=== PATIENT | male | born 1960 | race African-American/Black ===

== ENCOUNTER 2017-03-30 04:54 | Inpatient (IN) ==
[2017-03-30 05:18] LABS: Basophils # 0.1 10*3/uL (0.0-0.2); Basophils % 0.9 % (0.0-0.8); Eosinophils # 0.1 10*3/uL (0.0-0.87); Eosinophils % 1.1 % (0.00-10.9); Hemoglobin 14.8 GM/DL (14.0-18.0); Immature Granulocytes % 0.5 %; Immature Granulocytes Absolute 0.06 #; Lymphocytes # 2.6 10*3/uL (1.4-4.0); Mean Corpuscular HGB Conc 35.2 GM/DL (32-36); Mean Corpuscular Hemoglobin 28 PG (27-34); Mean Corpuscular Volume 79.4 FL (87-102); Mean Platelet Volume 12.3 FL (9.6-12.0); Monocytes # 0.8 10*3/uL (0.11-0.8); Neutrophils # 7.3 10*3/uL (1.4-7.4); Neutrophils % 66.5 % (38.7-73.9); Platelet Count 153 T/CUMM (130-400); Red Blood Count 5.29 MC/CUMM (3.8-5.5); Red Cell Distribution Width 13.5 % (9.3-17.3); White Blood Count 10.9 T/CUMM (4-12)
--- NOTE | 2017-03-30 05:18 | Emergency Department Note ---
ISenait Emily, am scribing for, and in the presence of, Bertin Ohara MD 05: 15. Lev Angeles Robert M, MD, personally performed the services described in this documentation, ascribed by Guadalupe Sapp in my presence, and it is both accurate and complete 517 . Arrival - Arrival Mode of Arrival: Stretcher Limitations: No Limitations Source: Patient - History of Present Illness Onset (ago): hour(s) Consistency: constant Severity: mild, moderate Severity scale (1-10): 4 <Bertin Ohara - Last Filed: 03/30/17 05:48> <Tano Villegas - Last Filed: 03/30/17 06:51> - Arrival Stated Complaint: weakness - History of Present Illness HPI Narrative: Pt is a 56 y/o male who came to ED by EMS for further evaluation of fall at home that happened while going to the bathroom earlier this morning and could not get up. Pt denies any pains at this time. He reports having slurred speech for 3 weeks now and no new sxs currently. Pt states he is in the middle of looking for a PCP. PMHx of CHF, IDDM, NIDDM, HTN. (Guadalupe Sapp) Pt is a 56 y/o male who came to ED by EMS for further evaluation of fall at home that happened while going to the bathroom earlier this morning and could not get up. Pt denies any pains at this time. He reports having slurred speech for 3 weeks now and no new sxs currently. Pt states he is in the middle of looking for a PCP. PMHx of CHF, IDDM, NIDDM, HTN. (Bertin Ohara) Allergies/Adverse Reactions: Allergies Allergy/AdvReac Type Severity Reaction Status Date / Time No Known Allergies Allergy Verified 03/30/17 05:10 Home Medications: Home Medications Medication Instructions Recorded Confirmed Type Carvedilol [Coreg] 12.5 mg PO BID #60 tablet 10/26/15 12/01/16 Rx Furosemide Tab [Lasix Tab] 80 mg PO DAILY #30 tablet 10/26/15 12/01/16 Rx Glimepiride [Amaryl] 4 mg PO DAILY W/BREAKFAST #30 10/26/15 12/01/16 Rx tablet cloNIDine TAB [Catapres Tab] 0.1 mg PO BID #60 tablet 10/26/15 12/01/16 Rx Insulin NPH Human Isophane 30 units SUBCUT 1800 03/09/16 12/07/16 History [NovoLIN N] Insulin NPH Human Isophane 60 unit SUBCUT QAM 03/09/16 12/07/16 History [NovoLIN N] dilTIAZem HCl [Cartia XT] 180 mg PO DAILY 12/01/16 12/04/16 History Pantoprazole Tab [Protonix Tab] 40 mg PO BIDAC 12/04/16 12/07/16 History Potassium Chloride [Klor-Con M20] 20 meq PO DAILY 12/04/16 12/07/16 History Review of System - Review of System 12 point system: reviewed and no additional remarkable complaints except as stated - Review of System Constitutional: Present: weakness (fell going to bathroom). Absent: fever Respiratory: Absent: respiratory distress Cardiovascular: Absent: chest pain Gastrointestinal: Absent: abdominal pain, nausea, vomiting Musculoskeletal: Absent: arm pain, back pain Skin: Absent: rash Neurological: Absent: headache <Bertin Ohara - Last Filed: 03/30/17 05:48> Medical,Surgical,& Family Hx - Medical History Cardio: History of: CHF, Hypertension Psychological: History of: Depression, Previous Suicide Attempt (2005) Neurology: History of: Cerebrovascular Accident No history of: Seizures HEENT: History of: Eye Problem (LEFT cataract) Endocrine: History of: Diabetes Mellitus (IDDM), Diabetes Mellitus (NIDDM) Respiratory: History of: Asthma, Obstructive Sleep Apnea (sleeps with cpap) Renal: No history of: Renal Problems Genitourinary: No history of: Bladder Problem, Kidney Stones Gastrointestinal: History of: GERD Musculoskeletal: History of: Back/Neck Problems (back pain) Hematology: No history of: Blood Transfusion Reaction Reproductive: No histroy: Reproductive Cancer Other: No history of: Anesthesia Reactions, Cancer, Miscellaneous Medical Problems ( benign tumor removed from right leg in 1994) - Surgical History Cardiac Surgeries: Patient Denies: Cardiac Catheterization HEENT Surgeries: Patient denies: Eye Surgery, Tonsilectomy & Adenoidectomy Abdominal Surgeries: Surgical HX of: EGD Patient denies: Abdominal Surgery, Appendectomy, Cholecystectomy, Colonoscopy , Gastric Bypass Surgery, Hernia Repair Reproductive Surgeries: Patient denies;: Genitourinary Surgery, Vasectomy Orthopedic Surgeries: Surgical HX of;: Orthopedic Surgery (right leg) - Family History Family History: Reports;: Family Diabetes (Mother), Family Heart Disease (Mother , Father), Family Hypertension (Mother, Father) Denies;: Family Anesthesia Reaction, Family Cancer, Family Psychiatric Problems, Family Stroke - Social History Smoking Status: Never smoker <Bertin Ohara - Last Filed: 03/30/17 05:48> Exam - General General appearance: alert, in no apparent distress - Head Head exam: Present: atraumatic, normocephalic - Eye Eye exam: Present: PERRL, EOMI - ENT ENT exam: Present: mucous membranes moist. Absent: mucous membranes dry - Neck Neck exam: Present: full ROM. Absent: tenderness - Chest Chest inspection: Present: symmetric chest wall rise. Absent: tenderness - Respiratory Respiratory exam: Present: normal lung sounds bilaterally. Absent: respiratory distress - Cardiovascular Cardiovascular exam: Present: regular rate, normal rhythm, normal heart sounds - Extremities Exam Extremities exam: Present: full ROM, other (left thigh was palpated but no mass palpable). Absent: tenderness, pedal edema - Neurological Exam Neurological exam: Present: alert, oriented X3, CN II-XII intact, other ( garbled speech but intelligible; no aphasia; right sided weakness residual and left side stable). Absent: motor sensory deficit - Psychiatric Psychiatric exam: Present: normal affect, normal mood - Skin Skin exam: Present: warm, dry <Bertin Ohara - Last Filed: 03/30/17 05:48> Vital Signs: Vital Signs Temperature 98.6 F 03/30/17 04:54 Pulse Rate 81 03/30/17 04:54 Respiratory Rate 16 03/30/17 04:55 Blood Pressure 228/123 03/30/17 04:54 O2 Sat by Pulse Oximetry 100 03/30/17 04:54 Course - Consultations Time: 05:48 <Bertin Ohara - Last Filed: 03/30/17 05:48> <Tano Villegas - Last Filed: 03/30/17 06:51> Course Narrative: Patient's clinical presentation, laboratory and radiograph findings were discussed with James who is covering the hospitalist service. Patient be seen here in the emergency room and evaluated for admission. (Tano Villegas) - Consultations Consultation #1: The patient will be signed out to Dr. Tano Villegas who will finish disposition. Chemistry and urine is pending. (Bertin Ohara) Results - Labs CBC & BMP: 03/30/17 05:06 03/30/17 05:06 Lab Results: I have reviewed the patients labs - Diagnostic Findings Procedure: CT: image reviewed by me (Chronic microvascular ischemic changes. No definite acute infarct. No hemorrhage.) <Bertin Ohara - Last Filed: 03/30/17 05:48> - Labs CBC & BMP: 03/30/17 05:06 03/30/17 05:06 Lab Results: I have reviewed the patients labs - EKG EKG results: interpreted by ERMD, sinus rhythm (71 bpm) - Diagnostic Findings Procedure: Chest x-ray: report reviewed by me (Normal chest) <Tano Villegas - Last Filed: 03/30/17 06:51> - Impressions Inferior lateral T-wave inversion which is an old finding. (Tano Villegas) Disposition <Bertin Ohara - Last Filed: 03/30/17 05:48> Case discussed with: patient, patient's family Time of Disposition: 06:51 <Tano Villegas - Last Filed: 03/30/17 06:51> Clinical Impression: Recent cerebrovascular accident (CVA), Severe hypertension Disposition: Still a Patient Condition: Guarded
[2017-03-30 05:33] LABS: Eosinophils 1 % (0-10); Hypochromasia 1+; Lymphocytes 28 % (20-55); Microcytosis 1+; Ovalocytes Slight; Segmented Neutrophils 63 % (50-85); Total Cells Counted 100
[2017-03-30 05:34] LABS: Platelet Estimate Adequate
[2017-03-30 05:44] LABS: Calcium 9.6 MG/DL (8.5-10.1); Magnesium 2.2 MG/DL (1.8-2.4); Osmolality,Calculated 282.7 MOS/KG (273-304); Potassium 3.7 MMOL/L (3.5-5.1)
[2017-03-30 06:35] LABS: Apearance,Urine CLEAR (Clear); Bacteria,Urine Occasional /HPF (Few); Bilirubin,Urine Negative (Negative); Blood, Urine Negative (Negative); Glucose,Urine (UA) >=500 mg/dL (Negative); Hyaline Casts,Urine 1 /LPF (0-3); Ketones,Urine Negative (Negative); Mucus,Urine Occasional /LPF (Occasional); Nitrite,Urine Negative (Negative); Protein,Urine 100 MG/DL; RBC,Urine <1 /HPF (0-4); Urine Color Yellow (Yellow); Urine Specific Gravity 1.008 (1.001-1.035); Urine Urobilinogen < 2.0 EU/DL (0.2-1.0); WBC,Urine <1 /HPF (0-6)
[2017-03-30] MEDS ORDERED: hydrALAZINE 20 MG/1 ML VIAL IV STA ×2 (06:38→08:36)
[2017-03-30] MEDS ORDERED: hydrALAZINE 20 MG/1 ML VIAL ONE ×2 (06:45→08:24)
--- NOTE | 2017-03-30 06:55 | CT Report ---
CT head/brain wo con Indication: Fall after recent stroke, no new symptoms Comparison: None Technique: Multiple axial tomographic images of the brain were obtained without the use of intravenous contrast. Findings: Midline structures are nondisplaced. There is no convincing evidence of acute intracranial hemorrhage . Mild periventricular and subcortical hypoattenuation noted which is nonspecific but consistent with chronic microvascular ischemic change. Demyelinating process and vasculitis less likely considerations. Probable mucous retention cyst within the right maxillary sinus. IMPRESSION: No acute intracranial abnormality demonstrated. The CT exam was performed using one or more of the following dose reduction techniques: Automated exposure control, adjustment of the mA and/or kV according to patient size, or use of iterative reconstruction technique. PROCEDURE INTERPRETED AT [facility] DEPARTMENT OF RADIOLOGY Final Report Signed by: Dr Lawrence Morales
[2017-03-30] MEDS ORDERED: METOPROLOL TARTRATE 5 MG/5 ML VIAL IV STA (07:01)
[2017-03-30] MEDS ORDERED: METOPROLOL TARTRATE 5 MG/5 ML VIAL IV ONE (07:04)
[2017-03-30] MEDS ORDERED: NITROGLYCERIN SL 0.4 MG TABLET SL PRN (07:04)
[2017-03-30] MEDS ORDERED: ASPIRIN CHEW 81 MG TABLET PO STA (07:04)
[2017-03-30] MEDS ORDERED: NITROGLYCERIN 2% OINT 1 INCH/GM PACK TOP STA (07:04)
[2017-03-30] MEDS ORDERED: NITROGLYCERIN SL 0.4 MG TABLET SL ONE (07:09)
--- NOTE | 2017-03-30 07:12 | XRay Report ---
XR chest 1V portable Indication: Right-sided weakness Comparison: Chest x-ray dated March 16, 2016 Technique: Single frontal view of the chest. Findings: The cardiomediastinal silhouette is stable in configuration. No focal consolidation, pleural effusion, or pneumothorax. Mild elevation of left hemidiaphragm. Visualized osseous and surrounding soft tissue structures appear grossly unchanged. IMPRESSION: No acute cardiopulmonary process demonstrated. PROCEDURE INTERPRETED AT [facility] DEPARTMENT OF RADIOLOGY Final Report Signed by: Dr Lawrence Morales
--- NOTE | 2017-03-30 07:15 | EKG Report ---
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
--- NOTE | 2017-03-30 07:17 | EKG Report ---
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
[2017-03-30] MEDS ORDERED: ASPIRIN CHEW 81 MG TABLET PO ONE (07:51)
[2017-03-30] MEDS ORDERED: NITROGLYCERIN 2% OINT 1 INCH/GM PACK TOP ONE (07:51)
--- NOTE | 2017-03-30 09:10 | Hospitalist History & Physical ---
Assessment and Plan - Time spent with patient Time spent with patient: Greater than 30 minutes (1) Recent cerebrovascular accident (CVA) Status: Acute Assessment and plan: Patient notes a several week history of left-sided weakness that has progressed to his right side. He also notes approximately 3 weeks of slurred speech. He is never seen a neurologist and currently does not have a PCP. Head CT on admission today shows no acute intracranial abnormality. Will follow up with an MRI of the head/brain. Carotid Dopplers and echocardiogram. Patient has been severely hypertensive but responded appropriately to hydralazine and metoprolol IV. Most recent BP was 172/97. Patient will be admitted to telemetry for further evaluation and treatment with neurology consultation. Current Visit: Yes (2) Chest pain Status: Acute Assessment and plan: Patient complained of chest pain unrelieved by nitroglycerin. He describes his pain as "reflux like". We have a GI cocktail in the ED and the patient reports that the pain has resolved. Initial troponin is 0.031. Will obtain serial troponins. Will continue to monitor. Cardiology has been consulted. Current Visit: Yes (3) Severe hypertension Status: Acute Assessment and plan: Blood pressure responded appropriately to IV hydralazine and metoprolol in the ED. We will continue to give IV metoprolol 5 mg every 6 hours, maintaining a systolic BP between 160-170 initially. Cardiology has been consulted. Current Visit: Yes (4) Renal insufficiency Status: Acute Assessment and plan: Patient's creatinine today is 1.90. He is followed by Dr. Odell Carrero outpatient. We are holding fluids to take his hypertensive state. Current Visit: No (5) Diabetes mellitus Status: Acute Assessment and plan: Accu-Cheks ACHS. Sliding scale per protocol. Current Visit: Yes History of Present Illness Chief complaint: Chest pain, right-sided weakness History of present illness: Mr. Bridger Miller is a 56 year old -[place] male with a past medical history significant for hypertension, congestive heart failure and diabetes mellitus who presents to the ED today with complaints of chest pain and right-sided weakness with onset this morning. Patient reports a 3-4 month history of left- sided weakness and a 3 week history of slurred speech. He admits that he has been "stubborn" and reluctant to come to the hospital, however on Sunday he noticed that the weakness shifted from his left side to his right side and this morning he could not walk. He reports that he needed to use the restroom this morning and attempted to go to the bathroom. He tells me that when he attempted to walk, his right foot began to slide. He eased himself to the floor and called his parents for assistance. He also notes that he has had unrelenting substernal chest pain since this morning that is nonradiating and nonreproducible to palpation. On exam, he is noticeably anxious and having difficulty breathing. However he is satting 97-100% on 2 L per nasal cannula. He confirms unilateral weakness, with decreased strength in both upper and lower right extremities, substernal chest pain which he describes as "reflux- like pain", nausea without vomiting. He denies any other pain at this time. His CT on admission shows no acute intracranial abnormality. Chest x-ray shows no acute cardiopulmonary process. EKG sinus rhythm with possible left atrial enlargement with T-wave abnormalities. Lab work is remarkable for creatinine 1.90, glucose 253, troponin 0.031. Case has been discussed with Dr. Villegas, ER physician, and Dr. Campbell, admitting physician and the patient will be admitted to the hospital medicine service for further evaluation and treatment. He is a full code. Home medications have been reviewed and reconciled. Neurology and cardiology consultation are pending. Home Medications Medication Instructions Recorded Confirmed Type Glimepiride [Amaryl] 4 mg PO DAILY W/BREAKFAST #30 10/26/15 12/01/16 Rx tablet cloNIDine TAB [Catapres Tab] 0.1 mg PO BID #60 tablet 10/26/15 12/01/16 Rx Insulin NPH Human Isophane 30 units SUBCUT 1800 03/09/16 12/07/16 History [NovoLIN N] Insulin NPH Human Isophane 60 unit SUBCUT QAM 03/09/16 12/07/16 History [NovoLIN N] dilTIAZem HCl [Cartia XT] 180 mg PO DAILY 12/01/16 12/04/16 History Potassium Chloride [Klor-Con M20] 20 meq PO DAILY 12/04/16 12/07/16 History Carvedilol [Coreg] 12.5 mg PO BID 03/30/17 03/30/17 History Furosemide Tab [Lasix Tab] 160 mg PO QAM 03/30/17 03/30/17 History Allergies Allergy/AdvReac Type Severity Reaction Status Date / Time No Known Allergies Allergy Verified 03/30/17 05:10 Medical,Surgical,& Family Hx - Medical History Cardio: History of: CHF, Hypertension Psychological: History of: Depression, Previous Suicide Attempt (2005) Neurology: History of: Cerebrovascular Accident No history of: Seizures HEENT: History of: Eye Problem (LEFT cataract) Endocrine: History of: Diabetes Mellitus (IDDM), Diabetes Mellitus (NIDDM) Respiratory: History of: Asthma, Obstructive Sleep Apnea (sleeps with cpap) Renal: No history of: Renal Problems Genitourinary: No history of: Bladder Problem, Kidney Stones Gastrointestinal: History of: GERD Musculoskeletal: History of: Back/Neck Problems (back pain) Hematology: No history of: Blood Transfusion Reaction Reproductive: No histroy: Reproductive Cancer Other: No history of: Anesthesia Reactions, Cancer, Miscellaneous Medical Problems ( benign tumor removed from right leg in 1994) - Surgical History Cardiac Surgeries: Patient Denies: Cardiac Catheterization HEENT Surgeries: Patient denies: Eye Surgery, Tonsilectomy & Adenoidectomy Abdominal Surgeries: Surgical HX of: EGD Patient denies: Abdominal Surgery, Appendectomy, Cholecystectomy, Colonoscopy , Gastric Bypass Surgery, Hernia Repair Reproductive Surgeries: Patient denies;: Genitourinary Surgery, Vasectomy Orthopedic Surgeries: Surgical HX of;: Orthopedic Surgery (right leg) - Family History Family History: Reports;: Family Diabetes (Mother), Family Heart Disease (Mother , Father), Family Hypertension (Mother, Father) Denies;: Family Anesthesia Reaction, Family Cancer, Family Psychiatric Problems, Family Stroke - Social History Smoking Status: Former smoker (quit 5 years ago) Frequency of Alcohol Use: None Type of Drug Use: None Marital Status: Lives With:: Parent Functional capacity: independent ambulation 12 point system: reviewed and no additional remarkable complaints except as stated Exam - Constitutional Vitals: Period Temp Pulse Resp BP Sys/Mike Pulse Ox Last 24 Hr 98.6 F-98.6 F 81-81 16-16 228-228/123-123 100 General appearance: morbidly obese, disheveled - Head Head exam: Present: normal inspection, normocephalic, atraumatic. Absent: abrasion, laceration - Eye Eye exam: Present: EOMI Pupils: Present: RUTHIE - ENT ENT exam: Present: normal exam - Neck Neck exam: Present: normal inspection. Absent: lymphadenopathy, tenderness - Respiratory Respiratory exam: Present: decreased breath sounds, rhonchi. Absent: chest wall tenderness, wheezes - Cardiovascular Cardiovascular exam: Present: regular rate and rhythm. Absent: carotid bruit, gallop - GI/Abdominal GI/Abdominal exam: Present: soft. Absent: ascites, distended, firm, mass, tenderness - Neurological Exam Neurological exam: Present: alert, oriented X3 - Expanded Neurological Exam Cranial nerves: EOM's intact: Normal, facial palsy with forehead movement: Normal, facial palsy without forehead movement: Normal, facial sensation: Normal , nystagmus: Normal Cerebellar function: finger to nose: Abnormal Right, heel to mosher: Abnormal Right Sensory exam: LE 2 point discrimination: Abnormal Right, lower extremity light touch: Abnormal Right, lower extremity pin prick: Abnormal Right, lower extremity temperature: Abnormal Right, UE 2 point discrimination: Abnormal Right , upper extremity light touch: Abnormal Right, upper extremity pin prick: Abnormal Right, upper extremity temperature: Abnormal Right Neuro motor strength exam: LUE: 4, RUE: 1/2, LLE: 3, RLE: 0 Coma Scale Eye Opening: Spontaneous Coma Scale Motor Response: Obeys Commands Coma Scale Verbal Response: Oriented Coma Scale Total: 15 - Psychiatric Psychiatric exam: Present: anxious, depressed - Skin Skin exam: Present: normal color, warm, dry Results - Labs CBC & BMP: 03/30/17 05:06 03/30/17 05:06 Lab Results: I have reviewed the past 24 hour labs - EKG EKG results: interpreted by EDDIE, sinus rhythm - Diagnostic Findings Procedure: Chest x-ray: image reviewed by me, report reviewed by me ( Unremarkable), CT: image reviewed by me, report reviewed by me (Unremarkable) Quality Measures - Stroke Presenting Symptoms: Right hemiparesis Symptom Onset Unknown: Yes
[2017-03-30] MEDS ORDERED: ALUM/MAG/SIMETH/LIDO VISC 1:1 30 ML BOTTLE PO STA (09:15)
[2017-03-30 09:19] LABS: Troponin I Only 0.031 NG/ML (0.00-0.045)
[2017-03-30] MEDS ORDERED: ALUM/MAG/SIMETH/LIDO VISC 1:1 30 ML BOTTLE PO ONE (09:22)
[2017-03-30] MEDS ORDERED: GLUCAGON 1 MG VIAL IM PRN (10:13)
[2017-03-30] MEDS ORDERED: DEXTROSE 50% 25 GM/50 ML VIAL IV PRN (10:13)
[2017-03-30 11:22] LABS: Risk Ratio 3.82; Thyroid Stimulating Hormone 1.05 uIU/ml (0.358-3.74); VLDL CHOLESTEROL 33.2 MG/DL
--- NOTE | 2017-03-30 11:44 | Ultrasound Report ---
US carotid duplex BI Indication: Right-sided weakness, slurred speech. Comparison: None. Technique: Multiple longitudinal and transverse real-time sonographic images of the bilateral carotid arterial systems are obtained with grayscale, spectral, and color Doppler analysis. Findings: Peak systolic velocities within the right CCA, proximal ICA, and distal ICA are 53, 47, and 42 cm/s respectively. Peak systolic velocities within the left CCA, proximal ICA, and distal ICA are 87, 94, and 34 cm/s respectively. ICA/CCA ratios on the right and left are 0.9 and 1.1 respectively. Antegrade flow demonstrated within the bilateral vertebral arteries. Grayscale imaging demonstrates mild bilateral atherosclerotic plaque. IMPRESSION: No convincing sonographic evidence of significant (50% or greater) narrowing of either cervical internal carotid artery. Indirect NASCET criteria utilized. PROCEDURE INTERPRETED AT [facility] DEPARTMENT OF RADIOLOGY Final Report Signed by: Dr Lawrence Morales
[2017-03-30] MEDS: ENOXAPARIN 40 MG/0.4 ML SYRINGE SUBCUT SCH (11:50)
[2017-03-30] MEDS ORDERED: METOPROLOL TARTRATE 5 MG/5 ML VIAL IV SCH (12:00)
--- NOTE | 2017-03-30 12:04 | ECHO Report ---
Neel Sparks Exam Date: 03/30/2017 10:43 Referring Physician: Technologist: Florecita Wesley Age: 56 Ht (in): 69 Wt (lb): 276 Gender: M Exam Location: [facility] Echo Indications: Rt. sided weakness, DM, chest pain, Hx. CHF, FAM, hx. GERD, severe HTN, renal insuff. BP: 166 / 112 HR: 101 Rhythm: Sinus Technical Quality: IMPRESSIONS Normal chamber sizes 3+ concentric LVH Hyperdynamic LV systolic function with ejection fraction estimated greater than 70% without segmental wall motion normality No significant valvular abnormality Diastolic dysfunction MEASUREMENTS (Male / Female) Normal Values 2D ECHO LV Diastolic Diameter PLAX 3.9 cm 4.2 - 5.9 / 3.9 - 5.3 cm LV Systolic Diameter PLAX 2.2 cm LV Fractional Shortening PLAX 43.4 % IVS Diastolic Thickness 1.5 cm 0.6 - 1.0 / 0.6 - 0.9 cm LVPW Diastolic Thickness 1.2 cm 0.6 - 1.0 / 0.6 - 0.9 cm RV Internal Dim ED PLAX 2.2 cm Aortic Root Diameter 2.7 cm LA Systolic Diameter LX 3.4 cm 3.0 - 4.0 / 2.7 - 3.8 cm FINDINGS Left Ventricle Normal left ventricular cavity size. Mild - moderate concentric left ventricular hypertrophy with diastolic dysfunction. Left ventricular ejection fraction is estimated at 60- 65 %. Right Ventricle Normal right ventricular size. Right Atrium Normal right atrial size. Left Atrium Normal left atrial size. Mitral Valve Morphologically normal mitral valve. Trace mitral valve regurgitation. Aortic Valve The aortic valve is trileaflet, delicate and has normal motion. Tricuspid Valve Morphologically normal tricuspid valve. Pulmonic Valve Morphologically normal pulmonic valve. Pericardium No pericardial effusion. Aorta Normal size aortic root and proximal ascending aorta. Km Rosenbaum (Electronically Signed) Final Date: 30 March 2017 12:03
[2017-03-30] MEDS: INSULIN LISPRO 100 UNIT/ML SUBCUT SCH ×4 (12:43→21:49)
--- NOTE | 2017-03-30 14:36 | Neurology Consult Note ---
History of Present Illness History of present illness: Mr. Bridger Miller is a 56 year old right-handed -[place] gentleman with a past medical history significant for hypertension, congestive heart failure and diabetes mellitus history of a stroke with residual mild left-sided weakness who presents to the ED with complaints of chest pain and right-sided weakness with onset Sunday morning. It affected his speech as well. On Sunday he noticed that the weakness was primarily in the right side and yesterday he could not walk. He also notes that he has had substernal chest pain that is nonradiating and nonreproducible to palpation. His CT on admission shows no acute intracranial abnormality. Chest x-ray shows no acute cardiopulmonary process. EKG sinus rhythm with possible left atrial enlargement with T-wave abnormalities. His swallowing is okay however his speech is quite slurred. Hemoglobin A1c is 11.9. He lives at home with his parents. Echocardiogram reveals ejection fraction of 70%. Carotid ultrasound is unremarkable. Home Medications Medication Instructions Recorded Confirmed Type Glimepiride [Amaryl] 4 mg PO DAILY W/BREAKFAST #30 10/26/15 03/30/17 Rx tablet cloNIDine TAB [Catapres Tab] 0.1 mg PO BID #60 tablet 10/26/15 03/30/17 Rx Insulin NPH Human Isophane 30 units SUBCUT 1800 03/09/16 03/30/17 History [NovoLIN N] Insulin NPH Human Isophane 60 unit SUBCUT QAM 03/09/16 03/30/17 History [NovoLIN N] Potassium Chloride [Klor-Con M20] 20 meq PO DAILY 12/04/16 03/30/17 History Carvedilol [Coreg] 12.5 mg PO BID 03/30/17 03/30/17 History Furosemide Tab [Lasix Tab] 160 mg PO QAM 03/30/17 03/30/17 History dilTIAZem HCl [Taztia XT] 180 mg PO DAILY 03/30/17 03/30/17 History Allergies Allergy/AdvReac Type Severity Reaction Status Date / Time No Known Allergies Allergy Verified 03/30/17 05:10 12 point system: reviewed and no additional remarkable complaints except as stated Medical,Surgical,& Family Hx - Medical History Cardio: History of: CHF, Hypertension Psychological: History of: Depression, Previous Suicide Attempt (2005) Neurology: History of: Cerebrovascular Accident No history of: Seizures HEENT: History of: Eye Problem (LEFT cataract) Endocrine: History of: Diabetes Mellitus (IDDM), Diabetes Mellitus (NIDDM) Respiratory: History of: Asthma, Obstructive Sleep Apnea (sleeps with cpap) Renal: No history of: Renal Problems Genitourinary: No history of: Bladder Problem, Kidney Stones Gastrointestinal: History of: GERD Musculoskeletal: History of: Back/Neck Problems (back pain) Hematology: No history of: Blood Transfusion Reaction Reproductive: No histroy: Reproductive Cancer Other: No history of: Anesthesia Reactions, Cancer, Miscellaneous Medical Problems ( benign tumor removed from right leg in 1994) - Surgical History Cardiac Surgeries: Patient Denies: Cardiac Catheterization HEENT Surgeries: Patient denies: Eye Surgery, Tonsilectomy & Adenoidectomy Abdominal Surgeries: Surgical HX of: EGD Patient denies: Abdominal Surgery, Appendectomy, Cholecystectomy, Colonoscopy , Gastric Bypass Surgery, Hernia Repair Reproductive Surgeries: Patient denies;: Genitourinary Surgery, Vasectomy Orthopedic Surgeries: Surgical HX of;: Orthopedic Surgery (right leg) - Family History Family History: Reports;: Family Diabetes (Mother), Family Heart Disease (Mother , Father), Family Hypertension (Mother, Father) Denies;: Family Anesthesia Reaction, Family Cancer, Family Psychiatric Problems, Family Stroke - Social History Smoking Status: Former smoker Frequency of Alcohol Use: None Type of Drug Use: None Exam - Constitutional Vitals: Period Temp Pulse Resp BP Sys/Mike Pulse Ox Last 24 Hr 97.9 F-98.6 F 64-101 16-24 153-239/08-123 96-100 Exam: GENERAL: Patient is in no acute distress. NECK: Neck is supple. There is no JVD. No carotid bruits present. No thyroid masses. CVS: First and second heart sounds are normal. There is no S3 present. Regular rate and rhythm. RESPIRATORY: Lungs are clear to auscultation without any rales or rhonchi. ABDOMEN: Soft and non-tender. Bowel sounds are present. There is no hepatosplenomegaly. EXT: There is no palpable edema. Peripheral pulses are present. Skin: No rashes Central Nervous system: General: Alert, awake and Oriented x 3 Speech: Fluent but dysarthric Comprehension: Intact and normal Facial expressions: Normal Cranial Nerves: CN1/Olfactory: Normal CN II/ Optic: Normal, Visual Shin unreliable CN III, and : RUTHIE & EOMI CN V: Normal & intact CN VII: face is symmetric CNVIII: Normal CN XI/X/XI/XII: Intact and Normal Motor: Bulk and Tone is normal. Strength in the right 2/5 Strength in the left 4/5 Sensory: Decreased for all the modalities of PP, LT and temp sense in the stockings to Reflexes: 2-3+ and symmetrical Cerebellar function: Cannot be assessed Toes: Equivocal Gait: Not tested Results - Labs CBC & BMP: 03/30/17 05:06 03/30/17 05:06 Assessment and Plan (1) Right sided weakness Status: Acute Assessment and plan: This does sound like a acute stroke in the left subcortical region. Agree with MRI of the brain Add Lipitor 10 mg daily Consult PT OT and ST Consult TMR if insurance allows Thank you for the consultation Current Visit: Yes
--- NOTE | 2017-03-30 15:35 | Magnetic Resonance Report ---
MRI brain without contrast Indication: Right-sided weakness, slurred speech Comparison: None available Technique: Axial sagittal and coronal imaging of the brain is performed without contrast. T1, T2, FLAIR and diffusion weighted sequences are performed. Findings: Small focus of restricted diffusion is seen in the left basal ganglia. This area has all amount of corresponding T2 signal hyperintensity. No other evidence of restricted diffusion seen. No evidence of intracranial hemorrhage, mass, mass effect or midline shift is seen. There is moderate diffuse cerebral atrophy. There are areas of white matter T2 signal hyperintensity in both cerebral hemispheres, mostly periventricular in location. Remaining brain parenchyma has normal signal and differentiation. The ventricles and cisterns are appropriate in caliber. Posterior fossa, mid brain and pituitary gland appear within normal limits. Mucus retention cyst is present in the right maxillary sinus 2.0 cm in size. No other evidence of cranial or skull base abnormality seen. Impression: Small focus of restricted diffusion in the left basal ganglia, likely subacute infarct. PROCEDURE INTERPRETED AT [facility] DEPARTMENT OF RADIOLOGY Final Report Signed by: Dr. Mahendra Chavez
--- NOTE | 2017-03-30 15:50 | Cardiology Consult Note ---
<Kristie Deal E - Last Filed: 03/30/17 16:04> Assessment and Plan - Time spent with patient Time spent with patient: Greater than 30 minutes (due to assessment, plan, and documentation) (1) Chest pain Status: Acute Assessment and plan: See plan of care listed below. Current Visit: Yes (2) Right sided weakness Status: Acute Assessment and plan: See plan of care listed below. Current Visit: Yes (3) Severe hypertension Status: Chronic Assessment and plan: See plan of care listed below. Current Visit: Yes (4) Renal insufficiency Status: Chronic Assessment and plan: See plan of care listed below. Current Visit: Yes (5) Diabetes mellitus Status: Chronic Assessment and plan: See plan of care listed below. Current Visit: Yes (6) Non-compliance Status: Chronic Assessment and plan: See plan of care listed below. Current Visit: No (7) Obesity Status: Chronic Assessment and plan: See plan of care listed below. Current Visit: Yes (8) Obstructive sleep apnea Status: Chronic Assessment and plan: See plan of care listed below. Current Visit: Yes History of Present Illness - Data of Consult Patient: new to practice Consult date: 03/30/17 Requesting Physician: Lorne So - Consult Narrative Reason for consult: chest pain History of present illness: [employer]: none, new to cardiology Mr. Bridger Miller is a 56 year old male with a history of uncontrolled hypertension, uncontrolled diabetes mellitus, prior CVA, renal insufficiency, obstructive sleep apnea (reportedly compliant with CPAP), and non -compliance. Risk factors are significant for: hypertension, diabetes, obesity, sedentary lifestyle. He has a history of prior CVA in October 2015 and now lives with his parents. He requires the use of a walker or cane for ambulation. Mr. Sparks presented to the emergency room with complaints of chest pain and right -sided weakness. He reports he has been experiencing left sided weakness for the past 3-4 months and has recently begun experiencing slurred speech. He had been using a cane/walker for ambulation, but on Sunday, his weakness shifted from his left sided to his right side. This morning, he was having difficulty walking and also experienced substernal chest pain. He reports that he frequently experiences substernal chest pain that he describes as feeling like acid reflux. He reports this is worse when he is lying down and he frequently has to take TUMS and Zantac for relief. He also reports nausea without vomiting and occasional palpitations. He also tells me that he "gives out of breath" easily and has noticed this progressively worsening over the past 6 months. He tells me that it is worse when he is ambulatory and he has even noticed conversational dyspnea. Upon arrival, his CT head showed no acute intracranial abnormality. Carotid dopplers revealed no sign of narrowing (50% or greater) of either cervical internal carotid artery. Echocardiogram revealed 3+ LVH, EF >70% s wall motion abnormality, no valvular abnormalities, and diastolic dysfunction. D-Dimer was 0.6. MRI of the brain revealed small focus of restricted diffusion in the left basal ganglia likely representing subacute infarct. ASSESSMENT/PLAN: 1. CHEST PAIN - He has had 2 sets of negative cardiac biomarkers. EKG shows diffuse T-wave inversions in numerous leads, no acute changes from previous EKGs. The chest discomfort he describes is suspicious for GI etiology but his dyspnea sound suspicious for angina. Differential diagnoses could include: GERD , COPD, emphysema, obesity, CHF. We'll check a BNP. Echo showed EF>70% with diastolic dysfunction. Will further discuss with Dr. Rosenbaum and await additional recommendations. 2. RIGHT SIDED WEAKNESS - Neurology has been consulted. Patient underwent MRI of the brain this afternoon with revealed small focus of restricted diffusion in the left basal ganglia. His aspirin has been stopped and he has been started on Aggrenox. He has also been started on Lipitor 10 mg PO daily. PT, OT, and ST have been consulted. Case management has also been consulted for possible need for rehab. 3. UNCONTROLLED HYPERTENSION - BP 228/123 upon admission. 4. RENAL INSUFFICIENCY - Creatinine currently 1.9. Upon review of previous records, this seems to be right around his baseline. Will avoid nephrotoxic agents and monitor BMP. 5. UNCONTROLLED DIABETES MELLITUS - Hemoglobin A1C 11.9 on admission. He has been started on accuchecks with sliding scale insulin. 6. NON-COMPLIANCE - Patient has a long history of non-compliance dating back to early 2015 by his previous records. 7. OBESITY - Chronic. 8. OBSTRUCTIVE SLEEP APNEA - Continue CPAP nightly. CC: Alfonzo Campbell MD - Home Medications and Allergies Home Medications: Home Medications Medication Instructions Recorded Confirmed Type Glimepiride [Amaryl] 4 mg PO DAILY W/BREAKFAST #30 10/26/15 03/30/17 Rx tablet cloNIDine TAB [Catapres Tab] 0.1 mg PO BID #60 tablet 10/26/15 03/30/17 Rx Insulin NPH Human Isophane 30 units SUBCUT 1800 03/09/16 03/30/17 History [NovoLIN N] Insulin NPH Human Isophane 60 unit SUBCUT QAM 03/09/16 03/30/17 History [NovoLIN N] Potassium Chloride [Klor-Con M20] 20 meq PO DAILY 12/04/16 03/30/17 History Carvedilol [Coreg] 12.5 mg PO BID 03/30/17 03/30/17 History Furosemide Tab [Lasix Tab] 160 mg PO QAM 03/30/17 03/30/17 History dilTIAZem HCl [Taztia XT] 180 mg PO DAILY 03/30/17 03/30/17 History Allergies/Adverse Reactions: Allergies Allergy/AdvReac Type Severity Reaction Status Date / Time No Known Allergies Allergy Verified 03/30/17 05:10 Review of systems: - Constitutional: Present: weakness, As per HPI. Absent: anorexia, chills, daytime sleepiness, excessive sweating, fever(s), frequent falls, headache(s), increased appetite, lethargy, malaise, night sweats, stops breathing during sleep, weight gain, weight loss, fatigue. - EENT Eyes: Present: As per HPI. Absent: blurry vision, diplopia, loss of vision Ears: Present: As per HPI. Absent: decreased hearing, ear discharge, ear pain Nose, mouth and throat: Present: As per HPI. Absent: dysphagia, epistaxis, headache(s), hoarseness, lip swelling, nasal congestion, neck mass, neck pain, sinus pressure, sore throat, throat swelling, tongue swelling, vertigo - Cardiovascular: Present: chest pain at rest, dyspnea, dyspnea on exertion, as per HPI. Absent: chest pain with activity, edema, claudication, diaphoresis , radiating jaw, neck or arm pain, lightheadedness, orthopnea, palpitations, PND - Respiratory: Present: dyspnea, dyspnea on exertion, cough, as per HPI. Absent : hemoptysis, wheezing, snoring, pain on inspiration - Gastrointestinal: Present: nausea, heartburn, As per HPI. Absent: abdominal pain, bloating, change in bowel habits, constipation, diarrhea, hematemesis, hematochezia, loose stools, melena, vomiting - Genitourinary: Present: As per HPI. Absent: difficulty urinating, dysuria, flank pain, hematuria, nocturia, urinary frequency, urinary incontinence - Musculoskeletal: Present: right-sided weakness, As per HPI. Absent: arthralgias, back pain, joint swelling, limited range of motion, muscle cramps, myalgias - Neurological: Present: abnormal speech, As per HPI. Absent: abnormal gait, behavioral changes, confusion, convulsions, disequilibrium, dizziness, frequent falls, headache(s), memory loss, numbness, paresthesias, radicular pain, syncope , tremor(s) - Psychiatric: Present: As per HPI. Absent: anxiety, confusion, depression, panic attacks - Endocrine: Present: As per HPI. Absent: cold intolerance, fatigue, heat intolerance, polydipsia, polyphagia - Hematologic/Lymphatic: Present: As per HPI. Absent: easy bleeding, easy bruising, lymphadenopathy Medical,Surgical,& Family Hx - Medical History Cardio: History of: CHF, Hypertension Psychological: History of: Depression, Previous Suicide Attempt (2005) Neurology: History of: Cerebrovascular Accident No history of: Seizures HEENT: History of: Eye Problem (LEFT cataract) Endocrine: History of: Diabetes Mellitus (IDDM), Diabetes Mellitus (NIDDM) Respiratory: History of: Asthma, Obstructive Sleep Apnea (sleeps with cpap) Renal: No history of: Renal Problems Genitourinary: No history of: Bladder Problem, Kidney Stones Gastrointestinal: History of: GERD Musculoskeletal: History of: Back/Neck Problems (back pain) Hematology: No history of: Blood Transfusion Reaction Reproductive: No histroy: Reproductive Cancer Other: No history of: Anesthesia Reactions, Cancer, Miscellaneous Medical Problems ( benign tumor removed from right leg in 1994) - Surgical History Cardiac Surgeries: Patient Denies: Cardiac Catheterization HEENT Surgeries: Patient denies: Eye Surgery, Tonsilectomy & Adenoidectomy Abdominal Surgeries: Surgical HX of: EGD Patient denies: Abdominal Surgery, Appendectomy, Cholecystectomy, Colonoscopy , Gastric Bypass Surgery, Hernia Repair Reproductive Surgeries: Patient denies;: Genitourinary Surgery, Vasectomy Orthopedic Surgeries: Surgical HX of;: Orthopedic Surgery (right leg) - Family History Family History: Reports;: Family Diabetes (Mother), Family Heart Disease (Mother , Father), Family Hypertension (Mother, Father) Denies;: Family Anesthesia Reaction, Family Cancer, Family Psychiatric Problems, Family Stroke - Social History Smoking Status: Former smoker Frequency of Alcohol Use: None Type of Drug Use: None Marital Status: Legally Lives With:: Parent Functional capacity: uses cane/walker Physical Examination Vital Signs Temp Pulse Resp BP Pulse Ox 98.6 F 81 16 228/123 100 03/30/17 04:54 03/30/17 04:54 03/30/17 04:54 03/30/17 04:54 03/30/17 04:54 Exam: General appearance: Pleasant and cooperative. Overweight, no acute distress. Slurred speech. - Head Head exam: Present: normal inspection, normocephalic, atraumatic. Absent: hematoma, laceration - Eye Eye exam: Present: EOMI. Absent: conjunctival injection, nystagmus, periorbital swelling, scleral icterus, laceration to eyelids Pupils: Present: PERRL. Absent: constricted, dilated, fixed, irregular, unequal - ENT ENT exam: Present: normal exam, normal external ear exam - Neck Neck exam: Present: normal inspection. Absent: lymphadenopathy, meningismus, tenderness, thyromegaly, carotid bruit - Respiratory Respiratory exam: Present: Diminished breath sounds in posterior bases with scattered rhonchi. Absent: accessory muscle use, chest wall tenderness. - Cardiovascular Cardiovascular exam: Present: regular rate and rhythm. Absent: gallop, JVD, rubs, murmur - GI/Abdominal GI/Abdominal exam: Present: normal bowel sounds, soft. Absent: distended, firm , guarding, hernia, mass, tenderness, rebound. - Extremities Exam Extremities exam: Present: normal inspection, normal capillary refill. Upper extremity pulses 2+. Lower extremity pulses 2+. Absent: calf tenderness, edema -Musculoskeletal Exam Musculoskeletal: Present: No Fluid Collection, No Pain, right-sided weakness in RUE and RLE - Back Exam Back exam: Present: normal inspection. Absent: muscle spasm, vertebral tenderness - Neurological Exam Neurological exam: Present: alert, oriented X3, grossly intact without resting or essential tremor - Psychiatric Psychiatric exam: Present: normal affect, normal mood - Skin Skin exam: Present: normal color, warm, dry, intact. Absent: cyanosis, diaphoretic, rash, urticaria Result/EKG - Labs CBC & BMP: 03/30/17 05:06 03/30/17 05:06 Lab Results: I have reviewed the past 24 hour labs Labs: Laboratory Results - last 24 hr 03/30/17 03/30/17 03/30/17 05:06 05:06 05:06 WBC 10.9 RBC 5.29 Hgb 14.8 Hct 42.0 MCV 79.4 L MCH 28 MCHC 35.2 RDW 13.5 Plt Count 153 MPV 12.3 H Neut % (Auto) 66.5 Lymph % (Auto) 24.0 Barrow % (Auto) 7.0 Eos % (Auto) 1.1 Baso % (Auto) 0.9 H Neut # (Auto) 7.3 Lymph # (Auto) 2.6 B[place] # (Auto) 0.8 Eos # (Auto) 0.1 Baso # (Auto) 0.1 Total Counted 100 Immature Gran % 0.5 Nucleated RBC % 0.0 Immature Gran # 0.06 Segmented Neutrophils 63 Lymphocytes 28 Monocytes 8 Eosinophils 1 Nucleated RBCs # 0.00 Platelet Estimate Adequate Hypochromasia 1+ Microcytosis 1+ Ovalocytes Slight Morphology Comment D-Dimer, Quantitative Sodium 138 Potassium 3.7 Chloride 104 Carbon Dioxide 26 Anion Gap 11.7 BUN 9 Creatinine 1.90 H GFR Calculation 61 BUN/Creatinine Ratio 4.00 L Glucose 253 H POC Glucose Hemoglobin A1c Calculated Osmolality 282.7 Calcium 9.6 Magnesium 2.2 Total Creatine Kinase CK-MB (CK-2) Troponin I Triglycerides Cholesterol LDL Cholesterol VLDL Cholesterol HDL Cholesterol Heart Disease Risk Ratio Free T4 TSH 3rd Generation Urine Color Yellow Urine Appearance Clear Urine pH 6.0 Ur Specific Carver 1.008 Urine Protein 100 Urine Glucose (UA) >=500 Urine Ketones Negative Urine Blood Negative Urine Nitrate Negative Urine Bilirubin Negative Urine Urobilinogen < 2.0 H Urine Leukocytes Negative Urine RBC <1 Urine WBC <1 Urine Bacteria Occasional Hyaline Casts 1 Urine Mucus Occasional Ur Culture Indicated? Not indicated 03/30/17 03/30/17 03/30/17 08:32 08:32 10:36 WBC RBC Hgb Hct MCV MCH MCHC RDW Plt Count MPV Neut % (Auto) Lymph % (Auto) B[place] % (Auto) Eos % (Auto) Baso % (Auto) Neut # (Auto) Lymph # (Auto) [place] # (Auto) Eos # (Auto) Baso # (Auto) Total Counted Immature Gran % Nucleated RBC % Immature Gran # Segmented Neutrophils Lymphocytes Monocytes Eosinophils Nucleated RBCs # Platelet Estimate Hypochromasia Microcytosis Ovalocytes Morphology Comment D-Dimer, Quantitative 0.6 Sodium Potassium Chloride Carbon Dioxide Anion Gap BUN Creatinine GFR Calculation BUN/Creatinine Ratio Glucose POC Glucose Hemoglobin A1c 11.2 H Calculated Osmolality Calcium Magnesium Total Creatine Kinase 102 CK-MB (CK-2) 1.8 Troponin I 0.031 Triglycerides Cholesterol LDL Cholesterol VLDL Cholesterol HDL Cholesterol Heart Disease Risk Ratio Free T4 TSH 3rd Generation Urine Color Urine Appearance Urine pH Ur Specific Carver Urine Protein Urine Glucose (UA) Urine Ketones Urine Blood Urine Nitrate Urine Bilirubin Urine Urobilinogen Urine Leukocytes Urine RBC Urine WBC Urine Bacteria Hyaline Casts Urine Mucus Ur Culture Indicated? 03/30/17 03/30/17 03/30/17 10:37 10:37 10:37 WBC RBC Hgb Hct MCV MCH MCHC RDW Plt Count MPV Neut % (Auto) Lymph % (Auto) B[place] % (Auto) Eos % (Auto) Baso % (Auto) Neut # (Auto) Lymph # (Auto) [place] # (Auto) Eos # (Auto) Baso # (Auto) Total Counted Immature Gran % Nucleated RBC % Immature Gran # Segmented Neutrophils Lymphocytes Monocytes Eosinophils Nucleated RBCs # Platelet Estimate Hypochromasia Microcytosis Ovalocytes Morphology Comment D-Dimer, Quantitative Sodium Potassium Chloride Carbon Dioxide Anion Gap BUN Creatinine GFR Calculation BUN/Creatinine Ratio Glucose POC Glucose Hemoglobin A1c Calculated Osmolality Calcium Magnesium Total Creatine Kinase CK-MB (CK-2) Troponin I 0.037 Triglycerides 166 H Cholesterol 149 LDL Cholesterol 83.0 VLDL Cholesterol 33.2 HDL Cholesterol 39 L Heart Disease Risk Ratio 3.82 Free T4 1.29 TSH 3rd Generation 1.050 Urine Color Urine Appearance Urine pH Ur Specific Carver Urine Protein Urine Glucose (UA) Urine Ketones Urine Blood Urine Nitrate Urine Bilirubin Urine Urobilinogen Urine Leukocytes Urine RBC Urine WBC Urine Bacteria Hyaline Casts Urine Mucus Ur Culture Indicated? 03/30/17 03/30/17 12:07 13:19 WBC RBC Hgb Hct MCV MCH MCHC RDW Plt Count MPV Neut % (Auto) Lymph % (Auto) B[place] % (Auto) Eos % (Auto) Baso % (Auto) Neut # (Auto) Lymph # (Auto) [place] # (Auto) Eos # (Auto) Baso # (Auto) Total Counted Immature Gran % Nucleated RBC % Immature Gran # Segmented Neutrophils Lymphocytes Monocytes Eosinophils Nucleated RBCs # Platelet Estimate Hypochromasia Microcytosis Ovalocytes Morphology Comment D-Dimer, Quantitative Sodium Potassium Chloride Carbon Dioxide Anion Gap BUN Creatinine GFR Calculation BUN/Creatinine Ratio Glucose POC Glucose 259 H Hemoglobin A1c Calculated Osmolality Calcium Magnesium Total Creatine Kinase CK-MB (CK-2) Troponin I 0.043 Triglycerides Cholesterol LDL Cholesterol VLDL Cholesterol HDL Cholesterol Heart Disease Risk Ratio Free T4 TSH 3rd Generation Urine Color Urine Appearance Urine pH Ur Specific Carver Urine Protein Urine Glucose (UA) Urine Ketones Urine Blood Urine Nitrate Urine Bilirubin Urine Urobilinogen Urine Leukocytes Urine RBC Urine WBC Urine Bacteria Hyaline Casts Urine Mucus Ur Culture Indicated? - EKG EKG results: interpreted by me, sinus rhythm (with diffuse ST-T abnormalities) Quality Measures - Stroke Presenting Symptoms: Right hemiparesis Symptom Onset Unknown: Yes <Km Rosenbaum - Last Filed: 03/30/17 17:29> History of Present Illness - Consult Narrative History of present illness: Mr. Bridger Miller is a 56 year old male CC: Alfonzo Campbell MD Physical Examination Vital Signs Temp Pulse Resp BP Pulse Ox 98.6 F 81 16 228/123 100 03/30/17 04:54 03/30/17 04:54 03/30/17 04:54 03/30/17 04:54 03/30/17 04:54 Result/EKG - Labs CBC & BMP: 03/30/17 05:06 03/30/17 05:06 Labs: Laboratory Results - last 24 hr 03/30/17 03/30/17 03/30/17 05:06 05:06 05:06 WBC 10.9 RBC 5.29 Hgb 14.8 Hct 42.0 MCV 79.4 L MCH 28 MCHC 35.2 RDW 13.5 Plt Count 153 MPV 12.3 H Neut % (Auto) 66.5 Lymph % (Auto) 24.0 Barrow % (Auto) 7.0 Eos % (Auto) 1.1 Baso % (Auto) 0.9 H Neut # (Auto) 7.3 Lymph # (Auto) 2.6 [place] # (Auto) 0.8 Eos # (Auto) 0.1 Baso # (Auto) 0.1 Total Counted 100 Immature Gran % 0.5 Nucleated RBC % 0.0 Immature Gran # 0.06 Segmented Neutrophils 63 Lymphocytes 28 Monocytes 8 Eosinophils 1 Nucleated RBCs # 0.00 Platelet Estimate Adequate Hypochromasia 1+ Microcytosis 1+ Ovalocytes Slight Morphology Comment D-Dimer, Quantitative Sodium 138 Potassium 3.7 Chloride 104 Carbon Dioxide 26 Anion Gap 11.7 BUN 9 Creatinine 1.90 H GFR Calculation 61 BUN/Creatinine Ratio 4.00 L Glucose 253 H POC Glucose Hemoglobin A1c Calculated Osmolality 282.7 Calcium 9.6 Magnesium 2.2 Total Creatine Kinase CK-MB (CK-2) Troponin I Triglycerides Cholesterol LDL Cholesterol VLDL Cholesterol HDL Cholesterol Heart Disease Risk Ratio Free T4 TSH 3rd Generation Urine Color Yellow Urine Appearance Clear Urine pH 6.0 Ur Specific Carver 1.008 Urine Protein 100 Urine Glucose (UA) >=500 Urine Ketones Negative Urine Blood Negative Urine Nitrate Negative Urine Bilirubin Negative Urine Urobilinogen < 2.0 H Urine Leukocytes Negative Urine RBC <1 Urine WBC <1 Urine Bacteria Occasional Hyaline Casts 1 Urine Mucus Occasional Ur Culture Indicated? Not indicated 03/30/17 03/30/17 03/30/17 08:32 08:32 10:36 WBC RBC Hgb Hct MCV MCH MCHC RDW Plt Count MPV Neut % (Auto) Lymph % (Auto) [place] % (Auto) Eos % (Auto) Baso % (Auto) Neut # (Auto) Lymph # (Auto) [place] # (Auto) Eos # (Auto) Baso # (Auto) Total Counted Immature Gran % Nucleated RBC % Immature Gran # Segmented Neutrophils Lymphocytes Monocytes Eosinophils Nucleated RBCs # Platelet Estimate Hypochromasia Microcytosis Ovalocytes Morphology Comment D-Dimer, Quantitative 0.6 Sodium Potassium Chloride Carbon Dioxide Anion Gap BUN Creatinine GFR Calculation BUN/Creatinine Ratio Glucose POC Glucose Hemoglobin A1c 11.2 H Calculated Osmolality Calcium Magnesium Total Creatine Kinase 102 CK-MB (CK-2) 1.8 Troponin I 0.031 Triglycerides Cholesterol LDL Cholesterol VLDL Cholesterol HDL Cholesterol Heart Disease Risk Ratio Free T4 TSH 3rd Generation Urine Color Urine Appearance Urine pH Ur Specific Carver Urine Protein Urine Glucose (UA) Urine Ketones Urine Blood Urine Nitrate Urine Bilirubin Urine Urobilinogen Urine Leukocytes Urine RBC Urine WBC Urine Bacteria Hyaline Casts Urine Mucus Ur Culture Indicated? 03/30/17 03/30/17 03/30/17 10:37 10:37 10:37 WBC RBC Hgb Hct MCV MCH MCHC RDW Plt Count MPV Neut % (Auto) Lymph % (Auto) [place] % (Auto) Eos % (Auto) Baso % (Auto) Neut # (Auto) Lymph # (Auto) [place] # (Auto) Eos # (Auto) Baso # (Auto) Total Counted Immature Gran % Nucleated RBC % Immature Gran # Segmented Neutrophils Lymphocytes Monocytes Eosinophils Nucleated RBCs # Platelet Estimate Hypochromasia Microcytosis Ovalocytes Morphology Comment D-Dimer, Quantitative Sodium Potassium Chloride Carbon Dioxide Anion Gap BUN Creatinine GFR Calculation BUN/Creatinine Ratio Glucose POC Glucose Hemoglobin A1c Calculated Osmolality Calcium Magnesium Total Creatine Kinase CK-MB (CK-2) Troponin I 0.037 Triglycerides 166 H Cholesterol 149 LDL Cholesterol 83.0 VLDL Cholesterol 33.2 HDL Cholesterol 39 L Heart Disease Risk Ratio 3.82 Free T4 1.29 TSH 3rd Generation 1.050 Urine Color Urine Appearance Urine pH Ur Specific Carver Urine Protein Urine Glucose (UA) Urine Ketones Urine Blood Urine Nitrate Urine Bilirubin Urine Urobilinogen Urine Leukocytes Urine RBC Urine WBC Urine Bacteria Hyaline Casts Urine Mucus Ur Culture Indicated? 03/30/17 03/30/17 03/30/17 12:07 13:19 16:12 WBC RBC Hgb Hct MCV MCH MCHC RDW Plt Count MPV Neut % (Auto) Lymph % (Auto) [place] % (Auto) Eos % (Auto) Baso % (Auto) Neut # (Auto) Lymph # (Auto) [place] # (Auto) Eos # (Auto) Baso # (Auto) Total Counted Immature Gran % Nucleated RBC % Immature Gran # Segmented Neutrophils Lymphocytes Monocytes Eosinophils Nucleated RBCs # Platelet Estimate Hypochromasia Microcytosis Ovalocytes Morphology Comment D-Dimer, Quantitative Sodium Potassium Chloride Carbon Dioxide Anion Gap BUN Creatinine GFR Calculation BUN/Creatinine Ratio Glucose POC Glucose 259 H Hemoglobin A1c Calculated Osmolality Calcium Magnesium Total Creatine Kinase CK-MB (CK-2) Troponin I 0.043 0.046 H Triglycerides Cholesterol LDL Cholesterol VLDL Cholesterol HDL Cholesterol Heart Disease Risk Ratio Free T4 TSH 3rd Generation Urine Color Urine Appearance Urine pH Ur Specific Carver Urine Protein Urine Glucose (UA) Urine Ketones Urine Blood Urine Nitrate Urine Bilirubin Urine Urobilinogen Urine Leukocytes Urine RBC Urine WBC Urine Bacteria Hyaline Casts Urine Mucus Ur Culture Indicated? 03/30/17 16:12 WBC RBC Hgb Hct MCV MCH MCHC RDW Plt Count MPV Neut % (Auto) Lymph % (Auto) [place] % (Auto) Eos % (Auto) Baso % (Auto) Neut # (Auto) Lymph # (Auto) [place] # (Auto) Eos # (Auto) Baso # (Auto) Total Counted Immature Gran % Nucleated RBC % Immature Gran # Segmented Neutrophils Lymphocytes Monocytes Eosinophils Nucleated RBCs # Platelet Estimate Hypochromasia Microcytosis Ovalocytes Morphology Comment D-Dimer, Quantitative Sodium Potassium Chloride Carbon Dioxide Anion Gap BUN Creatinine GFR Calculation BUN/Creatinine Ratio Glucose POC Glucose 253 H Hemoglobin A1c Calculated Osmolality Calcium Magnesium Total Creatine Kinase CK-MB (CK-2) Troponin I Triglycerides Cholesterol LDL Cholesterol VLDL Cholesterol HDL Cholesterol Heart Disease Risk Ratio Free T4 TSH 3rd Generation Urine Color Urine Appearance Urine pH Ur Specific Carver Urine Protein Urine Glucose (UA) Urine Ketones Urine Blood Urine Nitrate Urine Bilirubin Urine Urobilinogen Urine Leukocytes Urine RBC Urine WBC Urine Bacteria Hyaline Casts Urine Mucus Ur Culture Indicated?
[2017-03-30] MEDS: CARVEDILOL 3.125 MG TABLET PO SCH ×2 (17:16→21:50)
[2017-03-30] MEDS: amLODIPine 5 MG TABLET PO SCH ×2 (17:16→21:51)
[2017-03-30 20:22] LABS: Barbiturates Screen,Urine Negative (Negative); Benzodiazepines Screen,Urine Negative (Negative); Cannabinoid Screen,Urine Negative (Negative); Opiate Screen,Urine Negative (Negative); Phencyclidine Screen,Urine Negative (Negative)
[2017-03-30] MEDS: DIPYRIDAMOLE/ASPIRIN 200-25 MG CAPSULE PO SCH (21:50)
[2017-03-30] MEDS ORDERED: ALUMINUM/MAGNES/SIMETH MAX STR 30 ML UDCUP PO PRN (22:03)
[2017-03-30] MEDS: FAMOTIDINE 20 MG TABLET PO SCH (22:40)
[2017-03-31 05:06] LABS: Basophils # 0.1 10*3/uL (0.0-0.2); Basophils % 0.5 % (0.0-0.8); Eosinophils # 0.1 10*3/uL (0.0-0.87); Eosinophils % 0.6 % (0.00-10.9); Hematocrit 42.2 VOL% (42.0-52.0); Hemoglobin 14.3 GM/DL (14.0-18.0); Immature Granulocytes % 0.3 %; Immature Granulocytes Absolute 0.04 #; Lymphocytes # 2.5 10*3/uL (1.4-4.0); Lymphocytes % 19.2 % (21.2-54.2); Mean Corpuscular HGB Conc 33.9 GM/DL (32-36); Mean Corpuscular Hemoglobin 27 PG (27-34); Mean Corpuscular Volume 80.4 FL (87-102); Mean Platelet Volume 12.4 FL (9.6-12.0); Monocytes # 0.9 10*3/uL (0.11-0.8); Neutrophils # 9.3 10*3/uL (1.4-7.4); Neutrophils % 72.4 % (38.7-73.9); Platelet Count 232 T/CUMM (130-400); Red Blood Count 5.25 MC/CUMM (3.8-5.5); Red Cell Distribution Width 13.7 % (9.3-17.3); White Blood Count 12.8 T/CUMM (4-12)
[2017-03-31 05:33] LABS: Calcium 8.8 MG/DL (8.5-10.1); Osmolality,Calculated 286.3 MOS/KG (273-304); Potassium 3.7 MMOL/L (3.5-5.1)
[2017-03-31] MEDS: amLODIPine 5 MG TABLET PO SCH (08:58)
[2017-03-31] MEDS: INSULIN LISPRO 100 UNIT/ML SUBCUT SCH ×4 (08:58→20:29)
[2017-03-31] MEDS: CARVEDILOL 3.125 MG TABLET PO SCH (08:58)
[2017-03-31] MEDS: DIPYRIDAMOLE/ASPIRIN 200-25 MG CAPSULE PO SCH ×2 (08:58→20:28)
[2017-03-31] MEDS ORDERED: ASPIRIN EC 81 MG TABLET PO SCH (09:00)
[2017-03-31] MEDS ORDERED: MAGNESIUM HYDROXIDE SUSP 30 ML UDCUP PO PRN ×2 (11:32→11:33)
[2017-03-31] MEDS ORDERED: DOCUSATE SODIUM 100 MG CAPSULE PO PRN (11:32)
[2017-03-31] MEDS: ACETAMINOPHEN 325 MG TABLET PO PRN (11:33)
[2017-03-31] MEDS: ENOXAPARIN 40 MG/0.4 ML SYRINGE SUBCUT SCH (11:33)
--- NOTE | 2017-03-31 11:37 | Cardiology Progress Note ---
Assessment and Plan (1) Sleep apnea Status: Acute Assessment and plan: 1. 56-year-old BMI 40 1 PM who presented with severe hypertension with BP systolic in the 220s and CVA with right-sided weakness with much improved blood pressure (upper 140s-180 systolic now), with resolved atypical chest pain and negative troponins. 2. Frontal headache this morning; will give Lorcet 1 and decrease Norvasc to 5 mg daily in the unlikely event that it is causing this. 3. Add low-dose lisinopril 5 mg twice daily for blood pressure control 4. Constipation reportedly has not had a BM in 4-5 days; increase Colace to twice daily and add milk of magnesia 5. neurology service has placed him on Aggrenox Current Visit: No (2) Recent cerebrovascular accident (CVA) Status: Acute Current Visit: Yes (3) Severe hypertension Status: Chronic Current Visit: Yes (4) Chest pain Status: Acute Current Visit: Yes (5) Obesity Status: Chronic Current Visit: Yes Cardiology - PN: Subj Interval history: Mr. Sparks is sleeping soundly when I came in but said he had a frontal headache this morning which was bothering him significantly. He has not had any chest pain shortness of breath or other complaints. He is concerned about his arm although he has had more strength in it that he did yesterday. He has not had a bowel movement since Sunday. Exam (Progress Note) - Constitutional Vitals: Period Temp Pulse Resp BP Sys/Mike Pulse Ox Last 24 Hr 96.6 F-98.3 F 75-96 16-20 144-217/78-109 97-100 General appearance: mild distress, over weight - Head Head exam: Present: normal inspection, normocephalic, atraumatic - ENT ENT exam: Present: normal exam - Respiratory Respiratory exam: Present: clear to auscultation bilaterally. Absent: rhonchi, stridor - Cardiovascular Cardiovascular exam: Present: regular rate and rhythm. Absent: diastolic murmur , rubs - GI/Abdominal GI/Abdominal exam: Present: soft. Absent: tenderness - Extremities Exam Extremities exam: Absent: edema - Neurological Exam Neurological exam: Present: alert, oriented X3 - Psychiatric Psychiatric exam: Present: anxious Result/EKG - Labs CBC & BMP: 03/31/17 04:24 03/31/17 04:24 Labs: Laboratory Results - last 24 hr 03/30/17 03/30/17 03/30/17 05:06 12:07 13:19 WBC RBC Hgb Hct MCV MCH MCHC RDW Plt Count MPV Neut % (Auto) Lymph % (Auto) [place] % (Auto) Eos % (Auto) Baso % (Auto) Neut # (Auto) Lymph # (Auto) [place] # (Auto) Eos # (Auto) Baso # (Auto) Immature Gran % Nucleated RBC % Immature Gran # Nucleated RBCs # Sodium Potassium Chloride Carbon Dioxide Anion Gap BUN Creatinine GFR Calculation BUN/Creatinine Ratio Glucose POC Glucose 259 H Calculated Osmolality Calcium Troponin I 0.043 B-Natriuretic Peptide Urine Opiates Screen Negative Ur Barbiturates Screen Negative Ur Phencyclidine Scrn Negative U Amphetamine/Methamph Negative U Benzodiazepines Scrn Negative U Cocaine Metab Screen Negative U Cannabinoids Screen Negative 03/30/17 03/30/17 03/30/17 16:10 16:12 16:12 WBC RBC Hgb Hct MCV MCH MCHC RDW Plt Count MPV Neut % (Auto) Lymph % (Auto) [place] % (Auto) Eos % (Auto) Baso % (Auto) Neut # (Auto) Lymph # (Auto) [place] # (Auto) Eos # (Auto) Baso # (Auto) Immature Gran % Nucleated RBC % Immature Gran # Nucleated RBCs # Sodium Potassium Chloride Carbon Dioxide Anion Gap BUN Creatinine GFR Calculation BUN/Creatinine Ratio Glucose POC Glucose 253 H Calculated Osmolality Calcium Troponin I 0.046 H B-Natriuretic Peptide 166 H Urine Opiates Screen Ur Barbiturates Screen Ur Phencyclidine Scrn U Amphetamine/Methamph U Benzodiazepines Scrn U Cocaine Metab Screen U Cannabinoids Screen 03/30/17 03/31/17 03/31/17 20:21 04:24 04:24 WBC 12.8 H RBC 5.25 Hgb 14.3 Hct 42.2 MCV 80.4 L MCH 27 MCHC 33.9 RDW 13.7 Plt Count 232 D MPV 12.4 H Neut % (Auto) 72.4 Lymph % (Auto) 19.2 L [place] % (Auto) 7.0 Eos % (Auto) 0.6 Baso % (Auto) 0.5 Neut # (Auto) 9.3 H Lymph # (Auto) 2.5 [place] # (Auto) 0.9 H Eos # (Auto) 0.1 Baso # (Auto) 0.1 Immature Gran % 0.3 Nucleated RBC % 0.0 Immature Gran # 0.04 Nucleated RBCs # 0.00 Sodium 141 Potassium 3.7 Chloride 105 Carbon Dioxide 25 Anion Gap 14.7 BUN 9 Creatinine 1.50 H GFR Calculation 81 BUN/Creatinine Ratio 6.00 Glucose 225 H POC Glucose 194 H Calculated Osmolality 286.3 Calcium 8.8 Troponin I B-Natriuretic Peptide Urine Opiates Screen Ur Barbiturates Screen Ur Phencyclidine Scrn U Amphetamine/Methamph U Benzodiazepines Scrn U Cocaine Metab Screen U Cannabinoids Screen 03/31/17 03/31/17 07:18 11:04 WBC RBC Hgb Hct MCV MCH MCHC RDW Plt Count MPV Neut % (Auto) Lymph % (Auto) [place] % (Auto) Eos % (Auto) Baso % (Auto) Neut # (Auto) Lymph # (Auto) [place] # (Auto) Eos # (Auto) Baso # (Auto) Immature Gran % Nucleated RBC % Immature Gran # Nucleated RBCs # Sodium Potassium Chloride Carbon Dioxide Anion Gap BUN Creatinine GFR Calculation BUN/Creatinine Ratio Glucose POC Glucose 217 H 244 H Calculated Osmolality Calcium Troponin I B-Natriuretic Peptide Urine Opiates Screen Ur Barbiturates Screen Ur Phencyclidine Scrn U Amphetamine/Methamph U Benzodiazepines Scrn U Cocaine Metab Screen U Cannabinoids Screen Quality Measures - Stroke Presenting Symptoms: Right hemiparesis Symptom Onset Unknown: Yes
--- NOTE | 2017-03-31 14:31 | Hospitalist Progress Note ---
Assessment and Plan (1) Right sided weakness Status: Acute Assessment and plan: due to Acute left subcortical basal ganglia infarct. MRI brain showed a small focus of restricted diffusion in the left basal ganglia , likely subacute infarct. Carotid doppler showed No convincing sonographic evidence of significant (50% or greater) narrowing of either cervical internal carotid artery. Indirect NASCET criteria utilized. Echo showed a normal left ventricular cavity size. Mild - moderate concentric left ventricular hypertrophy with diastolic dysfunction. Left ventricular ejection fraction is estimated at 60- 65 %. Plan Continue Aggrenox,statins neuro's recommendations Continue PT/OT/ST For rehab disposition Current Visit: Yes (2) Type 1 diabetes mellitus Status: Acute Assessment and plan: A1c- 11.2 Plan continue accuchecks start lantus 10units qhs, follow response. Current Visit: No (3) Severe hypertension Status: Chronic Assessment and plan: increase Coreg to 6.25mg bid, follow response Current Visit: Yes (4) Dyslipidemia Status: Acute Assessment and plan: continue with statins Current Visit: Yes (5) Obstructive sleep apnea Status: Chronic Assessment and plan: will need outpt follow up Current Visit: Yes (6) Obesity Status: Chronic Assessment and plan: Dietitian consult Current Visit: Yes (7) Renal insufficiency Status: Chronic Assessment and plan: improving, bmp in am. Current Visit: Yes Hospitalist: Subjective Interval history: Patient seen.MRI showed a small focus of restricted diffusion in the left basal ganglia, likely subacute infarct.His is slowly moving his right upper extremity and his speech is still abnormal. Speech has recommended pureed diet.Neurology is following. Exam - Constitutional Vitals: Period Temp Pulse Resp BP Sys/Mike Pulse Ox Last 24 Hr 96.6 F-98.3 F 75-96 16-20 144-217/78-109 97-100 General appearance: no acute distress - Head Head exam: Present: normal inspection - Neck Neck exam: Present: normal inspection - Respiratory Respiratory exam: Present: clear to auscultation bilaterally - Cardiovascular Cardiovascular exam: Present: regular rate and rhythm - GI/Abdominal GI/Abdominal exam: Present: normal bowel sounds - Extremities Exam Extremities exam: Present: normal inspection - Neurological Exam Neurological exam: Present: alert, oriented X3, other (right sided weakness UE> LE) Results - Labs CBC & BMP: 03/31/17 04:24 07/22/17 04:24 Lab Results: I have reviewed the past 24 hour labs Quality Measures - Stroke Presenting Symptoms: Right hemiparesis Symptom Onset Unknown: Yes
--- NOTE | 2017-03-31 15:46 | Neurology Progress Note ---
Neurology - PN : Subjective Interval history: Patient seems to be doing a little better. He is moving his right side a little better. MRI of the brain reveals left basal ganglia acute infarct. Exam (Progress Note) - Constitutional Vitals: Period Temp Pulse Resp BP Sys/Mike Pulse Ox Last 24 Hr 96.6 F-98.3 F 75-96 16-20 144-217/78-109 97-100 Exam: GENERAL: Patient is in no acute distress. NECK: Neck is supple. There is no JVD. No carotid bruits present. No thyroid masses. CVS: First and second heart sounds are normal. There is no S3 present. Regular rate and rhythm. RESPIRATORY: Lungs are clear to auscultation without any rales or rhonchi. ABDOMEN: Soft and non-tender. Bowel sounds are present. There is no hepatosplenomegaly. EXT: There is no palpable edema. Peripheral pulses are present. Skin: No rashes Central Nervous system: General: Alert, awake and Oriented x 3 Speech: Fluent but dysarthric Comprehension: Intact and normal Facial expressions: Normal Cranial Nerves: CN1/Olfactory: Normal CN II/ Optic: Normal, Visual Shin unreliable CN III, and : RUTHIE & EOMI CN V: Normal & intact CN VII: face is symmetric CNVIII: Normal CN XI/X/XI/XII: Intact and Normal Motor: Bulk and Tone is normal. Strength in the right 2/5 Strength in the left 4/5 Sensory: Decreased for all the modalities of PP, LT and temp sense in the stockings to Reflexes: 2-3+ and symmetrical Cerebellar function: Cannot be assessed Toes: Equivocal Gait: Not tested Results - Labs CBC & BMP: 03/31/17 04:24 03/31/17 04:24 Assessment and Plan (1) Right sided weakness Status: Acute Assessment and plan: Acute left subcortical basal ganglia infarct. Continue Aggrenox 1 twice a day continue Lipitor. Consult TMR Current Visit: Yes Quality Measures - Stroke Presenting Symptoms: Right hemiparesis Symptom Onset Unknown: Yes
[2017-03-31] MEDS: CARVEDILOL 6.25 MG TABLET PO SCH (20:28)
[2017-03-31] MEDS: ATORVASTATIN 10 MG TABLET PO SCH (20:28)
[2017-03-31] MEDS: FAMOTIDINE 20 MG TABLET PO SCH (20:28)
[2017-03-31] MEDS: LISINOPRIL 5 MG TABLET PO SCH (20:33)
[2017-03-31] MEDS ORDERED: INSULIN GLARGINE 100 UNIT/ML SUBCUT SCH (21:00)
[2017-04-01] MEDS: ACETAMINOPHEN 325 MG TABLET PO PRN (01:44)
[2017-04-01 05:11] LABS: Basophils # 0.1 10*3/uL (0.0-0.2); Basophils % 0.6 % (0.0-0.8); Eosinophils # 0.1 10*3/uL (0.0-0.87); Eosinophils % 0.5 % (0.00-10.9); Hematocrit 42.7 VOL% (42.0-52.0); Hemoglobin 14.5 GM/DL (14.0-18.0); Immature Granulocytes % 0.4 %; Immature Granulocytes Absolute 0.06 #; Lymphocytes # 2.5 10*3/uL (1.4-4.0); Lymphocytes % 18.6 % (21.2-54.2); Mean Corpuscular Hemoglobin 28 PG (27-34); Mean Corpuscular Volume 81.3 FL (87-102); Mean Platelet Volume 12.7 FL (9.6-12.0); Monocytes % 7.3 % (1.7-12.7); Neutrophils # 9.8 10*3/uL (1.4-7.4); Neutrophils % 72.6 % (38.7-73.9); Platelet Count 220 T/CUMM (130-400); Red Blood Count 5.25 MC/CUMM (3.8-5.5); Red Cell Distribution Width 13.7 % (9.3-17.3); White Blood Count 13.5 T/CUMM (4-12)
[2017-04-01 05:40] LABS: Calcium 9.5 MG/DL (8.5-10.1); Osmolality,Calculated 288.3 MOS/KG (273-304)
--- NOTE | 2017-04-01 08:05 | EKG Report ---
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
[2017-04-01] MEDS: DIPYRIDAMOLE/ASPIRIN 200-25 MG CAPSULE PO SCH ×2 (08:18→21:18)
[2017-04-01] MEDS: CARVEDILOL 6.25 MG TABLET PO SCH (08:18)
[2017-04-01] MEDS: LISINOPRIL 5 MG TABLET PO SCH ×2 (08:19→21:19)
[2017-04-01] MEDS: DOCUSATE SODIUM 100 MG CAPSULE PO SCH (08:19)
[2017-04-01] MEDS: INSULIN LISPRO 100 UNIT/ML SUBCUT SCH ×4 (08:33→21:18)
[2017-04-01] MEDS ORDERED: amLODIPine 5 MG TABLET PO SCH (09:00)
--- NOTE | 2017-04-01 09:04 | Cardiology Progress Note ---
Assessment and Plan (1) Sleep apnea Status: Acute Assessment and plan: 1. 56-year-old BMI 40 1 PM who presented with severe hypertension with BP systolic in the 220s and CVA with right-sided weakness with much improved blood pressure (upper 140s-180 systolic now), with resolved atypical chest pain and negative troponins. 2. Frontal headache this morning; will give Lorcet 1 and decrease Norvasc to 5 mg daily in the unlikely event that it is causing this. 3. Add low-dose lisinopril 5 mg twice daily for blood pressure control 4. Constipation reportedly has not had a BM in 4-5 days; increase Colace to twice daily and add milk of magnesia 5. neurology service has placed him on Aggrenox April 01 update: 1. Clinically Mr. Sparks is doing much better with some increase in his right upper extremity strength and resolution of his headache status post CVA on Aggrenox 2. Severe hypertension on admission at 220 systolic now in the 160 systolic; increase Coreg to 12.5 mg twice daily; he is already on amlodipine and low-dose BOLIVAR inhibitor. 3. Greater than 70% EF noted on echocardiogram a 3+ LVH likely related to uncontrolled hypertension 4. Constipation; increase milk of magnesia 5. Sinus rhythm with very abnormal EKG likely related to his LVH; will schedule follow-up in clinic. 6. We will sign off; please reconsult cardiology if needed prior to discharge. Current Visit: No (2) Recent cerebrovascular accident (CVA) Status: Acute Current Visit: Yes (3) Severe hypertension Status: Chronic Current Visit: Yes (4) Chest pain Status: Acute Current Visit: Yes (5) Obesity Status: Chronic Current Visit: Yes Cardiology - PN: Subj Interval history: Mr. Sparks is feeling better although he still has not had a bowel movement in the last 5-6 days. It is not causing abdominal pain discomfort both concerns in bed. He is right arm strength has improved some. He no longer has a headache. Exam (Progress Note) - Constitutional Vitals: Period Temp Pulse Resp BP Sys/Mike Pulse Ox Last 24 Hr 96.7 F-98.2 F 89-95 16-18 145-165/81-100 98-99 General appearance: no acute distress, over weight - Head Head exam: Present: normal inspection, normocephalic, atraumatic - Respiratory Respiratory exam: Present: clear to auscultation bilaterally. Absent: rales, rhonchi, stridor - Cardiovascular Cardiovascular exam: Present: regular rate and rhythm. Absent: diastolic murmur , rubs - GI/Abdominal GI/Abdominal exam: Present: soft. Absent: tenderness - Extremities Exam Extremities exam: Absent: edema Result/EKG - Labs CBC & BMP: 04/01/17 04:13 04/01/17 04:13 Labs: Laboratory Results - last 24 hr 03/31/17 03/31/17 03/31/17 11:04 16:13 19:14 WBC RBC Hgb Hct MCV MCH MCHC RDW Plt Count MPV Neut % (Auto) Lymph % (Auto) [place] % (Auto) Eos % (Auto) Baso % (Auto) Neut # (Auto) Lymph # (Auto) [place] # (Auto) Eos # (Auto) Baso # (Auto) Immature Gran % Nucleated RBC % Immature Gran # Nucleated RBCs # Sodium Potassium Chloride Carbon Dioxide Anion Gap BUN Creatinine GFR Calculation BUN/Creatinine Ratio Glucose POC Glucose 244 H 293 H 297 H Calculated Osmolality Calcium 04/01/17 04/01/17 04/01/17 04:13 04:13 08:20 WBC 13.5 H RBC 5.25 Hgb 14.5 Hct 42.7 MCV 81.3 L MCH 28 MCHC 34.0 RDW 13.7 Plt Count 220 MPV 12.7 H Neut % (Auto) 72.6 Lymph % (Auto) 18.6 L [place] % (Auto) 7.3 Eos % (Auto) 0.5 Baso % (Auto) 0.6 Neut # (Auto) 9.8 H Lymph # (Auto) 2.5 [place] # (Auto) 1.0 H Eos # (Auto) 0.1 Baso # (Auto) 0.1 Immature Gran % 0.4 Nucleated RBC % 0.0 Immature Gran # 0.06 Nucleated RBCs # 0.00 Sodium 141 Potassium 4.0 Chloride 104 Carbon Dioxide 28 Anion Gap 13.0 BUN 14 Creatinine 1.80 H GFR Calculation 65 BUN/Creatinine Ratio 7.00 Glucose 232 H POC Glucose 243 H Calculated Osmolality 288.3 Calcium 9.5 Quality Measures - Stroke Presenting Symptoms: Right hemiparesis Symptom Onset Unknown: Yes
[2017-04-01] MEDS ORDERED: MAGNESIUM HYDROXIDE SUSP 30 ML UDCUP PO ONE (09:08)
[2017-04-01] MEDS ORDERED: MAGNESIUM HYDROXIDE SUSP 30 ML UDCUP PO PRN (09:08)
[2017-04-01] MEDS: ENOXAPARIN 40 MG/0.4 ML SYRINGE SUBCUT SCH (10:12)
[2017-04-01] MEDS: CARVEDILOL 12.5 MG TABLET PO SCH ×2 (10:12→21:18)
--- NOTE | 2017-04-01 14:27 | Neurology Progress Note ---
Neurology - PN : Subjective Interval history: Mr. Simental seems to be doing okay. He is improving slowly. Participating in therapy. Exam (Progress Note) - Constitutional Vitals: Period Temp Pulse Resp BP Sys/Mike Pulse Ox Last 24 Hr 97.3 F-98.5 F 89-95 16-18 137-165/81-100 98-100 Exam: GENERAL: Patient is in no acute distress. NECK: Neck is supple. There is no JVD. No carotid bruits present. No thyroid masses. CVS: First and second heart sounds are normal. There is no S3 present. Regular rate and rhythm. RESPIRATORY: Lungs are clear to auscultation without any rales or rhonchi. ABDOMEN: Soft and non-tender. Bowel sounds are present. There is no hepatosplenomegaly. EXT: There is no palpable edema. Peripheral pulses are present. Skin: No rashes Central Nervous system: General: Alert, awake and Oriented x 3 Speech: Fluent but dysarthric Comprehension: Intact and normal Facial expressions: Normal Cranial Nerves: CN1/Olfactory: Normal CN II/ Optic: Normal, Visual Shin unreliable CN III, and : RUTHIE & EOMI CN V: Normal & intact CN VII: face is symmetric CNVIII: Normal CN XI/X/XI/XII: Intact and Normal Motor: Bulk and Tone is normal. Strength in the right 2/5 Strength in the left 4/5 Sensory: Decreased for all the modalities of PP, LT and temp sense in the stockings to Reflexes: 2-3+ and symmetrical Cerebellar function: Cannot be assessed Toes: Equivocal Gait: Not tested Results - Labs CBC & BMP: 04/01/17 04:13 04/01/17 04:13 Assessment and Plan (1) Right sided weakness Status: Acute Assessment and plan: Acute left subcortical basal ganglia infarct. Continue Aggrenox 1 twice a day continue Lipitor. For [facility] rehab placement Current Visit: Yes Quality Measures - Stroke Presenting Symptoms: Right hemiparesis Symptom Onset Unknown: Yes
--- NOTE | 2017-04-01 15:02 | Hospitalist Progress Note ---
Assessment and Plan (1) Right sided weakness Status: Acute Assessment and plan: due to Acute left subcortical basal ganglia infarct. MRI brain showed a small focus of restricted diffusion in the left basal ganglia , likely subacute infarct. Carotid doppler showed No convincing sonographic evidence of significant (50% or greater) narrowing of either cervical internal carotid artery. Indirect NASCET criteria utilized. Echo showed a normal left ventricular cavity size. Mild - moderate concentric left ventricular hypertrophy with diastolic dysfunction. Left ventricular ejection fraction is estimated at 60- 65 %. Plan Continue Aggrenox,statins neuro's recommendations Continue PT/OT/ST For rehab disposition Current Visit: Yes (2) Type 1 diabetes mellitus Status: Acute Assessment and plan: A1c- 11.2 Plan continue accuchecks increase lantus to 15units qhs, follow response. Current Visit: No (3) Severe hypertension Status: Chronic Assessment and plan: Coreg was increased to 12.5mg bid, follow response Current Visit: Yes (4) Dyslipidemia Status: Acute Assessment and plan: continue with statins Current Visit: Yes (5) Obstructive sleep apnea Status: Chronic Assessment and plan: Patient may have had periods of apnea today. Will start CPAP and will need outpatient follow up. Current Visit: Yes (6) Obesity Status: Chronic Assessment and plan: Dietitian consult Current Visit: Yes (7) Renal insufficiency Status: Chronic Assessment and plan: follow bmp in am. Current Visit: Yes (8) Unresponsive episode Status: Acute Assessment and plan: While patient was trying to get on the commode, he became very weak, diaphoretic, called the Nurse and he passed out. A rapid response was called. He was helped back on the bed. He became more alert.His vitals were stable throughout the episode and his blood sugar was ok. Differentials include vaso vagal episodes to r/o repeat stroke, apneic attack, acute coronary syndrome.,PE Plan Transfer to the unit CBC, CMP, ammonia level Follow CT head Serial Cardiac enzymes Will start CPAP -Doppler of his legs D-dimer- not a candidate for CT chest with PTE protocol due to RF Current Visit: Yes Hospitalist: Subjective Interval history: Patient is a 56yr old who was admitted for a right sided weakness, MRI showed a small focus of restricted diffusion in the left basal ganglia, likely subacute infarct. Neuro is following. Patient was seen this am,he was sitting up on a chair and was in a good spirit. He voiced that he was feeling better.Later on, while he was trying to get on the commode, he became very weak, diaphoretic, called the Nurse and he passed out. A rapid response was called. He was helped back on the bed. He became more alert.His vitals were stable throughout the episode and his blood sugar was ok. He was then taken for a CT scan. Exam - Constitutional Vitals: Period Temp Pulse Resp BP Sys/Mike Pulse Ox Last 24 Hr 97.3 F-98.5 F 89-95 16-18 137-165/81-100 98-100 General appearance: no acute distress - Head Head exam: Present: normal inspection - Respiratory Respiratory exam: Present: clear to auscultation bilaterally - Cardiovascular Cardiovascular exam: Present: regular rate and rhythm - GI/Abdominal GI/Abdominal exam: Present: normal bowel sounds - Extremities Exam Extremities exam: Present: normal inspection - Neurological Exam Neurological exam: Present: alert, oriented X3 Results - Labs CBC & BMP: 04/01/17 15:35 04/01/17 15:41 Lab Results: I have reviewed the past 24 hour labs Quality Measures - Stroke Presenting Symptoms: Right hemiparesis Symptom Onset Unknown: Yes
--- NOTE | 2017-04-01 15:15 | CT Report ---
CT brain Indication: Altered mental status Comparison: 30 March 2017 Technique: Axial CT imaging of the brain is performed without contrast with 3 mm increments. Findings: No evidence of hemorrhage, mass mass effect midline shift or acute infarct seen. There is moderate diffuse cerebral atrophy. There are areas of decreased density seen within the white matter. Otherwise the brain parenchyma attenuation and differentiation appears within normal limits. The ventricles and cisterns are normal in caliber. No cranial or skull base abnormality is identified. Impression: No evidence of acute process or interval change. This CT exam was performed using one or more the following dose reduction techniques: Automated exposure control, adjustment of the MA and/or KV according to patient size, or use of iterative reconstruction technique. PROCEDURE INTERPRETED AT [facility] DEPARTMENT OF RADIOLOGY Final Report Signed by: Dr. Mahendra Chavez
[2017-04-01 15:47] LABS: Basophils # 0.1 10*3/uL (0.0-0.2); Basophils % 0.5 % (0.0-0.8); Eosinophils # 0.1 10*3/uL (0.0-0.87); Eosinophils % 0.4 % (0.00-10.9); Hematocrit 44.2 VOL% (42.0-52.0); Hemoglobin 14.7 GM/DL (14.0-18.0); Immature Granulocytes % 0.6 %; Immature Granulocytes Absolute 0.09 #; Lymphocytes # 2.3 10*3/uL (1.4-4.0); Lymphocytes % 14.6 % (21.2-54.2); Mean Corpuscular HGB Conc 33.3 GM/DL (32-36); Mean Corpuscular Hemoglobin 27 PG (27-34); Mean Corpuscular Volume 82.5 FL (87-102); Mean Platelet Volume 12.7 FL (9.6-12.0); Monocytes # 1.2 10*3/uL (0.11-0.8); Monocytes % 7.5 % (1.7-12.7); Neutrophils # 11.8 10*3/uL (1.4-7.4); Neutrophils % 76.4 % (38.7-73.9); Platelet Count 194 T/CUMM (130-400); Red Blood Count 5.36 MC/CUMM (3.8-5.5); Red Cell Distribution Width 13.8 % (9.3-17.3); White Blood Count 15.5 T/CUMM (4-12)
[2017-04-01 16:09] LABS: Ammonia 33 UMOL/L (11-32)
--- NOTE | 2017-04-01 16:12 | Ultrasound Report ---
Venous Doppler ultrasound bilateral lower extremity Indication: Pain Comparison: None available Findings: No evidence of echogenic, noncompressible thrombus seen in the visualized veins of the extremities. Color Doppler venous waveform pattern is within normal limits. Impression: No evidence of deep venous thrombosis. Ultrasound images stored and captured. PROCEDURE INTERPRETED AT [facility] DEPARTMENT OF RADIOLOGY Final Report Signed by: Dr. Mahendra Chavez
[2017-04-01 16:17] LABS: Alanine Aminotransferase 13 U/L (16-61); Albumin 3.2 G/DL (3.4-5.0); Alkaline Phosphatase 91 U/L (45-117); Aspartate Amino Transferase 11 U/L (0-37); Bilirubin,Total < 0.39 MG/DL (0.2-1.0); Blood Urea Nitrogen 17 MG/DL (7-18); Calcium 9.5 MG/DL (8.5-10.1); Glucose 267 MG/DL (74-106); Osmolality,Calculated 289.4 MOS/KG (273-304); Potassium 4.2 MMOL/L (3.5-5.1); Sodium 140 MMOL/L (136-145)
[2017-04-01 16:19] LABS: Blood Urea Nitrogen 17 MG/DL (7-18); Calcium 9.5 MG/DL (8.5-10.1); Glucose 263 MG/DL (74-106); Magnesium 3.2 MG/DL (1.8-2.4); Osmolality,Calculated 289.4 MOS/KG (273-304); Potassium 4.4 MMOL/L (3.5-5.1); Sodium 140 MMOL/L (136-145); Troponin I Only 0.054 NG/ML (0.00-0.045)
[2017-04-01 17:15] LABS: ABG Base Excess 2.7 MMOL/L (-2.5-2.5); ABG HCO3 26.8 MMOL/L (20-26); ABG Oxygen Saturation 96.6 % (95-100); ABG PCO2 41.6 MM HG (35-48); ABG PH 7.426 (7.35-7.45); ABG PO2 83.3 MM HG (80-95); ABG TCO2 23.4 MMOL/L (23-27); Allen Test Positive
[2017-04-01] MEDS: FAMOTIDINE 20 MG TABLET PO SCH (21:19)
[2017-04-01] MEDS: ATORVASTATIN 10 MG TABLET PO SCH (21:19)
[2017-04-01] MEDS: INSULIN GLARGINE 100 UNIT/ML SUBCUT SCH (21:19)
[2017-04-02 05:52] LABS: Basophils # 0.1 10*3/uL (0.0-0.2); Basophils % 0.7 % (0.0-0.8); Eosinophils # 0.1 10*3/uL (0.0-0.87); Eosinophils % 0.5 % (0.00-10.9); Hematocrit 40.7 VOL% (42.0-52.0); Hemoglobin 13.8 GM/DL (14.0-18.0); Immature Granulocytes % 0.4 %; Immature Granulocytes Absolute 0.05 #; Lymphocytes # 2.5 10*3/uL (1.4-4.0); Lymphocytes % 19.1 % (21.2-54.2); Mean Corpuscular HGB Conc 33.9 GM/DL (32-36); Mean Corpuscular Hemoglobin 28 PG (27-34); Mean Corpuscular Volume 81.7 FL (87-102); Mean Platelet Volume 12.5 FL (9.6-12.0); Monocytes % 7.5 % (1.7-12.7); Neutrophils # 9.4 10*3/uL (1.4-7.4); Neutrophils % 71.8 % (38.7-73.9); Platelet Count 213 T/CUMM (130-400); Red Blood Count 4.98 MC/CUMM (3.8-5.5); Red Cell Distribution Width 13.9 % (9.3-17.3); White Blood Count 13.1 T/CUMM (4-12)
[2017-04-02 06:27] LABS: Osmolality,Calculated 282.8 MOS/KG (273-304); Potassium 4.2 MMOL/L (3.5-5.1)
--- NOTE | 2017-04-02 06:36 | EKG Report ---
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
--- NOTE | 2017-04-02 08:37 | Cardiology Progress Note ---
Cardiology - PN: Subj Interval history: Cardiology note 56-year-old man admitted with hypertensive urgency and stroke. Has right arm and leg paresis and speech is garbled No pain. Blood pressure 175/90 Telemetry shows sinus rhythm in the 80s O2 sat 100 on 2 L cannula Regular rhythm no murmur or gallop Decreased breath sounds but clear Abdomen soft benign No leg edema Recent echo showed ejection fraction of 60-65% with moderate LVH, normal valves , and diastolic dysfunction Lab data today White count 13.1 hemoglobin 13.8 hematocrit 40.7 Sodium 137 potassium 4.2 chloride 102 CO2 27 BUN 21 creatinine 2.30. Baseline creatinine 1.90 on admission Hemoglobin A1c 11.2 Impression Hypertensive urgency with stroke. Echo shows ejection fraction 60-65 with 3+ LVH and normal valves and diastolic dysfunction Obstructive sleep apnea on CPAP Obesity Diabetes with poor control Mild chronic renal failure followed by Dr. Carrero Remote tobacco abuse-quit 2011 No history of angina or heart failure Plan DC lisinopril Restart clonidine 0.1 mg twice daily Increase amlodipine 10 mg daily BMP in a.m. Exam (Progress Note) - Constitutional Vitals: Period Temp Pulse Resp BP Sys/Mike Pulse Ox Last 24 Hr 98 F-98.8 F 74-105 14-22 111-184/7-115 97-100 Result/EKG - Labs CBC & BMP: 04/02/17 05:18 04/02/17 05:18 Labs: Laboratory Results - last 24 hr 04/01/17 04/01/17 04/01/17 08:20 11:24 14:35 WBC RBC Hgb Hct MCV MCH MCHC RDW Plt Count MPV Neut % (Auto) Lymph % (Auto) [place] % (Auto) Eos % (Auto) Baso % (Auto) Neut # (Auto) Lymph # (Auto) [place] # (Auto) Eos # (Auto) Baso # (Auto) Immature Gran % Nucleated RBC % Immature Gran # Nucleated RBCs # D-Dimer, Quantitative ABG pH ABG pCO2 ABG pO2 ABG HCO3 ABG Total CO2 ABG O2 Saturation ABG Base Excess FiO2 Sodium Potassium Chloride Carbon Dioxide Anion Gap BUN Creatinine GFR Calculation BUN/Creatinine Ratio Glucose POC Glucose 243 H 266 H 277 H Calculated Osmolality Calcium Magnesium Total Bilirubin AST ALT Alkaline Phosphatase Ammonia Total Creatine Kinase CK-MB (CK-2) Troponin I Total Protein Albumin Globulin Albumin/Globulin Ratio 04/01/17 04/01/17 04/01/17 15:35 15:35 15:41 WBC 15.5 H RBC 5.36 Hgb 14.7 Hct 44.2 MCV 82.5 L MCH 27 MCHC 33.3 RDW 13.8 Plt Count 194 MPV 12.7 H Neut % (Auto) 76.4 H Lymph % (Auto) 14.6 L [place] % (Auto) 7.5 Eos % (Auto) 0.4 Baso % (Auto) 0.5 Neut # (Auto) 11.8 H Lymph # (Auto) 2.3 [place] # (Auto) 1.2 H Eos # (Auto) 0.1 Baso # (Auto) 0.1 Immature Gran % 0.6 Nucleated RBC % 0.0 Immature Gran # 0.09 Nucleated RBCs # 0.00 D-Dimer, Quantitative ABG pH ABG pCO2 ABG pO2 ABG HCO3 ABG Total CO2 ABG O2 Saturation ABG Base Excess FiO2 Sodium 140 140 Potassium 4.4 4.2 Chloride 104 104 Carbon Dioxide 28 29 Anion Gap 12.4 11.2 BUN 17 17 Creatinine 2.20 H 2.20 H GFR Calculation 51 51 BUN/Creatinine Ratio 7.00 7.00 Glucose 263 H 267 H POC Glucose Calculated Osmolality 289.4 289.4 Calcium 9.5 9.5 Magnesium 3.2 H Total Bilirubin < 0.39 AST 11 ALT 13 L Alkaline Phosphatase 91 Ammonia 33 H Total Creatine Kinase 119 CK-MB (CK-2) 3.2 Troponin I 0.054 H Total Protein 7.0 Albumin 3.2 L Globulin 3.8 H Albumin/Globulin Ratio 0.8 L 04/01/17 04/01/17 04/01/17 16:07 16:10 16:46 WBC RBC Hgb Hct MCV MCH MCHC RDW Plt Count MPV Neut % (Auto) Lymph % (Auto) [place] % (Auto) Eos % (Auto) Baso % (Auto) Neut # (Auto) Lymph # (Auto) [place] # (Auto) Eos # (Auto) Baso # (Auto) Immature Gran % Nucleated RBC % Immature Gran # Nucleated RBCs # D-Dimer, Quantitative 0.6 ABG pH 7.426 ABG pCO2 41.6 ABG pO2 83.3 ABG HCO3 26.8 H ABG Total CO2 23.4 ABG O2 Saturation 96.6 ABG Base Excess 2.7 H FiO2 28.00 Sodium Potassium Chloride Carbon Dioxide Anion Gap BUN Creatinine GFR Calculation BUN/Creatinine Ratio Glucose POC Glucose 300 H Calculated Osmolality Calcium Magnesium Total Bilirubin AST ALT Alkaline Phosphatase Ammonia Total Creatine Kinase CK-MB (CK-2) Troponin I Total Protein Albumin Globulin Albumin/Globulin Ratio 04/01/17 04/01/17 04/02/17 20:23 20:44 05:18 WBC 13.1 H RBC 4.98 Hgb 13.8 L Hct 40.7 L MCV 81.7 L MCH 28 MCHC 33.9 RDW 13.9 Plt Count 213 MPV 12.5 H Neut % (Auto) 71.8 Lymph % (Auto) 19.1 L [place] % (Auto) 7.5 Eos % (Auto) 0.5 Baso % (Auto) 0.7 Neut # (Auto) 9.4 H Lymph # (Auto) 2.5 [place] # (Auto) 1.0 H Eos # (Auto) 0.1 Baso # (Auto) 0.1 Immature Gran % 0.4 Nucleated RBC % 0.0 Immature Gran # 0.05 Nucleated RBCs # 0.00 D-Dimer, Quantitative ABG pH ABG pCO2 ABG pO2 ABG HCO3 ABG Total CO2 ABG O2 Saturation ABG Base Excess FiO2 Sodium Potassium Chloride Carbon Dioxide Anion Gap BUN Creatinine GFR Calculation BUN/Creatinine Ratio Glucose POC Glucose 293 H Calculated Osmolality Calcium Magnesium Total Bilirubin AST ALT Alkaline Phosphatase Ammonia Total Creatine Kinase 104 CK-MB (CK-2) 3.4 Troponin I 0.080 H D Total Protein Albumin Globulin Albumin/Globulin Ratio 04/02/17 04/02/17 05:18 05:18 WBC RBC Hgb Hct MCV MCH MCHC RDW Plt Count MPV Neut % (Auto) Lymph % (Auto) [place] % (Auto) Eos % (Auto) Baso % (Auto) Neut # (Auto) Lymph # (Auto) [place] # (Auto) Eos # (Auto) Baso # (Auto) Immature Gran % Nucleated RBC % Immature Gran # Nucleated RBCs # D-Dimer, Quantitative ABG pH ABG pCO2 ABG pO2 ABG HCO3 ABG Total CO2 ABG O2 Saturation ABG Base Excess FiO2 Sodium 137 Potassium 4.2 Chloride 102 Carbon Dioxide 27 Anion Gap 12.2 BUN 21 H Creatinine 2.30 H GFR Calculation 48 BUN/Creatinine Ratio 9.00 Glucose 223 H POC Glucose Calculated Osmolality 282.8 Calcium 9.0 Magnesium Total Bilirubin AST ALT Alkaline Phosphatase Ammonia Total Creatine Kinase 93 CK-MB (CK-2) 3.2 Troponin I 0.090 H Total Protein Albumin Globulin Albumin/Globulin Ratio Quality Measures - Stroke Presenting Symptoms: Right hemiparesis Symptom Onset Unknown: Yes
[2017-04-02] MEDS ORDERED: amLODIPine 10 MG TABLET PO ONE (08:38)
[2017-04-02] MEDS: INSULIN LISPRO 100 UNIT/ML SUBCUT SCH ×4 (08:54→20:10)
[2017-04-02] MEDS: DOCUSATE SODIUM 100 MG CAPSULE PO SCH (08:55)
[2017-04-02] MEDS: CARVEDILOL 12.5 MG TABLET PO SCH ×2 (08:55→20:11)
[2017-04-02] MEDS: cloNIDine 0.1 MG TABLET PO SCH ×3 (09:04→20:11)
--- NOTE | 2017-04-02 10:19 | Hospitalist Progress Note ---
Assessment and Plan (1) Acute ischemic stroke Status: Acute Assessment and plan: Continue Aggrenox. Continue statin. Monitor blood pressure. Transfer to the floor. [facility] evaluation. Current Visit: Yes (2) Severe hypertension Status: Chronic Assessment and plan: Resume home medications. Current Visit: Yes (3) Diabetes mellitus Status: Chronic Assessment and plan: Resume oral glycemic agents and subcu insulin. Start diabetic diet with Accu- Cheks. Swallow evaluation. Current Visit: Yes Qualifiers: Diabetes mellitus type: type 2 (4) Right sided weakness Status: Acute Assessment and plan: Secondary to left basal ganglia stroke. Current Visit: Yes (5) Obesity Status: Chronic Current Visit: Yes (6) Obstructive sleep apnea Status: Chronic Current Visit: Yes (7) Dyslipidemia Status: Acute Current Visit: Yes Hospitalist: Subjective Interval history: Patient seen and examined. No acute events overnight. Case discussed with nursing staff. Labs reviewed. The patient was transferred to the CCU yesterday after having a syncopal episode. Since that time, his vital signs have been stable. Carotid ultrasound without any evidence of stenosis. Echo reviewed. No further episodes of syncope. Exam - Constitutional Vitals: Period Temp Pulse Resp BP Sys/Mike Pulse Ox Last 24 Hr 98 F-98.8 F 74-105 14-22 111-184/7-115 97-100 Exam: Constitutional System: No distress. No tremulousness. Head: Normocephalic, atraumatic. Ears, Nose and Throat System: No pain or tenderness. No epistaxis or discharge Eyes System: Pupils equal, round, and reactive. Extraocular muscles intact. Neck: Supple, without adenopathy, No jugular venous distention. Respiratory System: Chest clear to auscultation. Cardiovascular System: Heart with regular rate and rhythm. No murmur. GI System: Abdomen soft, nontender. Normo active bowel sounds present. Musculoskeletal System: limbs with no pedal edema. Full distal pulses. Neurological System: Right upper and lower extremity weakness noted. Difficulties with speech noted. Right facial droop noted. Psychiatric System: Conversation is rational Results - Labs CBC & BMP: 04/02/17 05:18 04/02/17 05:18 Lab Results: I have reviewed the past 24 hour labs Quality Measures - Stroke Presenting Symptoms: Right hemiparesis Symptom Onset Unknown: Yes
[2017-04-02] MEDS: DIPYRIDAMOLE/ASPIRIN 200-25 MG CAPSULE PO SCH ×2 (10:57→20:11)
[2017-04-02] MEDS: ENOXAPARIN 40 MG/0.4 ML SYRINGE SUBCUT SCH (11:32)
--- NOTE | 2017-04-02 15:19 | Neurology Progress Note ---
Neurology - PN : Subjective Interval history: Yesterday's event noted. While patient was trying to get on the commode, he became very weak, diaphoretic, called the Nurse and he passed out. A rapid response was called. He was helped back on the bed. He became more alert. He was transferred down to CCU. He has been doing okay however to me it looks like he is slightly more weak in the right side. I am concerned that he extended the stroke Exam (Progress Note) - Constitutional Vitals: Period Temp Pulse Resp BP Sys/Mike Pulse Ox Last 24 Hr 98.1 F-98.8 F 74-105 11-22 111-184/7-115 97-100 Exam: GENERAL: Patient is in no acute distress. NECK: Neck is supple. There is no JVD. No carotid bruits present. No thyroid masses. CVS: First and second heart sounds are normal. There is no S3 present. Regular rate and rhythm. RESPIRATORY: Lungs are clear to auscultation without any rales or rhonchi. ABDOMEN: Soft and non-tender. Bowel sounds are present. There is no hepatosplenomegaly. EXT: There is no palpable edema. Peripheral pulses are present. Skin: No rashes Central Nervous system: General: Alert, awake and Oriented x 3 Speech: Fluent but dysarthric Comprehension: Intact and normal Facial expressions: Normal Cranial Nerves: CN1/Olfactory: Normal CN II/ Optic: Normal, Visual Shin unreliable CN III, and : RUTHIE & EOMI CN V: Normal & intact CN VII: face is symmetric CNVIII: Normal CN XI/X/XI/XII: Intact and Normal Motor: Bulk and Tone is normal. Strength in the right 1-2/5 Strength in the left 4/5 Sensory: Decreased for all the modalities of PP, LT and temp sense in the stockings to Reflexes: 2-3+ and symmetrical Cerebellar function: Cannot be assessed Toes: Equivocal Gait: Not tested Results - Labs CBC & BMP: 04/02/17 05:18 04/02/17 05:18 Assessment and Plan (1) Right sided weakness Status: Acute Assessment and plan: Acute left subcortical basal ganglia infarct. Continue Aggrenox 1 twice a day continue Lipitor. Repeat MRI of the brain Current Visit: Yes Quality Measures - Stroke Presenting Symptoms: Right hemiparesis Symptom Onset Unknown: Yes
--- NOTE | 2017-04-02 16:25 | Physician Query Form ---
CLICK EDIT DOCUMENT TO SELECT QUERY ANSWER --> OK --> SIGN Safia Nagy RN Clinical [employer] W) [phone] (f) [phone] [email or web address] PROVIDERS: Make your selection(s) from the choices in EACH section by typing an "x" and enter comments in the comment section. Please use your independent medical judgment in providing your response. This request does not imply that any particular answer is desired or expected. CLINICAL INDICATORS: (Providers should not edit this section) Based on documentation of "acute renal insufficiency". Creatinine of 1.50 and increased to 2.30 with a GFR of 48. Creatinine monitored with daily lab. Clarify which of the following most accurately represents the patient's renal status: ( ) Acute kidney injury (non-traumatic) ( ) Acute renal failure ( X) Acute renal failure with underlying Chronic Kidney Disease (CKD) - please provide stage below ( ) CKD - please provide stage below ( ) Other, please specify: ( ) Clinically unable to determine Chronic Kidney Disease Stages Source: National Kidney Disease Foundation ( ) Stage I (eGFR > or = 90) (X ) Stage II (eGFR 60 - 89) ( ) Stage III (eGFR 30 - 59) ( ) Stage IV (eGFR 15 - 29) ( ) Stage V (eGFR < 15 or dialysis) COMMENTS: PLEASE ALSO DOCUMENT RESPONSE IN PROGRESS NOTES AND/OR DISCHARGE SUMMARY Use of terms such as suspected, likely, or probable (associated with a specific diagnosis that is being evaluated, monitored, or treated as if it exists) are acceptable and can be restated in the discharge summary if not ruled out. MTDD
--- NOTE | 2017-04-02 17:06 | Magnetic Resonance Report ---
Exam: MR head/brain wo con Date: 04/02/2017 3:21 PM Comparison: 03/30/2017 Indication: Extension of CVA right body weakness Technical: 1.5 Beata magnet Axial T1 pre-and ADC, DWI, FLAIR, gradient echo and FSE T2 Sagittal T1 precontrast, FLAIR Coronal FSE T2 Contrast:0 cc Dotarem Findings: Exam reveals small area of infarction is present in the region of the left thalamus punctate abnormal signal present. This demonstrates restricted diffusion and abnormal ADC imaging as well. This finding is however similar to previous exam. The brainstem reveals ischemic changes within the brainstem. The cerebellum reveals mild atrophy. The cerebral hemispheres exhibit abnormal blotchy areas of abnormal signal in the periventricular subcortical white matter regions bilaterally. Small vessel changes are also present in the thalamic regions bilaterally as well as the infarction area. The gradient echo image reveals no obvious focal defined hemorrhage clearly seen at this time. Small punctate areas are demonstrated on the gradient echo images suggest old areas of hemorrhage in the rolando and in the cerebral hemispheres bilaterally. Amyloidosis would be considered There is thinning of the corpus callosum present. The seventh and eighth cranial nerves and cerebral pontine angles are intact. The pituitary gland, infundibulum and optic chiasm are intact. The paranasal sinuses exhibit abnormal with polyp or retention cyst in the right maxillary sinus measuring 2.4 cm. The mastoid sinuses are unremarkable. The globes and intra-and extraconal spaces are unremarkable. Impression: 1. Small area of infarction involving the left basal ganglia thalamic junction similar to previous exam. 2. Small vessel ischemic changes diffusely present 3. Ischemic changes within the brainstem. 4. Polyp or retention cyst right maxillary antrum. 5. Consider the possibility of amyloidosis changes PROCEDURE INTERPRETED AT [facility] DEPARTMENT OF RADIOLOGY Final Report Signed by: Dr. Eamon Ley
[2017-04-02] MEDS: INSULIN NPH 100 UNIT/ML SUBCUT SCH (19:59)
[2017-04-02] MEDS: INSULIN GLARGINE 100 UNIT/ML SUBCUT SCH (20:10)
[2017-04-02] MEDS: FAMOTIDINE 20 MG TABLET PO SCH (20:11)
[2017-04-02] MEDS: ATORVASTATIN 10 MG TABLET PO SCH (20:11)
[2017-04-03 05:18] LABS: Basophils # 0.1 10*3/uL (0.0-0.2); Basophils % 0.6 % (0.0-0.8); Eosinophils # 0.1 10*3/uL (0.0-0.87); Hematocrit 36.9 VOL% (42.0-52.0); Hemoglobin 12.4 GM/DL (14.0-18.0); Immature Granulocytes % 0.4 %; Immature Granulocytes Absolute 0.04 #; Lymphocytes # 2.2 10*3/uL (1.4-4.0); Lymphocytes % 23.4 % (21.2-54.2); Mean Corpuscular HGB Conc 33.6 GM/DL (32-36); Mean Corpuscular Hemoglobin 28 PG (27-34); Mean Corpuscular Volume 81.8 FL (87-102); Mean Platelet Volume 12.5 FL (9.6-12.0); Monocytes # 0.8 10*3/uL (0.11-0.8); Monocytes % 8.5 % (1.7-12.7); Neutrophils # 6.2 10*3/uL (1.4-7.4); Neutrophils % 66.1 % (38.7-73.9); Platelet Count 195 T/CUMM (130-400); Red Blood Count 4.51 MC/CUMM (3.8-5.5); Red Cell Distribution Width 13.9 % (9.3-17.3); White Blood Count 9.3 T/CUMM (4-12)
[2017-04-03 06:00] LABS: Calcium 8.6 MG/DL (8.5-10.1); Calcium 8.7 MG/DL (8.5-10.1); Magnesium 3.4 MG/DL (1.8-2.4); Osmolality,Calculated 282.7 MOS/KG (273-304); Osmolality,Calculated 283.7 MOS/KG (273-304); Potassium 4.1 MMOL/L (3.5-5.1)
[2017-04-03] MEDS: INSULIN LISPRO 100 UNIT/ML SUBCUT SCH ×4 (08:58→22:32)
[2017-04-03] MEDS: cloNIDine 0.1 MG TABLET PO SCH ×4 (10:01→22:33)
[2017-04-03] MEDS: DOCUSATE SODIUM 100 MG CAPSULE PO SCH (10:01)
[2017-04-03] MEDS: DILTIAZEM CD 180 MG CAPSULE PO SCH (10:01)
[2017-04-03] MEDS: CARVEDILOL 12.5 MG TABLET PO SCH ×2 (10:01→22:32)
[2017-04-03] MEDS: DIPYRIDAMOLE/ASPIRIN 200-25 MG CAPSULE PO SCH ×2 (10:01→22:31)
[2017-04-03] MEDS: GLIMEPIRIDE 2 MG TABLET PO SCH (10:01)
[2017-04-03] MEDS: INSULIN NPH 100 UNIT/ML SUBCUT SCH ×2 (10:01→17:56)
[2017-04-03] MEDS: ENOXAPARIN 40 MG/0.4 ML SYRINGE SUBCUT SCH (10:02)
--- NOTE | 2017-04-03 10:40 | Discharge Summary ---
Hospital Course - Hospital Course Hospital Course: Mr. Bridger Miller is a 56 year old male with a history of uncontrolled hypertension, uncontrolled diabetes mellitus, prior CVA, renal insufficiency, obstructive sleep apnea (reportedly compliant with CPAP), and non -compliance. Risk factors are significant for: hypertension, diabetes, obesity, sedentary lifestyle. He has a history of prior CVA in October 2015. He requires the use of a walker or cane for ambulation. He presented to the emergency room with complaints of chest pain and right-sided weakness. He reports he has been experiencing left sided weakness for the past 3-4 months and has recently begun experiencing slurred speech. He had been using a cane/ walker for ambulation, but on Sunday, his weakness shifted from his left sided to his right side. On the morning of admission, he was having difficulty walking and also experienced substernal chest pain. He reports that he frequently experiences substernal chest pain that he describes as feeling like acid reflux. He reports this is worse when he is lying down and he frequently has to take TUMS and Zantac for relief. He also reports nausea without vomiting and occasional palpitations. He also tells me that he "gives out of breath" easily and has noticed this progressively worsening over the past 6 months. He tells me that it is worse when he is ambulatory and he has even noticed conversational dyspnea. Upon arrival, his CT head showed no acute intracranial abnormality. Carotid dopplers revealed no sign of narrowing (50% or greater) of either cervical internal carotid artery. Echo showed ejection fraction of 60-65 % with moderate LVH, normal valves, and diastolic dysfunction. D-Dimer was 0.6. MRI of the brain revealed small focus of restricted diffusion in the left basal ganglia likely representing subacute infarct. According to the record on April 01 while patient was trying to get to bedside commode, he became weak diaphoretic and passed out. Dr. Orozco is concerned that he extended his stroke. Venous Doppler done April 01 was negative for DVT. MRI of the brain was done yesterday, see report. This morning Mr. Sparks is resting in bed. He is able to communicate and denies any chest pain or shortness of breath. He is able to squeeze my hands with each of his, but is noted to be weak. Blood pressure meds were adjusted yesterday, blood pressure is improved this morning 133/68. Impression: Acute ischemic stroke Hypertensive urgency with stroke Echo shows ejection fraction 60-65 with 3+ LVH and normal valves and diastolic dysfunction Obstructive sleep apnea on CPAP Obesity Diabetes with poor control Mild chronic renal failure followed by Dr. Carrero Remote tobacco abuse-quit 2011 No history of angina or heart failure The patient's renal function worsened during the course of the hospitalization. I have tried to change his Lasix dose in the computer but have been unsuccessful. His Lasix should be held for the next day or 2. - Time spent with patient Time with patient DS: Greater than 30 minutes (Total discharge time for this patient, including [id number] time, clinical documentation, medication reconciliation, and discharge planning was 40 minutes.) Diagnosis - Discharge Diagnosis (1) Acute ischemic stroke Status: Acute (2) Severe hypertension Status: Chronic (3) Diabetes mellitus Status: Chronic (4) Right sided weakness Status: Acute (5) Obesity Status: Chronic (6) Obstructive sleep apnea Status: Chronic (7) Dyslipidemia Status: Chronic (8) Chronic kidney disease Status: Chronic Specialty Discharge - Follow Up or Referrals Follow up with: Homero Orozco MD [Physician] - Km Rosenbaum MD [Physician] - 04/18/17 12:40 pm (with ekg ) Discharge Plan - Discharge Data Disposition: Disch/Xfer-Ip Rehab Fac Condition at Discharge: Stable Discharge Diet: advance to your usual diet Activity: resume usual activities as tolerated Hygiene: no restrictions Contact your physician if you experience:: fever over 101, Nausea/Vomiting, Shortness of breath - Discharge Medications New Dipyridamole/Aspirin 200-25 [Aggrenox] 1 capsule PO BID #60 capsule Docusate Sodium Cap [Colace Cap] 100 mg PO DAILY capsule Atorvastatin [Lipitor] 40 mg PO BEDTIME #30 tablet Insulin Glargine [Lantus] 15 unit SUBCUT BEDTIME unit Continue Insulin NPH Human Isophane [NovoLIN N] 60 unit SUBCUT QAM Insulin NPH Human Isophane [NovoLIN N] 30 units SUBCUT 1800 Potassium Chloride [Klor-Con M20] 20 meq PO DAILY cloNIDine TAB [Catapres Tab] 0.1 mg PO BID #60 tablet dilTIAZem HCl [Taztia XT] 180 mg PO DAILY #30 tablet Furosemide Tab [Lasix Tab] 160 mg PO QAM #0 tablet Carvedilol [Coreg] 12.5 mg PO BID Glimepiride [Amaryl] 4 mg PO DAILY W/BREAKFAST #30 tablet - Follow Up or Referral Follow Up: Homero Orozco MD [Physician] - Km Rosenbaum MD [Physician] - 04/18/17 12:40 pm (with ekg ) - Forms/Instructions Exam - Constitutional Vitals: Period Temp Pulse Resp BP Sys/Mike Pulse Ox Last 24 Hr 97.7 F-98.7 F 74-113 11-22 108-158/52-80 97-100 Discharge Results Procedures and tests throughout hospitalization: Pending Orders 04/01/17 16:55 MRSA Surveillence, Inf Control Routine Labs on day of discharge: Labs from last 24 hours 04/03/17 04/03/17 04/03/17 08:24 04:45 04:45 WBC 9.3 RBC 4.51 Hgb 12.4 L Hct 36.9 L MCV 81.8 L MCH 28 MCHC 33.6 RDW 13.9 Plt Count 195 MPV 12.5 H Neut % (Auto) 66.1 Lymph % (Auto) 23.4 [place] % (Auto) 8.5 Eos % (Auto) 1.0 Baso % (Auto) 0.6 Neut # (Auto) 6.2 Lymph # (Auto) 2.2 [place] # (Auto) 0.8 Eos # (Auto) 0.1 Baso # (Auto) 0.1 Immature Gran % 0.4 Nucleated RBC % 0.0 Immature Gran # 0.04 Nucleated RBCs # 0.00 Sodium 138 Potassium 4.1 Chloride 102 Carbon Dioxide 30 Anion Gap 10.1 BUN 32 H Creatinine 2.80 H GFR Calculation 38 BUN/Creatinine Ratio 11.00 Glucose 125 H POC Glucose 139 H Calculated Osmolality 282.7 Calcium 8.7 Magnesium 3.4 H 04/03/17 04/02/17 04/02/17 04:45 20:06 15:57 WBC RBC Hgb Hct MCV MCH MCHC RDW Plt Count MPV Neut % (Auto) Lymph % (Auto) [place] % (Auto) Eos % (Auto) Baso % (Auto) Neut # (Auto) Lymph # (Auto) [place] # (Auto) Eos # (Auto) Baso # (Auto) Immature Gran % Nucleated RBC % Immature Gran # Nucleated RBCs # Sodium 138 Potassium 4.1 Chloride 102 Carbon Dioxide 30 Anion Gap 10.1 BUN 32 H D Creatinine 2.70 H GFR Calculation 40 BUN/Creatinine Ratio 11.00 Glucose 126 H POC Glucose 283 H 291 H Calculated Osmolality 283.7 Calcium 8.6 Magnesium DS: Provider Date of admission: 03/30/17 07:02 Primary care physician: . No PCP Attending physician on admission: Alfonzo Campbell MD Consults: 03/30/17 08:26 Consult to Physician [CONS] Routine Comment: Chest pain unrelieved by NTG Consulting Provider: Cardiology - [facility] When should Consulting Provider be notified: Now Consult to Specialist Group: Cardiology Person Notified: mc Date Notified: 03/30/17 Time Notified: 10:50 03/30/17 10:13 Consult to Case Mgmt/Social Srvs [CONS] Routine Reason for Case Mgmt/Social Srvs: Discharge Planning Consult to Occupational Therapy [CONS] Routine Reason for Occupational Therapy: Evaluate and Treat Consult Comment: Stroke Consult to Physical Therapy [CONS] Routine Reason for Physical Therapy: Evaluate and Treat Consult Comment: stroke 03/30/17 10:24 Consult to Physician [CONS] Routine Comment: CVA Consulting Provider: Homero Orozco Consult to Specialist Group: Neurology Person Notified: KRISTINE RETURNED CALL AT [phone] Consult Notification Comment: left message at 1055 03/30/17 10:46 Consult to Pastoral Services [CONS] Routine Comment: Pastoral Screen: Crying,Anxiety,Nervous,M Other Source Requesting: Pt had a recent stroke 03/31/17 15:47 Consult to Case Mgmt/Social Srvs [CONS] Routine Reason for Case Mgmt/Social Srvs: Rehab 03/31/17 17:06 Consult to Dietitian [CONS] Routine Reason for Dietitian: Dietary Consult Discharging clinician: Julio King MD Expected date of discharge: 04/04/17
--- NOTE | 2017-04-03 11:15 | Cardiology Progress Note ---
Carley Angeles April RN, am scribing for, and in the presence of, Sid Berumen MD 11:15. 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 Bridger Miller is a 56 year old male with a history of uncontrolled hypertension, uncontrolled diabetes mellitus, prior CVA, renal insufficiency, obstructive sleep apnea (reportedly compliant with CPAP), and non -compliance. Risk factors are significant for: hypertension, diabetes, obesity, sedentary lifestyle. He has a history of prior CVA in October 2015. He requires the use of a walker or cane for ambulation. He presented to the emergency room with complaints of chest pain and right-sided weakness. He reports he has been experiencing left sided weakness for the past 3-4 months and has recently begun experiencing slurred speech. He had been using a cane/ walker for ambulation, but on Sunday, his weakness shifted from his left sided to his right side. On the morning of admission, he was having difficulty walking and also experienced substernal chest pain. He reports that he frequently experiences substernal chest pain that he describes as feeling like acid reflux. He reports this is worse when he is lying down and he frequently has to take TUMS and Zantac for relief. He also reports nausea without vomiting and occasional palpitations. He also tells me that he "gives out of breath" easily and has noticed this progressively worsening over the past 6 months. He tells me that it is worse when he is ambulatory and he has even noticed conversational dyspnea. Upon arrival, his CT head showed no acute intracranial abnormality. Carotid dopplers revealed no sign of narrowing (50% or greater) of either cervical internal carotid artery. Echo showed ejection fraction of 60-65 % with moderate LVH, normal valves, and diastolic dysfunction. D-Dimer was 0.6. MRI of the brain revealed small focus of restricted diffusion in the left basal ganglia likely representing subacute infarct. April 03, 2017: According to the record on April 01 while patient was trying to get to bedside commode, he became weak diaphoretic and passed out. Dr. Orozco is concerned that he extended his stroke. Venous Doppler done April 01 was negative for DVT. MRI of the brain was done yesterday, see report. This morning Mr. Sparks is resting in bed. He is able to communicate and denies any chest pain or shortness of breath. He is able to squeeze my hands with each of his, but is noted to be weak. Blood pressure meds were adjusted yesterday, blood pressure is improved this morning 133/68. Labs data today: WBC 9.3 hemoglobin 12.4 hematocrit 36.9 Sodium 138 potassium 4.1 chloride 102 CO2 30 BUN 32 creatinine 2.80 Magnesium 3.4 Impression: Hypertensive urgency with stroke Echo shows ejection fraction 60-65 with 3+ LVH and normal valves and diastolic dysfunction Obstructive sleep apnea on CPAP Obesity Diabetes with poor control Mild chronic renal failure followed by Dr. Carrero Remote tobacco abuse-quit 2011 No history of angina or heart failure Cardiology addendum. Patient examined chart reviewed and discussed with nurse Tara Howe RN. The patient has mild chronic renal insufficiency. Creatinine is risen to 2.80 BUN 32. His lisinopril was stopped yesterday. This will be followed by Dr. Odell Carrero. Blood pressure is better 116/80 since clonidine 0.1 mg twice daily started CPAP mask 90 has been reemphasized. Agree with discharge per Dr. King Exam (Progress Note) - Constitutional Vitals: Period Temp Pulse Resp BP Sys/Mike Pulse Ox Last 24 Hr 97.7 F-98.7 F 81-113 11-22 127-175/52-90 97-100 General appearance: no acute distress, morbidly obese, other (Slurred speech) - Head Head exam: Absent: abrasion, hematoma - Eye Eye exam: Absent: periorbital swelling, laceration to eyelids - Respiratory Respiratory exam: Present: clear to auscultation bilaterally, other (Oxygen via nasal cannula). Absent: accessory muscle use, chest wall tenderness - Cardiovascular Cardiovascular exam: Present: regular rate and rhythm. Absent: diastolic murmur , rubs, systolic murmur - GI/Abdominal GI/Abdominal exam: Present: normal bowel sounds, soft. Absent: distended, tenderness - Extremities Exam Extremities exam: Absent: calf tenderness, edema - Neurological Exam Neurological exam: Present: alert, oriented X3, other (Extremities noted to be weak) - Psychiatric Psychiatric exam: Present: flat affect - Skin Skin exam: Present: warm, dry Result/EKG - Labs CBC & BMP: 04/03/17 04:45 04/03/17 04:45 Lab Results: I have reviewed the past 24 hour labs Labs: Laboratory Results - last 24 hr 04/02/17 04/02/17 04/03/17 15:57 20:06 04:45 WBC RBC Hgb Hct MCV MCH MCHC RDW Plt Count MPV Neut % (Auto) Lymph % (Auto) Dare % (Auto) Eos % (Auto) Baso % (Auto) Neut # (Auto) Lymph # (Auto) Dare # (Auto) Eos # (Auto) Baso # (Auto) Immature Gran % Nucleated RBC % Immature Gran # Nucleated RBCs # Sodium 138 Potassium 4.1 Chloride 102 Carbon Dioxide 30 Anion Gap 10.1 BUN 32 H D Creatinine 2.70 H GFR Calculation 40 BUN/Creatinine Ratio 11.00 Glucose 126 H POC Glucose 291 H 283 H Calculated Osmolality 283.7 Calcium 8.6 Magnesium 04/03/17 04/03/17 04:45 04:45 WBC 9.3 RBC 4.51 Hgb 12.4 L Hct 36.9 L MCV 81.8 L MCH 28 MCHC 33.6 RDW 13.9 Plt Count 195 MPV 12.5 H Neut % (Auto) 66.1 Lymph % (Auto) 23.4 Dare % (Auto) 8.5 Eos % (Auto) 1.0 Baso % (Auto) 0.6 Neut # (Auto) 6.2 Lymph # (Auto) 2.2 Dare # (Auto) 0.8 Eos # (Auto) 0.1 Baso # (Auto) 0.1 Immature Gran % 0.4 Nucleated RBC % 0.0 Immature Gran # 0.04 Nucleated RBCs # 0.00 Sodium 138 Potassium 4.1 Chloride 102 Carbon Dioxide 30 Anion Gap 10.1 BUN 32 H Creatinine 2.80 H GFR Calculation 38 BUN/Creatinine Ratio 11.00 Glucose 125 H POC Glucose Calculated Osmolality 282.7 Calcium 8.7 Magnesium 3.4 H - EKG EKG results: interpreted by me EKG shows: sinus rhythm Quality Measures - Stroke Presenting Symptoms: Right hemiparesis Symptom Onset Unknown: Yes Specialty Discharge - Follow Up or Referrals Follow up with: Homero Orozco MD [Physician] - Km Rosenbaum MD [Physician] - 04/18/17 12:40 pm (with ekg ) IJamaica Thomas, MD, personally performed the services described in this documentation, ascribed by Tara Howe RN in my presence, and it is both accurate and complete .
--- NOTE | 2017-04-03 13:42 | Physician Query Form ---
CLICK EDIT DOCUMENT TO SELECT QUERY ANSWER --> OK --> SIGN Safia Nagy RN Clinical [employer]ite Control Servicer W) [phone] (f) [phone] [email or web address]: Make your selection(s) from the choices in EACH section by typing an "x" and enter comments in the comment section. Please use your independent medical judgment in providing your response. This request does not imply that any particular answer is desired or expected. CLINICAL INDICATORS: (Providers should not edit this section) Based on documentation of "history of CHF", [id number], Echo showed ejection fraction estimated greater than 70% with diastolic dysfunction. Pt. treated with Lasix and Coreg as home medications. Please clarify the type of CHF the patient has a history of. Please provide further specificity regarding CHF. TYPE: ( ) Systolic (HFrEF - heart failure with reduced systolic function/EF) (x ) Diastolic (HFpEF - heart failure with preserved systolic function/EF) ( ) Combined Systolic/Diastolic ( ) Other, please specify: ( ) Clinically unable to determine COMMENTS: PLEASE ALSO DOCUMENT RESPONSE IN PROGRESS NOTES AND/OR DISCHARGE SUMMARY Use of terms such as suspected, likely, or probable (associated with a specific diagnosis that is being evaluated, monitored, or treated as if it exists) are acceptable and can be restated in the discharge summary if not ruled out. MTDD
--- NOTE | 2017-04-03 16:33 | Event Note ---
The patient's discharge was held up due to lack of urine output after removal of catheter. Despite his discharge order being placed at 10:30 in the morning, I was contacted at 4:30pm by the nursing staff to inform me that the patient would not be able to go to rehab today as he has not voided since the removal of his urinary catheter at 12:30. Patient will be kept overnight and discharged to rehab in the morning-at the request of Dr. Orozco.
[2017-04-03] MEDS: FAMOTIDINE 20 MG TABLET PO SCH (22:31)
[2017-04-03] MEDS: ATORVASTATIN 10 MG TABLET PO SCH (22:32)
[2017-04-03] MEDS: INSULIN GLARGINE 100 UNIT/ML SUBCUT SCH (22:33)
[2017-04-04] MEDS: INSULIN LISPRO 100 UNIT/ML SUBCUT SCH ×2 (08:13→11:54)
--- NOTE | 2017-04-04 09:06 | Cardiology Progress Note ---
Assessment and Plan (1) Recent cerebrovascular accident (CVA) Status: Acute Current Visit: Yes (2) Right sided weakness Status: Acute Current Visit: Yes (3) Diabetes mellitus Status: Chronic Current Visit: Yes Qualifiers: Diabetes mellitus type: type 2 (4) Renal insufficiency Status: Chronic Current Visit: Yes (5) Severe hypertension Status: Chronic Current Visit: Yes Cardiology - PN: Subj Interval history: Cardiology note Status post hypertensive urgency with stroke. Patient did void and will go to rehab today. Telemetry shows sinus rhythm in the 60s. Blood pressure 132/76. Regular rhythm no gallop. Decreased breath sounds but clear. Marked right arm and leg paresis. Speech a little thick. Plan Awaiting transfer to rehab Continue clonidine 0.1 mg twice daily Amlodipine 10 mg daily Exam (Progress Note) - Constitutional Vitals: Period Temp Pulse Resp BP Sys/Mike Pulse Ox Last 24 Hr 97.4 F-99.3 F 67-84 16-67 116-132/56-65 94-100 Result/EKG - Labs CBC & BMP: 04/03/17 04:45 04/03/17 04:45 Labs: Laboratory Results - last 24 hr 04/03/17 04/03/17 04/03/17 11:46 16:45 19:19 POC Glucose 267 H 269 H 272 H 04/04/17 07:43 POC Glucose 151 H Quality Measures - Stroke Presenting Symptoms: Right hemiparesis Symptom Onset Unknown: Yes Specialty Discharge - Follow Up or Referrals Follow up with: Homero Orozco MD [Physician] - Km Rosenbaum MD [Physician] - 04/18/17 12:40 pm (with ekg )
[2017-04-04] MEDS: CARVEDILOL 12.5 MG TABLET PO SCH (09:12)
[2017-04-04] MEDS: cloNIDine 0.1 MG TABLET PO SCH ×2 (09:12→09:25)
[2017-04-04] MEDS: DOCUSATE SODIUM 100 MG CAPSULE PO SCH (09:12)
[2017-04-04] MEDS: GLIMEPIRIDE 2 MG TABLET PO SCH (09:13)
[2017-04-04] MEDS: DILTIAZEM CD 180 MG CAPSULE PO SCH (09:13)
[2017-04-04] MEDS: DIPYRIDAMOLE/ASPIRIN 200-25 MG CAPSULE PO SCH (09:13)
[2017-04-04] MEDS: INSULIN NPH 100 UNIT/ML SUBCUT SCH (09:13)
[2017-04-04] MEDS: ENOXAPARIN 40 MG/0.4 ML SYRINGE SUBCUT SCH (11:26)
[2017-04-04 11:34] VITALS: BP 138/68
== END 2017-04-04 13:30 | DRG 45 ==
LOC: N.ED 04:54 → SUATTDRO 07:02 → N.EDINP 07:02 → N.TELES 09:42 → N.CC 04-01 15:05 → N.TELEN 04-02 19:39 → N.CC 04-02 19:52 → N.TELEN 04-02 21:17
PROVIDERS: ADMIT Internal Medicine Infectious Disease; ATTEND Family Medicine

== ENCOUNTER 2018-06-27 09:36 | Inpatient (IN) ==
[2018-06-27 10:34] LABS: Basophils # 0.1 10*3/uL (0.0-0.2); Basophils % 0.9 % (0.0-0.8); Eosinophils # 0.1 10*3/uL (0.0-0.87); Eosinophils % 1.6 % (0.00-10.9); Hematocrit 34.2 VOL% (42.0-52.0); Hemoglobin 10.8 GM/DL (14.0-18.0); Immature Granulocytes % 0.3 %; Immature Granulocytes Absolute 0.03 #; Lymphocytes # 2.6 10*3/uL (1.4-4.0); Lymphocytes % 29.6 % (21.2-54.2); Mean Corpuscular HGB Conc 31.6 GM/DL (32-36); Mean Corpuscular Hemoglobin 29 PG (27-34); Mean Corpuscular Volume 91.9 FL (87-102); Mean Platelet Volume 10.9 FL (9.6-12.0); Monocytes # 0.9 10*3/uL (0.11-0.8); Monocytes % 9.9 % (1.7-12.7); Neutrophils % 57.7 % (38.7-73.9); Platelet Count 215 T/CUMM (130-400); Red Blood Count 3.72 MC/CUMM (3.8-5.5); Red Cell Distribution Width 13.3 % (9.3-17.3); White Blood Count 8.7 T/CUMM (4-12)
[2018-06-27] MEDS ORDERED: ALBUTEROL/IPRATROPIUM 3 ML NEB RESP TX STA (10:37)
[2018-06-27 10:43] LABS: Apearance,Urine CLOUDY (Clear); Bacteria,Urine Few /HPF (Few); Bilirubin,Urine Negative (Negative); Blood, Urine Negative (Negative); Glucose,Urine (UA) Negative (Negative); Ketones,Urine Negative (Negative); Mucus,Urine Occasional /LPF (Occasional); Nitrite,Urine Positive (Negative); Protein,Urine 30 MG/DL; RBC,Urine 8 /HPF (0-4); Squamous Epithelial Cell,Urine Occasional /HPF (0-10); Urine Color Yellow (Yellow); Urine Urobilinogen < 2.0 EU/DL (0.2-1.0); WBC,Urine 285 /HPF (0-6)
[2018-06-27 10:47] LABS: Alanine Aminotransferase 28 U/L (16-61); Albumin 3.7 G/DL (3.4-5.0); Alkaline Phosphatase 97 U/L (45-117); Aspartate Amino Transferase 20 U/L (0-37); Bilirubin,Total < 0.39 MG/DL (0.2-1.0); Calcium 8.5 MG/DL (8.5-10.1); Total Protein 7.5 G/DL (6.4-8.3)
[2018-06-27 10:48] LABS: Blood Urea Nitrogen 20 MG/DL (7-18); Glucose 118 MG/DL (74-106); Osmolality,Calculated 286.1 MOS/KG (273-304); PT Patient Result 10.3 SECS; Partial Thromboplastin Time 21.8 SECS (0-40); Potassium 3.9 MMOL/L (3.5-5.1); Sodium 142 MMOL/L (136-145); Uric Acid 6.1 MG/DL (3.5-7.2)
[2018-06-27 10:53] LABS: Lactic Acid 0.6 MMOL/L (0.4-2.0)
[2018-06-27 11:15] LABS: Anisocytosis 1+; Hypochromasia Slight; Microcytosis 1+
[2018-06-27 11:20] LABS: Acanthocytes Few
[2018-06-27 11:21] LABS: Platelet Estimate Normal; Poikilocytosis Slight
[2018-06-27] MEDS ORDERED: LEVOFLOXACIN INJ 500 MG in PREMIX 1 EACH IV STA (12:05)
[2018-06-27] MEDS ORDERED: DEXTROSE 50% 25 GM/50 ML VIAL IV PRN ×2 (12:07→17:04)
[2018-06-27] MEDS ORDERED: ONDANSETRON 4 MG/2 ML VIAL IV PRN (12:07)
[2018-06-27] MEDS ORDERED: ACETAMINOPHEN 325 MG TABLET PO PRN (12:07)
[2018-06-27] MEDS ORDERED: GLUCAGON 1 MG VIAL IM PRN ×2 (12:07→17:04)
[2018-06-27] MEDS ORDERED: FUROSEMIDE 40 MG/4 ML VIAL IV ONE (17:05)
[2018-06-27] MEDS ORDERED: ALBUTEROL/IPRATROPIUM 3 ML NEB RESP TX PRN (17:05)
[2018-06-27] MEDS: cefTRIAXone 500 MG in SYRINGE 1 EACH IV SCH (18:40)
[2018-06-27] MEDS: POTASSIUM CHLORIDE 20 MEQ TABLET PO SCH (18:45)
[2018-06-27] MEDS: ALBUTEROL/IPRATROPIUM 3 ML NEB RESP TX SCH (19:34)
[2018-06-27] MEDS: PHENYTOIN ER 100 MG CAPSULE PO SCH (20:39)
[2018-06-27] MEDS ORDERED: DOCUSATE SODIUM 100 MG CAPSULE PO SCH (21:00)
[2018-06-27] MEDS: DOCUSATE SODIUM 100 MG CAPSULE PO SCH (21:54)
[2018-06-27] MEDS: INSULIN REGULAR 100 UNIT/ML SUBCUT SCH (21:55)
[2018-06-28] MEDS: GLIMEPIRIDE 2 MG TABLET PO SCH (05:40)
[2018-06-28] MEDS: POTASSIUM CHLORIDE 20 MEQ TABLET PO SCH ×2 (05:40→16:48)
[2018-06-28 06:45] LABS: Calcium 8.6 MG/DL (8.5-10.1); Osmolality,Calculated 288.1 MOS/KG (273-304); Potassium 4.1 MMOL/L (3.5-5.1)
[2018-06-28] MEDS: ALBUTEROL/IPRATROPIUM 3 ML NEB RESP TX SCH ×2 (07:00→19:34)
[2018-06-28] MEDS ORDERED: INSULIN NPH 100 UNIT/ML SUBCUT SCH (08:00)
[2018-06-28] MEDS ORDERED: LIDOCAINE 5% PATCH TRANSDERM SCH (09:00)
[2018-06-28] MEDS ORDERED: PANTOPRAZOLE 40 MG TABLET PO SCH (09:00)
[2018-06-28] MEDS ORDERED: CLOPIDOGREL 75 MG TABLET PO SCH (09:00)
[2018-06-28] MEDS: ISOSORBIDE DINITRATE 10 MG TABLET PO SCH (09:10)
[2018-06-28] MEDS: INSULIN NPH 100 UNIT/ML SUBCUT SCH (09:10)
[2018-06-28] MEDS: POLYETHYLENE GLYCOL POWDER 17 GM PACK PO SCH (09:10)
[2018-06-28] MEDS: PANTOPRAZOLE 40 MG TABLET PO SCH (09:10)
[2018-06-28] MEDS: INSULIN REGULAR 100 UNIT/ML SUBCUT SCH ×4 (09:10→21:10)
[2018-06-28] MEDS: CITALOPRAM 20 MG TABLET PO SCH (09:11)
[2018-06-28] MEDS: PHENYTOIN ER 100 MG CAPSULE PO SCH ×2 (09:11→21:06)
[2018-06-28] MEDS: DOCUSATE SODIUM 100 MG CAPSULE PO SCH ×2 (09:11→21:06)
[2018-06-28] MEDS: NEBIVOLOL 10 MG TABLET PO SCH (09:11)
[2018-06-28] MEDS: ASPIRIN EC 81 MG TABLET PO SCH (09:12)
[2018-06-28] MEDS: FUROSEMIDE 40 MG/4 ML VIAL IV SCH (09:20)
[2018-06-28] MEDS: DILTIAZEM CD 180 MG CAPSULE PO SCH (10:33)
[2018-06-28] MEDS: amLODIPine 5 MG TABLET PO SCH (10:33)
[2018-06-28] MEDS: cloNIDine 0.1 MG TABLET PO SCH (12:05)
[2018-06-28 14:42] LABS: Basophils # 0.1 10*3/uL (0.0-0.2); Basophils % 0.7 % (0.0-0.8); Eosinophils # 0.1 10*3/uL (0.0-0.87); Eosinophils % 1.2 % (0.00-10.9); Hematocrit 31.4 VOL% (42.0-52.0); Immature Granulocytes % 0.2 %; Immature Granulocytes Absolute 0.02 #; Lymphocytes # 2.1 10*3/uL (1.4-4.0); Lymphocytes % 24.4 % (21.2-54.2); Mean Corpuscular HGB Conc 31.8 GM/DL (32-36); Mean Corpuscular Hemoglobin 29 PG (27-34); Mean Corpuscular Volume 91.8 FL (87-102); Monocytes # 0.9 10*3/uL (0.11-0.8); Monocytes % 10.1 % (1.7-12.7); Neutrophils # 5.4 10*3/uL (1.4-7.4); Neutrophils % 63.4 % (38.7-73.9); Platelet Count 209 T/CUMM (130-400); Red Blood Count 3.42 MC/CUMM (3.8-5.5); Red Cell Distribution Width 13.2 % (9.3-17.3); White Blood Count 8.6 T/CUMM (4-12)
[2018-06-28] MEDS: SKIN HEALING OINT (AQUAPHOR) 50 GM TUBE TOP SCH (14:57)
[2018-06-28] MEDS: SODIUM CHLORIDE 0.45% 1,000 ML IV SCH (14:57)
[2018-06-28] MEDS: INSULIN GLARGINE 100 UNIT/ML SUBCUT SCH (16:16)
[2018-06-28] MEDS: BACLOFEN 10 MG TABLET PO SCH ×2 (16:17→21:05)
[2018-06-28] MEDS: cefTRIAXone 500 MG in SYRINGE 1 EACH IV SCH (16:20)
[2018-06-29] MEDS: SODIUM CHLORIDE 0.45% 1,000 ML IV SCH ×2 (04:41→17:29)
[2018-06-29 05:23] LABS: Basophils # 0.1 10*3/uL (0.0-0.2); Basophils % 0.7 % (0.0-0.8); Eosinophils # 0.2 10*3/uL (0.0-0.87); Eosinophils % 2.4 % (0.00-10.9); Hematocrit 33.8 VOL% (42.0-52.0); Hemoglobin 10.4 GM/DL (14.0-18.0); Immature Granulocytes % 0.2 %; Immature Granulocytes Absolute 0.02 #; Lymphocytes # 2.5 10*3/uL (1.4-4.0); Mean Corpuscular HGB Conc 30.8 GM/DL (32-36); Mean Corpuscular Hemoglobin 28 PG (27-34); Mean Corpuscular Volume 90.9 FL (87-102); Mean Platelet Volume 11.1 FL (9.6-12.0); Monocytes % 10.6 % (1.7-12.7); Neutrophils # 5.3 10*3/uL (1.4-7.4); Neutrophils % 58.1 % (38.7-73.9); Platelet Count 214 T/CUMM (130-400); Red Blood Count 3.72 MC/CUMM (3.8-5.5); Red Cell Distribution Width 13.2 % (9.3-17.3); White Blood Count 9.1 T/CUMM (4-12)
[2018-06-29 05:42] LABS: Albumin 3.2 G/DL (3.4-5.0); Bilirubin,Total 0.5 MG/DL (0.2-1.0); Calcium 8.3 MG/DL (8.5-10.1); Osmolality,Calculated 284.5 MOS/KG (273-304); Potassium 4.1 MMOL/L (3.5-5.1); Total Protein 7.1 G/DL (6.4-8.3)
[2018-06-29] MEDS: POTASSIUM CHLORIDE 20 MEQ TABLET PO SCH ×2 (06:27→17:32)
[2018-06-29] MEDS: GLIMEPIRIDE 2 MG TABLET PO SCH (06:27)
[2018-06-29] MEDS: ALBUTEROL/IPRATROPIUM 3 ML NEB RESP TX SCH ×2 (07:27→18:58)
[2018-06-29] MEDS: INSULIN REGULAR 100 UNIT/ML SUBCUT SCH ×4 (09:22→21:23)
[2018-06-29] MEDS: ISOSORBIDE DINITRATE 10 MG TABLET PO SCH (09:29)
[2018-06-29] MEDS: BACLOFEN 10 MG TABLET PO SCH ×4 (09:30→21:14)
[2018-06-29] MEDS: NEBIVOLOL 10 MG TABLET PO SCH (09:30)
[2018-06-29] MEDS: amLODIPine 5 MG TABLET PO SCH (09:30)
[2018-06-29] MEDS: CITALOPRAM 20 MG TABLET PO SCH (09:30)
[2018-06-29] MEDS: PHENYTOIN ER 100 MG CAPSULE PO SCH ×2 (09:30→21:14)
[2018-06-29] MEDS: DOCUSATE SODIUM 100 MG CAPSULE PO SCH ×2 (09:30→21:14)
[2018-06-29] MEDS: PANTOPRAZOLE 40 MG TABLET PO SCH (09:30)
[2018-06-29] MEDS: DILTIAZEM CD 180 MG CAPSULE PO SCH (09:31)
[2018-06-29] MEDS: SKIN HEALING OINT (AQUAPHOR) 50 GM TUBE TOP SCH (09:31)
[2018-06-29] MEDS: FUROSEMIDE 40 MG/4 ML VIAL IV SCH (09:31)
[2018-06-29] MEDS: ASPIRIN EC 81 MG TABLET PO SCH (09:31)
[2018-06-29] MEDS: LIDOCAINE 5% PATCH TRANSDERM SCH (09:32)
[2018-06-29] MEDS: POLYETHYLENE GLYCOL POWDER 17 GM PACK PO SCH (09:40)
[2018-06-29] MEDS: cloNIDine 0.1 MG TABLET PO SCH (14:49)
[2018-06-29] MEDS: INSULIN NPH 100 UNIT/ML SUBCUT SCH (14:50)
[2018-06-29] MEDS: INSULIN GLARGINE 100 UNIT/ML SUBCUT SCH (17:31)
[2018-06-29] MEDS: cefTRIAXone 500 MG in SYRINGE 1 EACH IV SCH (17:31)
[2018-06-30] MEDS: GLIMEPIRIDE 2 MG TABLET PO SCH (05:59)
[2018-06-30] MEDS: POTASSIUM CHLORIDE 20 MEQ TABLET PO SCH ×2 (05:59→18:28)
[2018-06-30] MEDS: SODIUM CHLORIDE 0.45% 1,000 ML IV SCH ×2 (06:09→20:41)
[2018-06-30] MEDS: ALBUTEROL/IPRATROPIUM 3 ML NEB RESP TX SCH ×2 (07:12→19:19)
[2018-06-30] MEDS: POLYETHYLENE GLYCOL POWDER 17 GM PACK PO SCH (09:05)
[2018-06-30] MEDS: PHENYTOIN ER 100 MG CAPSULE PO SCH ×2 (09:06→20:42)
[2018-06-30] MEDS: ISOSORBIDE DINITRATE 10 MG TABLET PO SCH (09:06)
[2018-06-30] MEDS: CITALOPRAM 20 MG TABLET PO SCH (09:06)
[2018-06-30] MEDS: PANTOPRAZOLE 40 MG TABLET PO SCH (09:06)
[2018-06-30] MEDS: DILTIAZEM CD 180 MG CAPSULE PO SCH (09:06)
[2018-06-30] MEDS: amLODIPine 5 MG TABLET PO SCH (09:06)
[2018-06-30] MEDS: BACLOFEN 10 MG TABLET PO SCH ×4 (09:07→20:42)
[2018-06-30] MEDS: INSULIN NPH 100 UNIT/ML SUBCUT SCH (09:07)
[2018-06-30] MEDS: NEBIVOLOL 10 MG TABLET PO SCH (09:07)
[2018-06-30] MEDS: SKIN HEALING OINT (AQUAPHOR) 50 GM TUBE TOP SCH (09:07)
[2018-06-30] MEDS: DOCUSATE SODIUM 100 MG CAPSULE PO SCH ×2 (09:07→20:42)
[2018-06-30] MEDS: ASPIRIN EC 81 MG TABLET PO SCH (09:07)
[2018-06-30] MEDS: FUROSEMIDE 40 MG/4 ML VIAL IV SCH (09:08)
[2018-06-30] MEDS: LIDOCAINE 5% PATCH TRANSDERM SCH (09:08)
[2018-06-30] MEDS: cloNIDine 0.1 MG TABLET PO SCH (15:23)
[2018-06-30] MEDS: INSULIN REGULAR 100 UNIT/ML SUBCUT SCH ×4 (15:32→21:13)
[2018-06-30] MEDS: cefTRIAXone 500 MG in SYRINGE 1 EACH IV SCH (18:28)
[2018-06-30] MEDS: INSULIN GLARGINE 100 UNIT/ML SUBCUT SCH (18:48)
[2018-07-01 03:42] LABS: Basophils # 0.1 10*3/uL (0.0-0.2); Basophils % 0.8 % (0.0-0.8); Eosinophils # 0.3 10*3/uL (0.0-0.87); Hematocrit 31.7 VOL% (42.0-52.0); Hemoglobin 9.9 GM/DL (14.0-18.0); Immature Granulocytes % 0.2 %; Immature Granulocytes Absolute 0.02 #; Lymphocytes % 21.3 % (21.2-54.2); Mean Corpuscular HGB Conc 31.2 GM/DL (32-36); Mean Corpuscular Hemoglobin 29 PG (27-34); Mean Corpuscular Volume 91.6 FL (87-102); Mean Platelet Volume 11.6 FL (9.6-12.0); Monocytes # 0.8 10*3/uL (0.11-0.8); Monocytes % 8.4 % (1.7-12.7); Neutrophils # 6.2 10*3/uL (1.4-7.4); Neutrophils % 66.3 % (38.7-73.9); Platelet Count 202 T/CUMM (130-400); Red Blood Count 3.46 MC/CUMM (3.8-5.5); Red Cell Distribution Width 13.2 % (9.3-17.3); White Blood Count 9.3 T/CUMM (4-12)
[2018-07-01 04:13] LABS: Calcium 7.7 MG/DL (8.5-10.1); Osmolality,Calculated 283.5 MOS/KG (273-304); Potassium 4.2 MMOL/L (3.5-5.1)
[2018-07-01] MEDS: GLIMEPIRIDE 2 MG TABLET PO SCH (05:57)
[2018-07-01] MEDS: POTASSIUM CHLORIDE 20 MEQ TABLET PO SCH ×2 (05:57→17:03)
[2018-07-01] MEDS: ALBUTEROL/IPRATROPIUM 3 ML NEB RESP TX SCH ×2 (07:15→19:14)
[2018-07-01] MEDS: INSULIN REGULAR 100 UNIT/ML SUBCUT SCH ×4 (07:36→21:53)
[2018-07-01] MEDS: INSULIN NPH 100 UNIT/ML SUBCUT SCH (08:58)
[2018-07-01] MEDS: DILTIAZEM CD 180 MG CAPSULE PO SCH (08:59)
[2018-07-01] MEDS: NEBIVOLOL 10 MG TABLET PO SCH (08:59)
[2018-07-01] MEDS: ISOSORBIDE DINITRATE 10 MG TABLET PO SCH (09:00)
[2018-07-01] MEDS: PANTOPRAZOLE 40 MG TABLET PO SCH (09:01)
[2018-07-01] MEDS: amLODIPine 5 MG TABLET PO SCH (09:01)
[2018-07-01] MEDS: PHENYTOIN ER 100 MG CAPSULE PO SCH ×2 (09:01→21:52)
[2018-07-01] MEDS: ASPIRIN EC 81 MG TABLET PO SCH (09:01)
[2018-07-01] MEDS: DOCUSATE SODIUM 100 MG CAPSULE PO SCH ×2 (09:01→21:52)
[2018-07-01] MEDS: CITALOPRAM 20 MG TABLET PO SCH (09:01)
[2018-07-01] MEDS: BACLOFEN 10 MG TABLET PO SCH ×4 (09:01→21:52)
[2018-07-01] MEDS: LIDOCAINE 5% PATCH TRANSDERM SCH (09:02)
[2018-07-01] MEDS: POLYETHYLENE GLYCOL POWDER 17 GM PACK PO SCH (09:02)
[2018-07-01] MEDS: SODIUM CHLORIDE 0.45% 1,000 ML IV SCH (09:10)
[2018-07-01] MEDS: SKIN HEALING OINT (AQUAPHOR) 50 GM TUBE TOP SCH (09:10)
[2018-07-01] MEDS: FUROSEMIDE 40 MG/4 ML VIAL IV SCH (09:13)
[2018-07-01] MEDS: cloNIDine 0.1 MG TABLET PO SCH (12:09)
[2018-07-01] MEDS: INSULIN GLARGINE 100 UNIT/ML SUBCUT SCH (15:58)
[2018-07-01] MEDS: cefTRIAXone 500 MG in SYRINGE 1 EACH IV SCH (17:02)
[2018-07-02 05:24] LABS: Basophils # 0.1 10*3/uL (0.0-0.2); Basophils % 0.8 % (0.0-0.8); Eosinophils # 0.3 10*3/uL (0.0-0.87); Eosinophils % 2.7 % (0.00-10.9); Hematocrit 34.8 VOL% (42.0-52.0); Hemoglobin 10.7 GM/DL (14.0-18.0); Immature Granulocytes % 0.3 %; Immature Granulocytes Absolute 0.03 #; Lymphocytes % 21.4 % (21.2-54.2); Mean Corpuscular HGB Conc 30.7 GM/DL (32-36); Mean Corpuscular Hemoglobin 28 PG (27-34); Mean Corpuscular Volume 91.3 FL (87-102); Mean Platelet Volume 11.4 FL (9.6-12.0); Monocytes # 0.9 10*3/uL (0.11-0.8); Monocytes % 9.9 % (1.7-12.7); Neutrophils % 64.9 % (38.7-73.9); Platelet Count 217 T/CUMM (130-400); Red Blood Count 3.81 MC/CUMM (3.8-5.5); Red Cell Distribution Width 13.2 % (9.3-17.3); White Blood Count 9.3 T/CUMM (4-12)
[2018-07-02 05:52] LABS: Calcium 8.2 MG/DL (8.5-10.1); Osmolality,Calculated 284.5 MOS/KG (273-304); Potassium 4.2 MMOL/L (3.5-5.1)
[2018-07-02] MEDS: SODIUM CHLORIDE 0.45% 1,000 ML IV SCH (06:00)
[2018-07-02] MEDS: POTASSIUM CHLORIDE 20 MEQ TABLET PO SCH ×2 (06:22→17:07)
[2018-07-02] MEDS: GLIMEPIRIDE 2 MG TABLET PO SCH (06:22)
[2018-07-02] MEDS: ALBUTEROL/IPRATROPIUM 3 ML NEB RESP TX SCH ×2 (06:51→19:00)
[2018-07-02] MEDS: INSULIN NPH 100 UNIT/ML SUBCUT SCH (09:27)
[2018-07-02] MEDS: INSULIN REGULAR 100 UNIT/ML SUBCUT SCH ×4 (09:27→20:57)
[2018-07-02] MEDS: LIDOCAINE 5% PATCH TRANSDERM SCH (09:27)
[2018-07-02] MEDS: PANTOPRAZOLE 40 MG TABLET PO SCH (09:28)
[2018-07-02] MEDS: POLYETHYLENE GLYCOL POWDER 17 GM PACK PO SCH (09:28)
[2018-07-02] MEDS: ISOSORBIDE DINITRATE 20 MG TABLET PO SCH (09:28)
[2018-07-02] MEDS: FUROSEMIDE 40 MG/4 ML VIAL IV SCH (09:28)
[2018-07-02] MEDS: NEBIVOLOL 10 MG TABLET PO SCH (09:29)
[2018-07-02] MEDS: DILTIAZEM CD 180 MG CAPSULE PO SCH (09:29)
[2018-07-02] MEDS: PHENYTOIN ER 100 MG CAPSULE PO SCH ×2 (09:30→20:56)
[2018-07-02] MEDS: SKIN HEALING OINT (AQUAPHOR) 50 GM TUBE TOP SCH (09:30)
[2018-07-02] MEDS: CITALOPRAM 20 MG TABLET PO SCH (09:30)
[2018-07-02] MEDS: DOCUSATE SODIUM 100 MG CAPSULE PO SCH ×2 (09:30→20:56)
[2018-07-02] MEDS: ASPIRIN EC 81 MG TABLET PO SCH (09:30)
[2018-07-02] MEDS: BACLOFEN 10 MG TABLET PO SCH ×3 (09:30→20:56)
[2018-07-02] MEDS ORDERED: FUROSEMIDE 40 MG/4 ML VIAL IV ONE (13:03)
[2018-07-02] MEDS: DOXAZOSIN 1 MG TABLET PO SCH (13:23)
[2018-07-02] MEDS: cloNIDine 0.1 MG TABLET PO SCH (13:23)
[2018-07-02] MEDS: cefTRIAXone 500 MG in SYRINGE 1 EACH IV SCH (17:05)
[2018-07-02] MEDS: INSULIN GLARGINE 100 UNIT/ML SUBCUT SCH (17:07)
[2018-07-03] MEDS: GLIMEPIRIDE 2 MG TABLET PO SCH (06:14)
[2018-07-03] MEDS: POTASSIUM CHLORIDE 20 MEQ TABLET PO SCH ×2 (06:14→18:14)
[2018-07-03] MEDS: ALBUTEROL/IPRATROPIUM 3 ML NEB RESP TX SCH ×2 (07:11→19:02)
[2018-07-03] MEDS: FUROSEMIDE 40 MG/4 ML VIAL IV SCH (08:47)
[2018-07-03] MEDS: ACETAMINOPHEN/CODEINE 300-30 MG TABLET PO SCH ×3 (08:47→20:30)
[2018-07-03] MEDS: PANTOPRAZOLE 40 MG TABLET PO SCH (08:47)
[2018-07-03] MEDS: DOCUSATE SODIUM 100 MG CAPSULE PO SCH ×2 (08:47→20:47)
[2018-07-03] MEDS: PHENYTOIN ER 100 MG CAPSULE PO SCH ×2 (08:47→20:48)
[2018-07-03] MEDS: BACLOFEN 10 MG TABLET PO SCH ×3 (08:48→20:49)
[2018-07-03] MEDS: NEBIVOLOL 10 MG TABLET PO SCH (08:48)
[2018-07-03] MEDS: CITALOPRAM 20 MG TABLET PO SCH (08:48)
[2018-07-03] MEDS: DILTIAZEM CD 180 MG CAPSULE PO SCH (08:48)
[2018-07-03] MEDS: ASPIRIN EC 81 MG TABLET PO SCH (08:48)
[2018-07-03] MEDS: ISOSORBIDE DINITRATE 20 MG TABLET PO SCH (08:48)
[2018-07-03] MEDS: INSULIN NPH 100 UNIT/ML SUBCUT SCH (08:52)
[2018-07-03] MEDS: LIDOCAINE 5% PATCH TRANSDERM SCH ×2 (08:53→10:02)
[2018-07-03] MEDS: POLYETHYLENE GLYCOL POWDER 17 GM PACK PO SCH (08:53)
[2018-07-03] MEDS: SKIN HEALING OINT (AQUAPHOR) 50 GM TUBE TOP SCH (08:53)
[2018-07-03 09:10] LABS: Calcium 8.3 MG/DL (8.5-10.1); Osmolality,Calculated 280.5 MOS/KG (273-304); Potassium 4.3 MMOL/L (3.5-5.1)
[2018-07-03] MEDS: INSULIN REGULAR 100 UNIT/ML SUBCUT SCH ×4 (09:46→20:49)
[2018-07-03] MEDS: cloNIDine 0.1 MG TABLET PO SCH (13:58)
[2018-07-03] MEDS: DOXAZOSIN 1 MG TABLET PO SCH (13:58)
[2018-07-03] MEDS ORDERED: SODIUM PHOSPHATE ENEMA 133 ML BOTTLE RECTAL ONE (14:31)
[2018-07-03] MEDS ORDERED: MAGNESIUM HYDROXIDE SUSP 30 ML UDCUP PO PRN (14:32)
[2018-07-03] MEDS: INSULIN GLARGINE 100 UNIT/ML SUBCUT SCH (18:14)
[2018-07-03] MEDS: cefTRIAXone 500 MG in SYRINGE 1 EACH IV SCH (18:19)
[2018-07-04] MEDS: ACETAMINOPHEN/CODEINE 300-30 MG TABLET PO SCH ×3 (02:04→13:34)
[2018-07-04] MEDS: POTASSIUM CHLORIDE 20 MEQ TABLET PO SCH ×2 (04:53→17:00)
[2018-07-04 05:41] LABS: Calcium 8.1 MG/DL (8.5-10.1); Osmolality,Calculated 289.3 MOS/KG (273-304); Potassium 4.4 MMOL/L (3.5-5.1)
[2018-07-04] MEDS: GLIMEPIRIDE 2 MG TABLET PO SCH (06:21)
[2018-07-04 06:29] LABS: Apearance,Urine Slightly Hazy (Clear); Bacteria,Urine Occasional /HPF (Few); Bilirubin,Urine Negative (Negative); Blood, Urine Moderate mg/dL (Negative); Glucose,Urine (UA) Negative (Negative); Hyaline Casts,Urine 1 /LPF (0-3); Ketones,Urine Negative (Negative); Mucus,Urine Occasional /LPF (Occasional); Nitrite,Urine Negative (Negative); Protein,Urine 100 MG/DL; RBC,Urine 125 /HPF (0-4); Squamous Epithelial Cell,Urine Occasional /HPF (0-10); Urine Color Yellow (Yellow); Urine Specific Gravity 1.012 (1.001-1.035); Urine Urobilinogen < 2.0 EU/DL (0.2-1.0); WBC,Urine 34 /HPF (0-6)
[2018-07-04] MEDS: ALBUTEROL/IPRATROPIUM 3 ML NEB RESP TX SCH (06:55)
[2018-07-04] MEDS: INSULIN REGULAR 100 UNIT/ML SUBCUT SCH ×3 (08:17→16:11)
[2018-07-04] MEDS: NEBIVOLOL 10 MG TABLET PO SCH (08:55)
[2018-07-04] MEDS: ASPIRIN EC 81 MG TABLET PO SCH (08:55)
[2018-07-04] MEDS: PANTOPRAZOLE 40 MG TABLET PO SCH (08:55)
[2018-07-04] MEDS: ISOSORBIDE DINITRATE 20 MG TABLET PO SCH (08:55)
[2018-07-04] MEDS: CITALOPRAM 20 MG TABLET PO SCH (08:55)
[2018-07-04] MEDS: POLYETHYLENE GLYCOL POWDER 17 GM PACK PO SCH (08:55)
[2018-07-04] MEDS: PHENYTOIN ER 100 MG CAPSULE PO SCH (08:56)
[2018-07-04] MEDS: DOCUSATE SODIUM 100 MG CAPSULE PO SCH (08:56)
[2018-07-04] MEDS: DILTIAZEM CD 180 MG CAPSULE PO SCH (08:56)
[2018-07-04] MEDS: INSULIN NPH 100 UNIT/ML SUBCUT SCH (08:56)
[2018-07-04] MEDS: BACLOFEN 10 MG TABLET PO SCH ×2 (08:56→17:00)
[2018-07-04] MEDS: SKIN HEALING OINT (AQUAPHOR) 50 GM TUBE TOP SCH (08:56)
[2018-07-04] MEDS: LIDOCAINE 5% PATCH TRANSDERM SCH (08:57)
[2018-07-04] MEDS: FUROSEMIDE 40 MG/4 ML VIAL IV SCH (08:57)
[2018-07-04] MEDS ORDERED: CYANOCOBALAMIN 1000 MCG/1 ML VIAL IM ONE (09:00)
[2018-07-04] MEDS ORDERED: NYSTATIN POWDER 15 GM BOTTLE TOP SCH (10:30)
[2018-07-04] MEDS ORDERED: NYSTATIN CREAM 15 GM TUBE TOP SCH (10:30)
[2018-07-04] MEDS: cloNIDine 0.1 MG TABLET PO SCH (13:34)
[2018-07-04] MEDS: DOXAZOSIN 1 MG TABLET PO SCH (13:34)
[2018-07-04] MEDS ORDERED: ALBUTEROL/IPRATROPIUM 3 ML NEB RESP TX ONE (13:37)
[2018-07-04 16:28] VITALS: BP 126/66
[2018-07-04] MEDS: cefTRIAXone 500 MG in SYRINGE 1 EACH IV SCH (16:59)
[2018-07-04] MEDS: INSULIN GLARGINE 100 UNIT/ML SUBCUT SCH (17:00)
== END 2018-07-04 18:40 | DRG 555 ==
LOC: N.ED 09:36 → N.EDINP 12:06 → N.5E 14:04
PROVIDERS: ADMIT Internal Medicine; ATTEND Internal Medicine

== ENCOUNTER 2019-01-30 17:24 | Inpatient (IN) ==
[2019-01-30] MEDS ORDERED: ACETAMINOPHEN 500 MG TABLET PO STA (17:59)
[2019-01-30] MEDS ORDERED: CEFEPIME 2,000 MG in SODIUM CHLORIDE 0.9% 100 ML IV STA (17:59)
[2019-01-30] MEDS ORDERED: SODIUM CHLORIDE 0.9% 1,000 ML IV STA (17:59)
[2019-01-30] MEDS ORDERED: VANCOMYCIN INJ 1,750 MG in SODIUM CHLORIDE 0.9% 250 ML IV STA (17:59)
[2019-01-30] MEDS ORDERED: KETOROLAC 30 MG/1 ML VIAL IV STA (18:01)
[2019-01-30 18:46] LABS: Basophils # 0.1 10*3/uL (0.0-0.2); Basophils % 0.4 % (0.0-0.8); Eosinophils % 0.1 % (0.00-10.9); Hematocrit 36.4 VOL% (42.0-52.0); Hemoglobin 11.4 GM/DL (14.0-18.0); Immature Granulocytes % 0.6 %; Lymphocytes # 0.7 10*3/uL (1.4-4.0); Lymphocytes % 4.6 % (21.2-54.2); Mean Corpuscular HGB Conc 31.3 GM/DL (32-36); Mean Corpuscular Volume 89.7 FL (87-102); Mean Platelet Volume 12.3 FL (9.6-12.0); Neutrophils % 87.3 % (38.7-73.9); Platelet Count 189 T/CUMM (130-400); Red Blood Count 4.06 MC/CUMM (3.8-5.5); Red Cell Distribution Width 14.1 % (9.3-17.3); White Blood Count 15.5 T/CUMM (4-12)
[2019-01-30 19:05] LABS: Alanine Aminotransferase 32 U/L (16-61); Albumin 3.6 G/DL (3.4-5.0); Alkaline Phosphatase 99 U/L (45-117); Aspartate Amino Transferase 25 U/L (0-37); Blood Urea Nitrogen 20 MG/DL (7-18); Calcium 8.2 MG/DL (8.5-10.1); Glucose 156 MG/DL (74-106); Osmolality,Calculated 280.7 MOS/KG (273-304); Total Protein 7.7 G/DL (6.4-8.3)
[2019-01-30 19:13] LABS: Apearance,Urine Slightly Hazy (Clear); Bacteria,Urine Moderate /HPF (Few); Bilirubin,Urine Negative (Negative); Blood, Urine Small mg/dL (Negative); Calcium Oxalate Crystals,Urine Occasional /HPF (Few); Glucose,Urine (UA) Negative (Negative); Hyaline Casts,Urine 3 /LPF (0-3); Ketones,Urine Negative (Negative); Mucus,Urine Occasional /LPF (Occasional); Nitrite,Urine Positive (Negative); Protein,Urine 100 MG/DL; RBC,Urine 57 /HPF (0-4); Squamous Epithelial Cell,Urine Occasional /HPF (0-10); Urine Color Yellow (Yellow); Urine Specific Gravity 1.009 (1.001-1.035); Urine Urobilinogen < 2.0 EU/DL (0.2-1.0); WBC,Urine 56 /HPF (0-6)
[2019-01-30 19:22] LABS: Lymphocytes 4 % (20-55); Segmented Neutrophils 90 % (50-85); Total Cells Counted 100
[2019-01-30 19:23] LABS: Platelet Estimate Adequate
[2019-01-30 19:24] LABS: Polychromasia Few
[2019-01-30] MEDS ORDERED: ONDANSETRON 4 MG/2 ML VIAL IV PRN (21:00)
[2019-01-30] MEDS ORDERED: ACETAMINOPHEN 325 MG TABLET PO PRN (21:00)
[2019-01-30] MEDS: DEXTROSE 5% NACL 0.9% 1,000 ML IV SCH (22:55)
[2019-01-31] MEDS: POTASSIUM CHLORIDE 20 MEQ TABLET PO SCH ×3 (00:38→21:38)
[2019-01-31] MEDS: PHENYTOIN ER 100 MG CAPSULE PO SCH ×3 (00:38→21:38)
[2019-01-31] MEDS: CEFEPIME 1,000 MG in SYRINGE 1 EACH IV SCH ×3 (02:38→21:37)
[2019-01-31 05:45] LABS: Basophils # 0.1 10*3/uL (0.0-0.2); Basophils % 0.5 % (0.0-0.8); Hematocrit 34.9 VOL% (42.0-52.0); Hemoglobin 10.8 GM/DL (14.0-18.0); Immature Granulocytes % 0.8 %; Immature Granulocytes Absolute 0.16 #; Lymphocytes # 0.9 10*3/uL (1.4-4.0); Lymphocytes % 4.6 % (21.2-54.2); Mean Corpuscular HGB Conc 30.9 GM/DL (32-36); Mean Corpuscular Volume 90.6 FL (87-102); Mean Platelet Volume 11.6 FL (9.6-12.0); Neutrophils % 89.1 % (38.7-73.9); Platelet Count 164 T/CUMM (130-400); Red Blood Count 3.85 MC/CUMM (3.8-5.5); Red Cell Distribution Width 14.5 % (9.3-17.3); White Blood Count 19.4 T/CUMM (4-12)
[2019-01-31 06:10] LABS: Anisocytosis 1+; Band Neutrophils 28 % (0-10); Lymphocytes 6 % (20-55); Platelet Estimate Normal; Poikilocytosis 1+; Segmented Neutrophils 64 % (50-85); Total Cells Counted 100
[2019-01-31 06:12] LABS: Calcium 8.3 MG/DL (8.5-10.1); Osmolality,Calculated 281.5 MOS/KG (273-304)
[2019-01-31] MEDS ORDERED: FUROSEMIDE 40 MG/4 ML VIAL IV ONE (06:31)
[2019-01-31] MEDS: ALBUTEROL/IPRATROPIUM 3 ML NEB RESP TX SCH ×2 (06:35→19:44)
[2019-01-31] MEDS: methylPREDNISolone SOD SUC 125 MG/2 ML VIAL IV SCH ×3 (06:47→21:37)
[2019-01-31] MEDS: ALBUTEROL/IPRATROPIUM 3 ML NEB RESP TX PRN (07:32)
[2019-01-31] MEDS: BUDESONIDE 0.25 MG/2 ML NEB RESP TX SCH ×2 (07:32→19:44)
[2019-01-31] MEDS ORDERED: FUROSEMIDE 80 MG TABLET PO SCH (09:00)
[2019-01-31] MEDS: CITALOPRAM 20 MG TABLET PO SCH (09:14)
[2019-01-31] MEDS: ISOSORBIDE DINITRATE 10 MG TABLET PO SCH (09:14)
[2019-01-31] MEDS: BACLOFEN 10 MG TABLET PO SCH ×3 (09:15→21:38)
[2019-01-31] MEDS: DILTIAZEM 90 MG TABLET PO SCH (09:15)
[2019-01-31] MEDS: DOCUSATE SODIUM 100 MG CAPSULE PO SCH ×2 (09:16→21:38)
[2019-01-31] MEDS: ASPIRIN EC 81 MG TABLET PO SCH (09:16)
[2019-01-31] MEDS: NEBIVOLOL 10 MG TABLET PO SCH (09:17)
[2019-01-31] MEDS: CLOPIDOGREL 75 MG TABLET PO SCH (09:17)
[2019-01-31] MEDS: GLIMEPIRIDE 4 MG TABLET PO SCH (09:17)
[2019-01-31] MEDS: amLODIPine 5 MG TABLET PO SCH (09:17)
[2019-01-31] MEDS: INSULIN NPH 100 UNIT/ML SUBCUT SCH (09:18)
[2019-01-31] MEDS: POLYETHYLENE GLYCOL POWDER 17 GM PACK PO SCH (09:18)
[2019-01-31] MEDS: LIDOCAINE 5% PATCH TRANSDERM SCH (09:19)
[2019-01-31] MEDS: FUROSEMIDE 40 MG/4 ML VIAL IV SCH ×2 (09:22→16:50)
[2019-01-31] MEDS: INSULIN REGULAR 100 UNIT/ML SUBCUT SCH ×4 (09:22→22:03)
[2019-01-31] MEDS: MOISTURIZING CREAM (EUCERIN) 106 GM JAR TOP SCH ×4 (09:30→21:43)
[2019-01-31] MEDS: DEXTROSE 5% NACL 0.9% 1,000 ML IV SCH (10:43)
[2019-01-31] MEDS: DOXAZOSIN 1 MG TABLET PO SCH (12:43)
[2019-01-31] MEDS: cloNIDine 0.1 MG TABLET PO SCH (12:44)
[2019-01-31] MEDS: VANCOMYCIN INJ 1,750 MG in SODIUM CHLORIDE 0.9% 500 ML IV SCH (16:56)
[2019-01-31] MEDS: INSULIN GLARGINE 100 UNIT/ML SUBCUT SCH (16:57)
[2019-01-31] MEDS: ZINC OXIDE PASTE 113 GM TUBE TOP SCH (21:38)
[2019-02-01] MEDS: CEFEPIME 1,000 MG in SYRINGE 1 EACH IV SCH ×3 (03:17→22:01)
[2019-02-01] MEDS: VANCOMYCIN INJ 1,750 MG in SODIUM CHLORIDE 0.9% 500 ML IV SCH ×2 (03:17→16:46)
[2019-02-01] MEDS: methylPREDNISolone SOD SUC 125 MG/2 ML VIAL IV SCH ×3 (06:13→22:01)
[2019-02-01 06:48] LABS: Basophils % 0.1 % (0.0-0.8); Hematocrit 33.3 VOL% (42.0-52.0); Hemoglobin 10.5 GM/DL (14.0-18.0); Immature Granulocytes % 0.8 %; Immature Granulocytes Absolute 0.13 #; Lymphocytes # 1.1 10*3/uL (1.4-4.0); Lymphocytes % 6.9 % (21.2-54.2); Mean Corpuscular HGB Conc 31.5 GM/DL (32-36); Mean Corpuscular Volume 89.3 FL (87-102); Mean Platelet Volume 12.2 FL (9.6-12.0); Monocytes % 2.5 % (1.7-12.7); Neutrophils % 89.7 % (38.7-73.9); Platelet Count 159 T/CUMM (130-400); Red Blood Count 3.73 MC/CUMM (3.8-5.5); Red Cell Distribution Width 14.4 % (9.3-17.3); White Blood Count 15.5 T/CUMM (4-12)
[2019-02-01 07:26] LABS: Calcium 8.4 MG/DL (8.5-10.1)
[2019-02-01] MEDS: ALBUTEROL/IPRATROPIUM 3 ML NEB RESP TX SCH ×2 (07:42→20:00)
[2019-02-01] MEDS: BUDESONIDE 0.25 MG/2 ML NEB RESP TX SCH ×2 (07:43→20:00)
[2019-02-01] MEDS: LIDOCAINE 5% PATCH TRANSDERM SCH (09:55)
[2019-02-01] MEDS: DOCUSATE SODIUM 100 MG CAPSULE PO SCH ×2 (09:56→22:02)
[2019-02-01] MEDS: PHENYTOIN ER 100 MG CAPSULE PO SCH ×2 (09:56→22:02)
[2019-02-01] MEDS: CLOPIDOGREL 75 MG TABLET PO SCH (09:56)
[2019-02-01] MEDS: DILTIAZEM 90 MG TABLET PO SCH (09:57)
[2019-02-01] MEDS: ISOSORBIDE DINITRATE 10 MG TABLET PO SCH (09:57)
[2019-02-01] MEDS: GLIMEPIRIDE 4 MG TABLET PO SCH (09:57)
[2019-02-01] MEDS: POTASSIUM CHLORIDE 20 MEQ TABLET PO SCH ×2 (09:57→22:02)
[2019-02-01] MEDS: CITALOPRAM 20 MG TABLET PO SCH (09:58)
[2019-02-01] MEDS: NEBIVOLOL 10 MG TABLET PO SCH (09:58)
[2019-02-01] MEDS: amLODIPine 5 MG TABLET PO SCH (09:58)
[2019-02-01] MEDS: ASPIRIN EC 81 MG TABLET PO SCH (09:59)
[2019-02-01] MEDS: BACLOFEN 10 MG TABLET PO SCH ×3 (09:59→22:02)
[2019-02-01] MEDS: INSULIN REGULAR 100 UNIT/ML SUBCUT SCH ×4 (10:00→22:02)
[2019-02-01] MEDS: INSULIN NPH 100 UNIT/ML SUBCUT SCH (10:00)
[2019-02-01] MEDS: FUROSEMIDE 40 MG/4 ML VIAL IV SCH ×2 (10:00→16:45)
[2019-02-01] MEDS: POLYETHYLENE GLYCOL POWDER 17 GM PACK PO SCH (10:01)
[2019-02-01] MEDS: ZINC OXIDE PASTE 113 GM TUBE TOP SCH ×2 (10:01→22:03)
[2019-02-01] MEDS: MOISTURIZING CREAM (EUCERIN) 106 GM JAR TOP SCH ×4 (10:01→22:03)
[2019-02-01 12:13] LABS: Lymphocytes 4 % (20-55); Platelet Estimate Adequate; Polychromasia Slight; Segmented Neutrophils 94 % (50-85); Total Cells Counted 100
[2019-02-01] MEDS: cloNIDine 0.1 MG TABLET PO SCH (12:49)
[2019-02-01] MEDS: DOXAZOSIN 1 MG TABLET PO SCH (12:49)
[2019-02-01] MEDS: INSULIN GLARGINE 100 UNIT/ML SUBCUT SCH (16:44)
[2019-02-02] MEDS: VANCOMYCIN INJ 1,750 MG in SODIUM CHLORIDE 0.9% 500 ML IV SCH (02:53)
[2019-02-02] MEDS: CEFEPIME 1,000 MG in SYRINGE 1 EACH IV SCH ×3 (02:54→20:11)
[2019-02-02 03:04] LABS: Basophils % 0.2 % (0.0-0.8); Hematocrit 33.2 VOL% (42.0-52.0); Hemoglobin 10.2 GM/DL (14.0-18.0); Immature Granulocytes % 0.9 %; Immature Granulocytes Absolute 0.12 #; Lymphocytes # 0.9 10*3/uL (1.4-4.0); Lymphocytes % 6.8 % (21.2-54.2); Mean Corpuscular HGB Conc 30.7 GM/DL (32-36); Mean Corpuscular Volume 90.2 FL (87-102); Mean Platelet Volume 11.6 FL (9.6-12.0); Neutrophils % 89.1 % (38.7-73.9); Platelet Count 166 T/CUMM (130-400); Red Blood Count 3.68 MC/CUMM (3.8-5.5); Red Cell Distribution Width 14.2 % (9.3-17.3); White Blood Count 13.6 T/CUMM (4-12)
[2019-02-02 03:36] LABS: Osmolality,Calculated 289.2 MOS/KG (273-304)
[2019-02-02] MEDS: methylPREDNISolone SOD SUC 125 MG/2 ML VIAL IV SCH (06:16)
[2019-02-02] MEDS: BUDESONIDE 0.25 MG/2 ML NEB RESP TX SCH ×2 (07:05→19:08)
[2019-02-02] MEDS: ALBUTEROL/IPRATROPIUM 3 ML NEB RESP TX SCH ×2 (07:05→19:08)
[2019-02-02] MEDS: LIDOCAINE 5% PATCH TRANSDERM SCH (09:47)
[2019-02-02] MEDS: INSULIN NPH 100 UNIT/ML SUBCUT SCH (09:48)
[2019-02-02] MEDS: INSULIN REGULAR 100 UNIT/ML SUBCUT SCH ×4 (09:48→22:00)
[2019-02-02] MEDS: MOISTURIZING CREAM (EUCERIN) 106 GM JAR TOP SCH ×4 (09:49→20:12)
[2019-02-02] MEDS: POLYETHYLENE GLYCOL POWDER 17 GM PACK PO SCH (09:49)
[2019-02-02] MEDS: ZINC OXIDE PASTE 113 GM TUBE TOP SCH ×2 (09:49→20:12)
[2019-02-02] MEDS: ISOSORBIDE DINITRATE 10 MG TABLET PO SCH (09:50)
[2019-02-02] MEDS: NEBIVOLOL 10 MG TABLET PO SCH (09:51)
[2019-02-02] MEDS: DILTIAZEM 90 MG TABLET PO SCH (09:51)
[2019-02-02] MEDS: amLODIPine 5 MG TABLET PO SCH (09:51)
[2019-02-02] MEDS: ASPIRIN EC 81 MG TABLET PO SCH (09:51)
[2019-02-02] MEDS: BACLOFEN 10 MG TABLET PO SCH ×3 (09:51→20:11)
[2019-02-02] MEDS: DOCUSATE SODIUM 100 MG CAPSULE PO SCH ×2 (09:52→20:12)
[2019-02-02] MEDS: GLIMEPIRIDE 4 MG TABLET PO SCH (09:52)
[2019-02-02] MEDS: CLOPIDOGREL 75 MG TABLET PO SCH (09:52)
[2019-02-02] MEDS: PHENYTOIN ER 100 MG CAPSULE PO SCH ×2 (09:52→20:11)
[2019-02-02] MEDS: FUROSEMIDE 40 MG/4 ML VIAL IV SCH ×2 (09:52→17:23)
[2019-02-02] MEDS: CITALOPRAM 20 MG TABLET PO SCH (09:52)
[2019-02-02] MEDS: POTASSIUM CHLORIDE 20 MEQ TABLET PO SCH ×2 (09:52→20:12)
[2019-02-02] MEDS ORDERED: BISACODYL 10 MG SUPP RECTAL PRN (11:13)
[2019-02-02] MEDS: cloNIDine 0.1 MG TABLET PO SCH (14:04)
[2019-02-02] MEDS: methylPREDNISolone SOD SUC 40 MG/1 ML VIAL IV SCH ×2 (14:04→22:01)
[2019-02-02] MEDS: DOXAZOSIN 1 MG TABLET PO SCH (14:04)
[2019-02-02] MEDS: MAGNESIUM HYDROXIDE SUSP 30 ML UDCUP PO PRN (14:07)
[2019-02-02] MEDS: INSULIN GLARGINE 100 UNIT/ML SUBCUT SCH (17:26)
[2019-02-03] MEDS: CEFEPIME 1,000 MG in SYRINGE 1 EACH IV SCH ×3 (03:33→19:22)
[2019-02-03 04:47] LABS: Basophils % 0.1 % (0.0-0.8); Hematocrit 33.6 VOL% (42.0-52.0); Hemoglobin 10.9 GM/DL (14.0-18.0); Immature Granulocytes Absolute 0.16 #; Lymphocytes # 0.7 10*3/uL (1.4-4.0); Lymphocytes % 4.5 % (21.2-54.2); Mean Corpuscular HGB Conc 32.4 GM/DL (32-36); Mean Corpuscular Volume 87.5 FL (87-102); Mean Platelet Volume 12.2 FL (9.6-12.0); Monocytes % 7.1 % (1.7-12.7); Neutrophils % 87.3 % (38.7-73.9); Platelet Count 187 T/CUMM (130-400); Red Blood Count 3.84 MC/CUMM (3.8-5.5); Red Cell Distribution Width 14.1 % (9.3-17.3); White Blood Count 16.2 T/CUMM (4-12)
[2019-02-03 05:04] LABS: Calcium 8.2 MG/DL (8.5-10.1); Osmolality,Calculated 287.1 MOS/KG (273-304)
[2019-02-03 05:21] LABS: Lymphocytes 7 % (20-55); Segmented Neutrophils 90 % (50-85); Total Cells Counted 100
[2019-02-03 05:22] LABS: Anisocytosis Slight; Microcytosis Slight
[2019-02-03 05:23] LABS: Burr Cells Few
[2019-02-03 05:24] LABS: Platelet Estimate Normal; Spherocytes Slight
[2019-02-03] MEDS: methylPREDNISolone SOD SUC 40 MG/1 ML VIAL IV SCH ×3 (06:03→22:09)
[2019-02-03] MEDS: ALBUTEROL/IPRATROPIUM 3 ML NEB RESP TX SCH ×2 (07:36→19:56)
[2019-02-03] MEDS: BUDESONIDE 0.25 MG/2 ML NEB RESP TX SCH ×2 (07:37→19:56)
[2019-02-03] MEDS: INSULIN NPH 100 UNIT/ML SUBCUT SCH (08:02)
[2019-02-03] MEDS: FUROSEMIDE 40 MG/4 ML VIAL IV SCH ×2 (08:02→15:19)
[2019-02-03] MEDS: POLYETHYLENE GLYCOL POWDER 17 GM PACK PO SCH (08:03)
[2019-02-03] MEDS: CITALOPRAM 20 MG TABLET PO SCH (08:03)
[2019-02-03] MEDS: PHENYTOIN ER 100 MG CAPSULE PO SCH ×2 (08:03→22:09)
[2019-02-03] MEDS: amLODIPine 5 MG TABLET PO SCH (08:03)
[2019-02-03] MEDS: INSULIN REGULAR 100 UNIT/ML SUBCUT SCH ×4 (08:03→22:10)
[2019-02-03] MEDS: DOCUSATE SODIUM 100 MG CAPSULE PO SCH ×2 (08:03→22:09)
[2019-02-03] MEDS: BACLOFEN 10 MG TABLET PO SCH ×3 (08:04→22:09)
[2019-02-03] MEDS: NEBIVOLOL 10 MG TABLET PO SCH (08:04)
[2019-02-03] MEDS: DILTIAZEM 90 MG TABLET PO SCH (08:04)
[2019-02-03] MEDS: CLOPIDOGREL 75 MG TABLET PO SCH (08:04)
[2019-02-03] MEDS: ASPIRIN EC 81 MG TABLET PO SCH (08:04)
[2019-02-03] MEDS: ISOSORBIDE DINITRATE 10 MG TABLET PO SCH (08:04)
[2019-02-03] MEDS: GLIMEPIRIDE 4 MG TABLET PO SCH (08:05)
[2019-02-03] MEDS: ZINC OXIDE PASTE 113 GM TUBE TOP SCH ×2 (08:13→22:10)
[2019-02-03] MEDS: MOISTURIZING CREAM (EUCERIN) 106 GM JAR TOP SCH ×4 (08:13→22:10)
[2019-02-03] MEDS: LIDOCAINE 5% PATCH TRANSDERM SCH (08:14)
[2019-02-03] MEDS: POTASSIUM CHLORIDE 20 MEQ TABLET PO SCH ×2 (08:14→22:09)
[2019-02-03] MEDS: cloNIDine 0.1 MG TABLET PO SCH (12:56)
[2019-02-03] MEDS: DOXAZOSIN 1 MG TABLET PO SCH (12:56)
[2019-02-03] MEDS: INSULIN GLARGINE 100 UNIT/ML SUBCUT SCH (17:20)
[2019-02-04] MEDS: CEFEPIME 1,000 MG in SYRINGE 1 EACH IV SCH (04:11)
[2019-02-04] MEDS: methylPREDNISolone SOD SUC 40 MG/1 ML VIAL IV SCH ×2 (06:50→22:59)
[2019-02-04] MEDS: ALBUTEROL/IPRATROPIUM 3 ML NEB RESP TX SCH ×2 (07:54→19:15)
[2019-02-04] MEDS: BUDESONIDE 0.25 MG/2 ML NEB RESP TX SCH ×2 (07:54→19:16)
[2019-02-04] MEDS: amLODIPine 5 MG TABLET PO SCH (08:36)
[2019-02-04] MEDS: NEBIVOLOL 10 MG TABLET PO SCH (08:36)
[2019-02-04] MEDS: FUROSEMIDE 40 MG/4 ML VIAL IV SCH (08:36)
[2019-02-04] MEDS: ISOSORBIDE DINITRATE 10 MG TABLET PO SCH (08:36)
[2019-02-04] MEDS: CITALOPRAM 20 MG TABLET PO SCH (08:37)
[2019-02-04] MEDS: CLOPIDOGREL 75 MG TABLET PO SCH (08:37)
[2019-02-04] MEDS: POTASSIUM CHLORIDE 20 MEQ TABLET PO SCH ×2 (08:37→22:58)
[2019-02-04] MEDS: ASPIRIN EC 81 MG TABLET PO SCH (08:37)
[2019-02-04] MEDS: DOCUSATE SODIUM 100 MG CAPSULE PO SCH ×2 (08:37→22:58)
[2019-02-04] MEDS: DILTIAZEM 90 MG TABLET PO SCH (08:37)
[2019-02-04] MEDS: PHENYTOIN ER 100 MG CAPSULE PO SCH ×2 (08:37→22:58)
[2019-02-04] MEDS: POLYETHYLENE GLYCOL POWDER 17 GM PACK PO SCH (08:37)
[2019-02-04] MEDS: GLIMEPIRIDE 4 MG TABLET PO SCH (08:37)
[2019-02-04] MEDS: MOISTURIZING CREAM (EUCERIN) 106 GM JAR TOP SCH ×4 (08:39→23:02)
[2019-02-04] MEDS: ZINC OXIDE PASTE 113 GM TUBE TOP SCH ×2 (08:39→23:02)
[2019-02-04] MEDS: LIDOCAINE 5% PATCH TRANSDERM SCH (08:40)
[2019-02-04] MEDS: BACLOFEN 10 MG TABLET PO SCH ×3 (08:40→22:58)
[2019-02-04] MEDS: cefTRIAXone 1,000 MG in SYRINGE 1 EACH IV SCH (08:46)
[2019-02-04] MEDS: INSULIN NPH 100 UNIT/ML SUBCUT SCH (08:46)
[2019-02-04] MEDS: INSULIN REGULAR 100 UNIT/ML SUBCUT SCH ×4 (08:46→19:47)
[2019-02-04] MEDS: DOXAZOSIN 1 MG TABLET PO SCH (12:50)
[2019-02-04] MEDS: cloNIDine 0.1 MG TABLET PO SCH (12:50)
[2019-02-04] MEDS: INSULIN GLARGINE 100 UNIT/ML SUBCUT SCH (16:40)
[2019-02-04] MEDS: MAGNESIUM HYDROXIDE SUSP 30 ML UDCUP PO PRN (22:58)
[2019-02-05 04:36] LABS: Basophils % 0.2 % (0.0-0.8); Eosinophils % 0.1 % (0.00-10.9); Hematocrit 36.3 VOL% (42.0-52.0); Hemoglobin 11.2 GM/DL (14.0-18.0); Immature Granulocytes % 1.3 %; Immature Granulocytes Absolute 0.23 #; Lymphocytes # 1.2 10*3/uL (1.4-4.0); Lymphocytes % 6.8 % (21.2-54.2); Mean Corpuscular HGB Conc 30.9 GM/DL (32-36); Mean Platelet Volume 11.5 FL (9.6-12.0); Monocytes % 6.2 % (1.7-12.7); Neutrophils % 85.4 % (38.7-73.9); Platelet Count 232 T/CUMM (130-400); Red Blood Count 4.08 MC/CUMM (3.8-5.5); Red Cell Distribution Width 14.3 % (9.3-17.3); White Blood Count 17.6 T/CUMM (4-12)
[2019-02-05 04:50] LABS: Calcium 8.4 MG/DL (8.5-10.1); Osmolality,Calculated 291.7 MOS/KG (273-304)
[2019-02-05] MEDS: BUDESONIDE 0.25 MG/2 ML NEB RESP TX SCH ×2 (07:10→19:45)
[2019-02-05] MEDS: ALBUTEROL/IPRATROPIUM 3 ML NEB RESP TX SCH ×2 (07:10→19:45)
[2019-02-05] MEDS ORDERED: SIMETHICONE CHEW 125 MG TABLET PO PRN (09:02)
[2019-02-05] MEDS: PANTOPRAZOLE 40 MG TABLET PO SCH (09:31)
[2019-02-05] MEDS: methylPREDNISolone SOD SUC 40 MG/1 ML VIAL IV SCH (09:32)
[2019-02-05] MEDS: cefTRIAXone 1,000 MG in SYRINGE 1 EACH IV SCH (09:32)
[2019-02-05] MEDS: LIDOCAINE 5% PATCH TRANSDERM SCH (09:33)
[2019-02-05] MEDS: INSULIN REGULAR 100 UNIT/ML SUBCUT SCH ×4 (09:34→20:21)
[2019-02-05] MEDS: INSULIN NPH 100 UNIT/ML SUBCUT SCH (09:34)
[2019-02-05] MEDS: CLOPIDOGREL 75 MG TABLET PO SCH (09:34)
[2019-02-05] MEDS: NEBIVOLOL 10 MG TABLET PO SCH (09:35)
[2019-02-05] MEDS: DILTIAZEM 90 MG TABLET PO SCH (09:35)
[2019-02-05] MEDS: ISOSORBIDE DINITRATE 10 MG TABLET PO SCH (09:35)
[2019-02-05] MEDS: POTASSIUM CHLORIDE 20 MEQ TABLET PO SCH ×2 (09:36→21:22)
[2019-02-05] MEDS: amLODIPine 5 MG TABLET PO SCH (09:36)
[2019-02-05] MEDS: CITALOPRAM 20 MG TABLET PO SCH (09:36)
[2019-02-05] MEDS: PHENYTOIN ER 100 MG CAPSULE PO SCH ×2 (09:36→21:22)
[2019-02-05] MEDS: FUROSEMIDE 40 MG TABLET PO SCH (09:36)
[2019-02-05] MEDS: GLIMEPIRIDE 4 MG TABLET PO SCH (09:36)
[2019-02-05] MEDS: BACLOFEN 10 MG TABLET PO SCH ×3 (09:36→21:22)
[2019-02-05] MEDS: ASPIRIN EC 81 MG TABLET PO SCH (09:36)
[2019-02-05] MEDS: DOCUSATE SODIUM 100 MG CAPSULE PO SCH ×2 (09:36→21:22)
[2019-02-05] MEDS: POLYETHYLENE GLYCOL POWDER 17 GM PACK PO SCH (09:37)
[2019-02-05] MEDS: ZINC OXIDE PASTE 113 GM TUBE TOP SCH ×2 (09:39→21:22)
[2019-02-05] MEDS: MOISTURIZING CREAM (EUCERIN) 106 GM JAR TOP SCH ×4 (09:39→21:22)
[2019-02-05] MEDS: cloNIDine 0.1 MG TABLET PO SCH (13:06)
[2019-02-05] MEDS: DOXAZOSIN 1 MG TABLET PO SCH (13:06)
[2019-02-05] MEDS: INSULIN GLARGINE 100 UNIT/ML SUBCUT SCH (16:43)
[2019-02-06 06:56] LABS: Basophils % 0.2 % (0.0-0.8); Eosinophils # 0.1 10*3/uL (0.0-0.87); Eosinophils % 0.5 % (0.00-10.9); Hematocrit 34.6 VOL% (42.0-52.0); Hemoglobin 10.9 GM/DL (14.0-18.0); Immature Granulocytes % 1.1 %; Immature Granulocytes Absolute 0.19 #; Lymphocytes # 1.9 10*3/uL (1.4-4.0); Lymphocytes % 11.3 % (21.2-54.2); Mean Corpuscular HGB Conc 31.5 GM/DL (32-36); Mean Corpuscular Volume 89.2 FL (87-102); Mean Platelet Volume 11.4 FL (9.6-12.0); Monocytes % 10.2 % (1.7-12.7); Neutrophils % 76.7 % (38.7-73.9); Platelet Count 226 T/CUMM (130-400); Red Blood Count 3.88 MC/CUMM (3.8-5.5); Red Cell Distribution Width 14.9 % (9.3-17.3); White Blood Count 16.6 T/CUMM (4-12)
[2019-02-06] MEDS: ALBUTEROL/IPRATROPIUM 3 ML NEB RESP TX SCH ×2 (07:03→19:55)
[2019-02-06] MEDS: BUDESONIDE 0.25 MG/2 ML NEB RESP TX SCH ×2 (07:03→20:04)
[2019-02-06 07:15] LABS: Calcium 8.3 MG/DL (8.5-10.1)
[2019-02-06] MEDS: LIDOCAINE 5% PATCH TRANSDERM SCH (09:54)
[2019-02-06] MEDS: NEBIVOLOL 10 MG TABLET PO SCH (09:58)
[2019-02-06] MEDS: MAGNESIUM HYDROXIDE SUSP 30 ML UDCUP PO PRN (09:58)
[2019-02-06] MEDS: amLODIPine 5 MG TABLET PO SCH (09:58)
[2019-02-06] MEDS: ISOSORBIDE DINITRATE 10 MG TABLET PO SCH (09:58)
[2019-02-06] MEDS: CLOPIDOGREL 75 MG TABLET PO SCH (09:58)
[2019-02-06] MEDS: POLYETHYLENE GLYCOL POWDER 17 GM PACK PO SCH (09:58)
[2019-02-06] MEDS: GLIMEPIRIDE 4 MG TABLET PO SCH (09:59)
[2019-02-06] MEDS: CITALOPRAM 20 MG TABLET PO SCH (09:59)
[2019-02-06] MEDS: predniSONE 20 MG TABLET PO SCH (09:59)
[2019-02-06] MEDS: FUROSEMIDE 40 MG TABLET PO SCH (09:59)
[2019-02-06] MEDS: BACLOFEN 10 MG TABLET PO SCH ×3 (09:59→20:38)
[2019-02-06] MEDS: DILTIAZEM 90 MG TABLET PO SCH (09:59)
[2019-02-06] MEDS: DOCUSATE SODIUM 100 MG CAPSULE PO SCH ×2 (09:59→20:37)
[2019-02-06] MEDS: POTASSIUM CHLORIDE 20 MEQ TABLET PO SCH ×2 (10:00→20:38)
[2019-02-06] MEDS: INSULIN NPH 100 UNIT/ML SUBCUT SCH (10:00)
[2019-02-06] MEDS: PANTOPRAZOLE 40 MG TABLET PO SCH (10:00)
[2019-02-06] MEDS: PHENYTOIN ER 100 MG CAPSULE PO SCH ×2 (10:00→20:37)
[2019-02-06] MEDS: ASPIRIN EC 81 MG TABLET PO SCH (10:01)
[2019-02-06] MEDS: cefTRIAXone 1,000 MG in SYRINGE 1 EACH IV SCH (10:01)
[2019-02-06] MEDS: MOISTURIZING CREAM (EUCERIN) 106 GM JAR TOP SCH ×4 (10:01→20:38)
[2019-02-06] MEDS: ZINC OXIDE PASTE 113 GM TUBE TOP SCH ×2 (10:01→20:38)
[2019-02-06] MEDS ORDERED: DEXTROSE 50% 25 GM/50 ML VIAL IV ONE (12:36)
[2019-02-06] MEDS: DEXTROSE 50% 25 GM/50 ML VIAL IV PRN ×2 (15:36→20:12)
[2019-02-06] MEDS: DEXTROSE 5% NACL 0.45% 1,000 ML IV SCH (16:25)
[2019-02-06] MEDS: INSULIN REGULAR 100 UNIT/ML SUBCUT SCH ×4 (16:50→20:37)
[2019-02-06] MEDS: cloNIDine 0.1 MG TABLET PO SCH (16:51)
[2019-02-06] MEDS: DOXAZOSIN 1 MG TABLET PO SCH (16:51)
[2019-02-06] MEDS: INSULIN GLARGINE 100 UNIT/ML SUBCUT SCH (16:52)
[2019-02-06] MEDS ORDERED: DEXTROSE 50% 25 GM/50 ML SYRINGE IV ONE (20:10)
[2019-02-07] MEDS: DEXTROSE 5% NACL 0.45% 1,000 ML IV SCH (00:53)
[2019-02-07 04:50] LABS: Basophils % 0.2 % (0.0-0.8); Eosinophils # 0.1 10*3/uL (0.0-0.87); Eosinophils % 0.6 % (0.00-10.9); Immature Granulocytes % 0.9 %; Lymphocytes # 1.9 10*3/uL (1.4-4.0); Lymphocytes % 8.2 % (21.2-54.2); Mean Corpuscular HGB Conc 31.4 GM/DL (32-36); Mean Corpuscular Volume 88.8 FL (87-102); Mean Platelet Volume 11.9 FL (9.6-12.0); Monocytes % 7.2 % (1.7-12.7); Neutrophils % 82.9 % (38.7-73.9); Platelet Count 230 T/CUMM (130-400); Red Blood Count 3.94 MC/CUMM (3.8-5.5); Red Cell Distribution Width 14.7 % (9.3-17.3); White Blood Count 22.7 T/CUMM (4-12)
[2019-02-07 05:23] LABS: Band Neutrophils 4 % (0-10); Lymphocytes 5 % (20-55); Platelet Estimate Normal; Segmented Neutrophils 87 % (50-85); Total Cells Counted 100
[2019-02-07 05:28] LABS: Bilirubin,Total 0.9 MG/DL (0.2-1.0); Calcium 8.6 MG/DL (8.5-10.1); Osmolality,Calculated 290.1 MOS/KG (273-304); Total Protein 6.8 G/DL (6.4-8.3)
[2019-02-07] MEDS: BUDESONIDE 0.25 MG/2 ML NEB RESP TX SCH ×2 (06:44→19:14)
[2019-02-07] MEDS: ALBUTEROL/IPRATROPIUM 3 ML NEB RESP TX SCH ×2 (06:44→19:14)
[2019-02-07] MEDS: INSULIN REGULAR 100 UNIT/ML SUBCUT SCH ×4 (07:44→21:25)
[2019-02-07] MEDS: INSULIN NPH 100 UNIT/ML SUBCUT SCH (07:45)
[2019-02-07] MEDS: PHENYTOIN ER 100 MG CAPSULE PO SCH ×2 (08:05→21:24)
[2019-02-07] MEDS: NEBIVOLOL 10 MG TABLET PO SCH (08:05)
[2019-02-07] MEDS: ISOSORBIDE DINITRATE 10 MG TABLET PO SCH (08:06)
[2019-02-07] MEDS: POTASSIUM CHLORIDE 20 MEQ TABLET PO SCH ×2 (08:06→21:24)
[2019-02-07] MEDS: GLIMEPIRIDE 4 MG TABLET PO SCH (08:06)
[2019-02-07] MEDS: ASPIRIN EC 81 MG TABLET PO SCH (08:06)
[2019-02-07] MEDS: PANTOPRAZOLE 40 MG TABLET PO SCH (08:06)
[2019-02-07] MEDS: BACLOFEN 10 MG TABLET PO SCH ×3 (08:06→21:24)
[2019-02-07] MEDS: amLODIPine 5 MG TABLET PO SCH (08:06)
[2019-02-07] MEDS: predniSONE 20 MG TABLET PO SCH (08:06)
[2019-02-07] MEDS: DILTIAZEM 90 MG TABLET PO SCH (08:06)
[2019-02-07] MEDS: DOCUSATE SODIUM 100 MG CAPSULE PO SCH ×2 (08:06→21:24)
[2019-02-07] MEDS: CITALOPRAM 20 MG TABLET PO SCH (08:07)
[2019-02-07] MEDS: FUROSEMIDE 40 MG TABLET PO SCH (08:07)
[2019-02-07] MEDS: POLYETHYLENE GLYCOL POWDER 17 GM PACK PO SCH (08:07)
[2019-02-07] MEDS: cefTRIAXone 1,000 MG in SYRINGE 1 EACH IV SCH (08:07)
[2019-02-07] MEDS: LIDOCAINE 5% PATCH TRANSDERM SCH (08:08)
[2019-02-07] MEDS: ZINC OXIDE PASTE 113 GM TUBE TOP SCH ×2 (08:09→21:24)
[2019-02-07] MEDS: MOISTURIZING CREAM (EUCERIN) 106 GM JAR TOP SCH ×4 (08:09→21:24)
[2019-02-07] MEDS: cloNIDine 0.1 MG TABLET PO SCH (12:06)
[2019-02-07] MEDS: DOXAZOSIN 1 MG TABLET PO SCH (12:06)
[2019-02-08] MEDS: DEXTROSE 5% NACL 0.45% 1,000 ML IV SCH ×2 (01:32→14:32)
[2019-02-08] MEDS: ACETAMINOPHEN 325 MG TABLET PO PRN (01:32)
[2019-02-08 02:53] LABS: Basophils # 0.1 10*3/uL (0.0-0.2); Basophils % 0.3 % (0.0-0.8); Eosinophils # 0.1 10*3/uL (0.0-0.87); Eosinophils % 0.6 % (0.00-10.9); Hematocrit 33.4 VOL% (42.0-52.0); Hemoglobin 10.3 GM/DL (14.0-18.0); Immature Granulocytes % 0.7 %; Immature Granulocytes Absolute 0.14 #; Lymphocytes # 1.4 10*3/uL (1.4-4.0); Lymphocytes % 7.2 % (21.2-54.2); Mean Corpuscular HGB Conc 30.8 GM/DL (32-36); Mean Corpuscular Volume 89.5 FL (87-102); Mean Platelet Volume 11.7 FL (9.6-12.0); Monocytes % 8.3 % (1.7-12.7); Neutrophils % 82.9 % (38.7-73.9); Platelet Count 213 T/CUMM (130-400); Red Blood Count 3.73 MC/CUMM (3.8-5.5); Red Cell Distribution Width 14.7 % (9.3-17.3); White Blood Count 19.9 T/CUMM (4-12)
[2019-02-08 03:20] LABS: Calcium 8.4 MG/DL (8.5-10.1)
[2019-02-08] MEDS: ALBUTEROL/IPRATROPIUM 3 ML NEB RESP TX SCH ×2 (07:23→19:23)
[2019-02-08] MEDS: BUDESONIDE 0.25 MG/2 ML NEB RESP TX SCH ×2 (07:23→19:23)
[2019-02-08] MEDS: CITALOPRAM 20 MG TABLET PO SCH (08:25)
[2019-02-08] MEDS: predniSONE 20 MG TABLET PO SCH (08:25)
[2019-02-08] MEDS: NEBIVOLOL 10 MG TABLET PO SCH (08:25)
[2019-02-08] MEDS: ASPIRIN EC 81 MG TABLET PO SCH (08:25)
[2019-02-08] MEDS: DOCUSATE SODIUM 100 MG CAPSULE PO SCH ×2 (08:25→22:17)
[2019-02-08] MEDS: cefTRIAXone 1,000 MG in SYRINGE 1 EACH IV SCH (08:25)
[2019-02-08] MEDS: amLODIPine 5 MG TABLET PO SCH (08:25)
[2019-02-08] MEDS: ISOSORBIDE DINITRATE 20 MG TABLET PO SCH (08:25)
[2019-02-08] MEDS: BACLOFEN 10 MG TABLET PO SCH ×3 (08:25→22:18)
[2019-02-08] MEDS: POTASSIUM CHLORIDE 20 MEQ TABLET PO SCH ×2 (08:25→22:18)
[2019-02-08] MEDS: DILTIAZEM 90 MG TABLET PO SCH (08:26)
[2019-02-08] MEDS: FUROSEMIDE 40 MG TABLET PO SCH (08:26)
[2019-02-08] MEDS: PHENYTOIN ER 100 MG CAPSULE PO SCH ×2 (08:26→22:18)
[2019-02-08] MEDS: PANTOPRAZOLE 40 MG TABLET PO SCH (08:26)
[2019-02-08] MEDS: INSULIN REGULAR 100 UNIT/ML SUBCUT SCH ×3 (08:39→15:43)
[2019-02-08] MEDS: ZINC OXIDE PASTE 113 GM TUBE TOP SCH ×2 (08:40→22:18)
[2019-02-08] MEDS: LIDOCAINE 5% PATCH TRANSDERM SCH (08:40)
[2019-02-08] MEDS: MOISTURIZING CREAM (EUCERIN) 106 GM JAR TOP SCH ×4 (08:40→22:18)
[2019-02-08] MEDS: POLYETHYLENE GLYCOL POWDER 17 GM PACK PO SCH (08:41)
[2019-02-08] MEDS: cloNIDine 0.1 MG TABLET PO SCH (12:18)
[2019-02-08] MEDS: DOXAZOSIN 1 MG TABLET PO SCH (12:18)
[2019-02-08] MEDS: MULTIVITAMIN INJ 10 ML, TRACE ELEMENTS (5) 1 ML in AMINO ACIDS/DEXT/LYTES 4.25-5% 2,000 ML IV SCH (16:11)
[2019-02-08] MEDS: FAT EMULSION 20% 250 ML IV SCH (16:12)
[2019-02-09] MEDS: INSULIN REGULAR 100 UNIT/ML SUBCUT SCH ×5 (00:46→21:42)
[2019-02-09] MEDS: ALBUTEROL/IPRATROPIUM 3 ML NEB RESP TX SCH ×2 (07:42→18:52)
[2019-02-09] MEDS: BUDESONIDE 0.25 MG/2 ML NEB RESP TX SCH ×2 (07:42→18:52)
[2019-02-09] MEDS: LIDOCAINE 5% PATCH TRANSDERM SCH (08:08)
[2019-02-09] MEDS: NEBIVOLOL 10 MG TABLET PO SCH (08:09)
[2019-02-09] MEDS: DILTIAZEM 90 MG TABLET PO SCH (08:09)
[2019-02-09] MEDS: amLODIPine 5 MG TABLET PO SCH (08:09)
[2019-02-09] MEDS: FUROSEMIDE 40 MG TABLET PO SCH (08:09)
[2019-02-09] MEDS: BACLOFEN 10 MG TABLET PO SCH ×3 (08:09→21:41)
[2019-02-09] MEDS: ISOSORBIDE DINITRATE 20 MG TABLET PO SCH (08:09)
[2019-02-09] MEDS: PHENYTOIN ER 100 MG CAPSULE PO SCH ×2 (08:09→21:41)
[2019-02-09] MEDS: cefTRIAXone 1,000 MG in SYRINGE 1 EACH IV SCH (08:09)
[2019-02-09] MEDS: POTASSIUM CHLORIDE 20 MEQ TABLET PO SCH ×2 (08:09→21:41)
[2019-02-09] MEDS: CITALOPRAM 20 MG TABLET PO SCH (08:09)
[2019-02-09] MEDS: PANTOPRAZOLE 40 MG TABLET PO SCH (08:10)
[2019-02-09] MEDS: predniSONE 20 MG TABLET PO SCH (08:10)
[2019-02-09] MEDS: ASPIRIN EC 81 MG TABLET PO SCH (08:10)
[2019-02-09] MEDS: DOCUSATE SODIUM 100 MG CAPSULE PO SCH ×2 (08:10→21:42)
[2019-02-09] MEDS: ZINC OXIDE PASTE 113 GM TUBE TOP SCH ×2 (08:10→21:42)
[2019-02-09] MEDS: MOISTURIZING CREAM (EUCERIN) 106 GM JAR TOP SCH ×4 (08:10→21:42)
[2019-02-09] MEDS: POLYETHYLENE GLYCOL POWDER 17 GM PACK PO SCH (08:13)
[2019-02-09] MEDS: CLORAZEPATE 3.75 MG TABLET PO SCH ×2 (09:21→21:41)
[2019-02-09 09:36] LABS: Albumin 2.7 G/DL (3.4-5.0); Bilirubin,Total 0.4 MG/DL (0.2-1.0); Calcium 8.4 MG/DL (8.5-10.1); Osmolality,Calculated 299.1 MOS/KG (273-304); Total Protein 6.7 G/DL (6.4-8.3)
[2019-02-09] MEDS: DOXAZOSIN 1 MG TABLET PO SCH (12:02)
[2019-02-09] MEDS: cloNIDine 0.1 MG TABLET PO SCH (12:02)
[2019-02-09] MEDS: FAT EMULSION 20% 250 ML IV SCH (13:42)
[2019-02-09] MEDS: MULTIVITAMIN INJ 10 ML, TRACE ELEMENTS (5) 1 ML in AMINO ACIDS/DEXT/LYTES 4.25-5% 2,000 ML IV SCH (13:42)
[2019-02-09] MEDS: ACETAMINOPHEN 325 MG TABLET PO PRN (21:48)
[2019-02-10 05:23] LABS: Basophils # 0.1 10*3/uL (0.0-0.2); Basophils % 0.3 % (0.0-0.8); Eosinophils # 0.2 10*3/uL (0.0-0.87); Hematocrit 32.4 VOL% (42.0-52.0); Hemoglobin 9.9 GM/DL (14.0-18.0); Immature Granulocytes % 1.4 %; Immature Granulocytes Absolute 0.24 #; Lymphocytes # 1.9 10*3/uL (1.4-4.0); Lymphocytes % 10.8 % (21.2-54.2); Mean Corpuscular HGB Conc 30.6 GM/DL (32-36); Mean Corpuscular Volume 90.8 FL (87-102); Mean Platelet Volume 11.5 FL (9.6-12.0); Monocytes % 8.1 % (1.7-12.7); Neutrophils % 78.4 % (38.7-73.9); Platelet Count 201 T/CUMM (130-400); Red Blood Count 3.57 MC/CUMM (3.8-5.5); Red Cell Distribution Width 14.3 % (9.3-17.3); White Blood Count 17.4 T/CUMM (4-12)
[2019-02-10 05:50] LABS: Calcium 8.8 MG/DL (8.5-10.1)
[2019-02-10 06:03] LABS: Calcium 8.8 MG/DL (8.5-10.1); Osmolality,Calculated 296.8 MOS/KG (273-304); Prealbumin 11.3 MG/DL (20-40)
[2019-02-10 07:00] LABS: Eosinophils 2 % (0-10); Lymphocytes 14 % (20-55); Segmented Neutrophils 77 % (50-85); Total Cells Counted 100
[2019-02-10 07:01] LABS: Hypochromasia 1+; Microcytosis Slight; Platelet Estimate Normal
[2019-02-10] MEDS: BUDESONIDE 0.25 MG/2 ML NEB RESP TX SCH ×2 (07:46→18:40)
[2019-02-10] MEDS: ALBUTEROL/IPRATROPIUM 3 ML NEB RESP TX SCH ×2 (07:46→18:30)
[2019-02-10] MEDS: INSULIN REGULAR 100 UNIT/ML SUBCUT SCH ×4 (09:57→21:02)
[2019-02-10] MEDS: predniSONE 20 MG TABLET PO SCH (09:58)
[2019-02-10] MEDS: CITALOPRAM 20 MG TABLET PO SCH (09:58)
[2019-02-10] MEDS: CLORAZEPATE 3.75 MG TABLET PO SCH ×2 (09:58→21:01)
[2019-02-10] MEDS: ASPIRIN EC 81 MG TABLET PO SCH (09:58)
[2019-02-10] MEDS: NEBIVOLOL 10 MG TABLET PO SCH (09:58)
[2019-02-10] MEDS: ISOSORBIDE DINITRATE 20 MG TABLET PO SCH (09:58)
[2019-02-10] MEDS: PHENYTOIN ER 100 MG CAPSULE PO SCH ×2 (09:59→21:02)
[2019-02-10] MEDS: FUROSEMIDE 40 MG TABLET PO SCH (09:59)
[2019-02-10] MEDS: DILTIAZEM 90 MG TABLET PO SCH (09:59)
[2019-02-10] MEDS: PANTOPRAZOLE 40 MG TABLET PO SCH (09:59)
[2019-02-10] MEDS: POTASSIUM CHLORIDE 20 MEQ TABLET PO SCH ×2 (09:59→21:03)
[2019-02-10] MEDS: DOCUSATE SODIUM 100 MG CAPSULE PO SCH (09:59)
[2019-02-10] MEDS: ZINC OXIDE PASTE 113 GM TUBE TOP SCH ×2 (10:00→21:03)
[2019-02-10] MEDS: LIDOCAINE 5% PATCH TRANSDERM SCH (10:00)
[2019-02-10] MEDS: cefTRIAXone 1,000 MG in SYRINGE 1 EACH IV SCH (10:00)
[2019-02-10] MEDS: POLYETHYLENE GLYCOL POWDER 17 GM PACK PO SCH ×2 (10:00→18:14)
[2019-02-10] MEDS: MOISTURIZING CREAM (EUCERIN) 106 GM JAR TOP SCH ×4 (10:00→21:03)
[2019-02-10] MEDS: BACLOFEN 10 MG TABLET PO SCH ×2 (10:01→15:48)
[2019-02-10] MEDS: MULTIVITAMIN INJ 10 ML, TRACE ELEMENTS (5) 1 ML in AMINO ACIDS/DEXT/LYTES 4.25-5% 2,000 ML IV SCH (10:18)
[2019-02-10] MEDS: DOXAZOSIN 1 MG TABLET PO SCH (12:58)
[2019-02-10] MEDS: cloNIDine 0.1 MG TABLET PO SCH (12:59)
[2019-02-10] MEDS: FAT EMULSION 20% 250 ML IV SCH (14:44)
[2019-02-10] MEDS ORDERED: FUROSEMIDE 40 MG/4 ML VIAL IV ONE (18:00)
[2019-02-10] MEDS: METOCLOPRAMIDE 10 MG/2 ML VIAL IV SCH (18:14)
[2019-02-10] MEDS: metroNIDAZOLE INJ 250 MG in IV BAG 1 EACH IV SCH (21:01)
[2019-02-11] MEDS: METOCLOPRAMIDE 10 MG/2 ML VIAL IV SCH ×4 (00:32→17:26)
[2019-02-11] MEDS: POLYETHYLENE GLYCOL POWDER 17 GM PACK PO SCH ×4 (00:33→17:26)
[2019-02-11] MEDS: INSULIN REGULAR 100 UNIT/ML SUBCUT SCH ×4 (00:33→18:38)
[2019-02-11] MEDS: metroNIDAZOLE INJ 250 MG in IV BAG 1 EACH IV SCH ×4 (02:35→21:47)
[2019-02-11 04:29] LABS: Basophils # 0.1 10*3/uL (0.0-0.2); Basophils % 0.3 % (0.0-0.8); Eosinophils # 0.2 10*3/uL (0.0-0.87); Eosinophils % 0.9 % (0.00-10.9); Hematocrit 30.1 VOL% (42.0-52.0); Hemoglobin 9.3 GM/DL (14.0-18.0); Immature Granulocytes % 1.1 %; Lymphocytes % 10.9 % (21.2-54.2); Mean Corpuscular HGB Conc 30.9 GM/DL (32-36); Mean Corpuscular Volume 89.3 FL (87-102); Mean Platelet Volume 12.3 FL (9.6-12.0); Monocytes % 7.7 % (1.7-12.7); Neutrophils % 79.1 % (38.7-73.9); Platelet Count 208 T/CUMM (130-400); Red Blood Count 3.37 MC/CUMM (3.8-5.5); Red Cell Distribution Width 14.3 % (9.3-17.3)
[2019-02-11] MEDS: MULTIVITAMIN INJ 10 ML, TRACE ELEMENTS (5) 1 ML in AMINO ACIDS/DEXT/LYTES 4.25-5% 2,000 ML IV SCH (05:44)
[2019-02-11] MEDS: ALBUTEROL/IPRATROPIUM 3 ML NEB RESP TX SCH ×3 (07:10→19:15)
[2019-02-11] MEDS: FUROSEMIDE 40 MG/4 ML VIAL IV SCH (09:33)
[2019-02-11] MEDS: DILTIAZEM 90 MG TABLET PO SCH ×2 (09:34→10:18)
[2019-02-11] MEDS: cefTRIAXone 1,000 MG in SYRINGE 1 EACH IV SCH (09:34)
[2019-02-11] MEDS: NEBIVOLOL 10 MG TABLET PO SCH ×2 (09:34→10:18)
[2019-02-11] MEDS: ISOSORBIDE DINITRATE 20 MG TABLET PO SCH ×2 (09:35→10:19)
[2019-02-11] MEDS: PHENYTOIN ER 100 MG CAPSULE PO SCH (09:35)
[2019-02-11] MEDS: LIDOCAINE 5% PATCH TRANSDERM SCH (09:35)
[2019-02-11] MEDS: ASPIRIN EC 81 MG TABLET PO SCH ×2 (09:35→10:18)
[2019-02-11] MEDS: CLORAZEPATE 3.75 MG TABLET PO SCH ×3 (09:35→21:48)
[2019-02-11] MEDS: predniSONE 20 MG TABLET PO SCH ×2 (09:35→10:20)
[2019-02-11] MEDS: POTASSIUM CHLORIDE 20 MEQ TABLET PO SCH ×3 (09:35→21:48)
[2019-02-11] MEDS: PANTOPRAZOLE 40 MG TABLET PO SCH (09:35)
[2019-02-11] MEDS: CITALOPRAM 20 MG TABLET PO SCH ×2 (09:35→10:19)
[2019-02-11] MEDS: MOISTURIZING CREAM (EUCERIN) 106 GM JAR TOP SCH ×4 (09:36→22:13)
[2019-02-11] MEDS: ZINC OXIDE PASTE 113 GM TUBE TOP SCH ×2 (09:36→22:12)
[2019-02-11] MEDS: LANSOPRAZOLE ODT 30 MG TABLET PO SCH ×2 (09:56→10:18)
[2019-02-11] MEDS: PHENYTOIN 100 MG/4 ML UDCUP PO SCH ×3 (09:57→21:48)
[2019-02-11] MEDS: DOXAZOSIN 1 MG TABLET PO SCH (11:26)
[2019-02-11] MEDS: cloNIDine 0.1 MG TABLET PO SCH (12:34)
[2019-02-11] MEDS: FAT EMULSION 20% 250 ML IV SCH (14:27)
[2019-02-11] MEDS: BUDESONIDE 0.25 MG/2 ML NEB RESP TX SCH (19:15)
[2019-02-12] MEDS: METOCLOPRAMIDE 10 MG/2 ML VIAL IV SCH ×4 (00:02→17:49)
[2019-02-12] MEDS: INSULIN REGULAR 100 UNIT/ML SUBCUT SCH ×5 (00:02→20:53)
[2019-02-12] MEDS: MULTIVITAMIN INJ 10 ML, TRACE ELEMENTS (5) 1 ML in AMINO ACIDS/DEXT/LYTES 4.25-5% 2,000 ML IV SCH ×2 (02:40→17:54)
[2019-02-12] MEDS: POLYETHYLENE GLYCOL POWDER 17 GM PACK PO SCH ×3 (02:42→18:41)
[2019-02-12] MEDS: metroNIDAZOLE INJ 250 MG in IV BAG 1 EACH IV SCH ×4 (03:01→20:28)
[2019-02-12 06:15] LABS: Calcium 8.4 MG/DL (8.5-10.1); Osmolality,Calculated 277.2 MOS/KG (273-304)
[2019-02-12 06:18] LABS: Basophils # 0.1 10*3/uL (0.0-0.2); Basophils % 0.3 % (0.0-0.8); Eosinophils # 0.2 10*3/uL (0.0-0.87); Eosinophils % 0.7 % (0.00-10.9); Hematocrit 29.7 VOL% (42.0-52.0); Hemoglobin 9.3 GM/DL (14.0-18.0); Immature Granulocytes % 1.1 %; Immature Granulocytes Absolute 0.24 #; Lymphocytes # 2.2 10*3/uL (1.4-4.0); Mean Corpuscular HGB Conc 31.3 GM/DL (32-36); Mean Corpuscular Volume 88.4 FL (87-102); Mean Platelet Volume 11.4 FL (9.6-12.0); Neutrophils % 80.9 % (38.7-73.9); Platelet Count 207 T/CUMM (130-400); Red Blood Count 3.36 MC/CUMM (3.8-5.5); Red Cell Distribution Width 14.2 % (9.3-17.3); White Blood Count 21.8 T/CUMM (4-12)
[2019-02-12 06:39] LABS: Hypochromasia 1+; Lymphocytes 6 % (20-55); Microcytosis 1+; Platelet Estimate Adequate; Segmented Neutrophils 93 % (50-85); Total Cells Counted 100
[2019-02-12] MEDS: BUDESONIDE 0.25 MG/2 ML NEB RESP TX SCH ×3 (07:10→19:27)
[2019-02-12] MEDS: ALBUTEROL/IPRATROPIUM 3 ML NEB RESP TX SCH ×3 (07:13→19:27)
[2019-02-12] MEDS ORDERED: methylPREDNISolone SOD SUC 40 MG/1 ML VIAL IV ONE (09:26)
[2019-02-12] MEDS ORDERED: ALBUTEROL/IPRATROPIUM 3 ML NEB RESP TX ONE (09:30)
[2019-02-12] MEDS: ALBUTEROL/IPRATROPIUM 3 ML NEB RESP TX PRN (09:30)
[2019-02-12] MEDS: FUROSEMIDE 40 MG/4 ML VIAL IV SCH ×2 (09:51→17:49)
[2019-02-12] MEDS: cefTRIAXone 1,000 MG in SYRINGE 1 EACH IV SCH (09:59)
[2019-02-12] MEDS: NEBIVOLOL 10 MG TABLET PO SCH (10:00)
[2019-02-12] MEDS: DILTIAZEM 90 MG TABLET PO SCH (10:00)
[2019-02-12] MEDS: PHENYTOIN 100 MG/4 ML UDCUP PO SCH ×2 (10:00→20:29)
[2019-02-12] MEDS: ASPIRIN EC 81 MG TABLET PO SCH (10:00)
[2019-02-12] MEDS: CITALOPRAM 20 MG TABLET PO SCH (10:00)
[2019-02-12] MEDS: LANSOPRAZOLE ODT 30 MG TABLET PO SCH (10:01)
[2019-02-12] MEDS: ISOSORBIDE DINITRATE 20 MG TABLET PO SCH (10:01)
[2019-02-12] MEDS: POTASSIUM CHLORIDE 20 MEQ TABLET PO SCH ×2 (10:02→20:29)
[2019-02-12] MEDS: predniSONE 20 MG TABLET PO SCH (10:02)
[2019-02-12] MEDS: CLORAZEPATE 3.75 MG TABLET PO SCH ×2 (10:02→20:30)
[2019-02-12] MEDS: LIDOCAINE 5% PATCH TRANSDERM SCH (10:07)
[2019-02-12] MEDS: cloNIDine 0.1 MG TABLET PO SCH (12:55)
[2019-02-12] MEDS: DOXAZOSIN 1 MG TABLET PO SCH (12:55)
[2019-02-12] MEDS: FAT EMULSION 20% 250 ML IV SCH (14:41)
[2019-02-12] MEDS: ZINC OXIDE PASTE 113 GM TUBE TOP SCH ×2 (17:49→20:30)
[2019-02-12] MEDS: MOISTURIZING CREAM (EUCERIN) 106 GM JAR TOP SCH ×3 (17:49→20:30)
[2019-02-12] MEDS ORDERED: INSULIN GLARGINE 100 UNIT/ML SUBCUT SCH (21:00)
[2019-02-12] MEDS ORDERED: INSULIN REGULAR 100 UNIT/ML SUBCUT ONE (21:44)
[2019-02-12] MEDS ORDERED: AMINO ACIDS/DEXT/LYTES 4.25-5% 2,000 ML IV SCH (23:30)
[2019-02-13] MEDS: METOCLOPRAMIDE 10 MG/2 ML VIAL IV SCH ×5 (00:48→23:53)
[2019-02-13] MEDS: INSULIN REGULAR 100 UNIT/ML SUBCUT SCH ×5 (00:57→23:52)
[2019-02-13] MEDS: POLYETHYLENE GLYCOL POWDER 17 GM PACK PO SCH ×3 (03:57→18:57)
[2019-02-13] MEDS: methylPREDNISolone SOD SUC 40 MG/1 ML VIAL IV SCH ×3 (03:58→23:53)
[2019-02-13] MEDS: metroNIDAZOLE INJ 250 MG in IV BAG 1 EACH IV SCH ×4 (04:03→22:53)
[2019-02-13 05:44] LABS: Basophils # 0.1 10*3/uL (0.0-0.2); Basophils % 0.4 % (0.0-0.8); Eosinophils # 0.2 10*3/uL (0.0-0.87); Eosinophils % 0.9 % (0.00-10.9); Hematocrit 28.6 VOL% (42.0-52.0); Hemoglobin 8.9 GM/DL (14.0-18.0); Immature Granulocytes % 1.2 %; Immature Granulocytes Absolute 0.21 #; Lymphocytes # 1.7 10*3/uL (1.4-4.0); Lymphocytes % 10.2 % (21.2-54.2); Mean Corpuscular HGB Conc 31.1 GM/DL (32-36); Mean Corpuscular Volume 88.8 FL (87-102); Mean Platelet Volume 11.6 FL (9.6-12.0); Monocytes % 7.8 % (1.7-12.7); Neutrophils % 79.5 % (38.7-73.9); Platelet Count 209 T/CUMM (130-400); Red Blood Count 3.22 MC/CUMM (3.8-5.5); Red Cell Distribution Width 13.9 % (9.3-17.3)
[2019-02-13 06:02] LABS: Calcium 8.2 MG/DL (8.5-10.1); Osmolality,Calculated 281.4 MOS/KG (273-304)
[2019-02-13] MEDS: ALBUTEROL/IPRATROPIUM 3 ML NEB RESP TX SCH ×3 (07:52→19:22)
[2019-02-13] MEDS: BUDESONIDE 0.25 MG/2 ML NEB RESP TX SCH ×2 (07:52→19:22)
[2019-02-13] MEDS ORDERED: ETOMIDATE 20 MG/10 ML VIAL IV ONE (08:00)
[2019-02-13] MEDS ORDERED: PROPOFOL 200 MG/20 ML VIAL IV ONE (08:00)
[2019-02-13] MEDS ORDERED: LIDOCAINE 2% 5 ML VIAL ONE (08:00)
[2019-02-13] MEDS ORDERED: SODIUM CHLORIDE 0.9% 1,000 ML IV SCH (08:00)
[2019-02-13] MEDS: DEXTROSE 5% LACTATED RINGERS 1,000 ML IV SCH (08:35)
[2019-02-13] MEDS ORDERED: predniSONE 10 MG TABLET PO SCH (09:00)
[2019-02-13] MEDS: NEBIVOLOL 10 MG TABLET PO SCH (11:12)
[2019-02-13] MEDS: ASPIRIN EC 81 MG TABLET PO SCH (11:12)
[2019-02-13] MEDS: LANSOPRAZOLE ODT 30 MG TABLET PO SCH (11:12)
[2019-02-13] MEDS: CLORAZEPATE 3.75 MG TABLET PO SCH ×2 (11:12→22:53)
[2019-02-13] MEDS: CITALOPRAM 20 MG TABLET PO SCH (11:13)
[2019-02-13] MEDS: DILTIAZEM 90 MG TABLET PO SCH (11:13)
[2019-02-13] MEDS: ISOSORBIDE DINITRATE 20 MG TABLET PO SCH (11:15)
[2019-02-13] MEDS: cloNIDine 0.1 MG TABLET PO SCH ×2 (11:16→15:20)
[2019-02-13] MEDS: POTASSIUM CHLORIDE 20 MEQ TABLET PO SCH ×2 (11:16→22:53)
[2019-02-13] MEDS: FUROSEMIDE 40 MG/4 ML VIAL IV SCH ×2 (11:17→17:51)
[2019-02-13] MEDS: cefTRIAXone 1,000 MG in SYRINGE 1 EACH IV SCH (11:17)
[2019-02-13] MEDS: LIDOCAINE 5% PATCH TRANSDERM SCH (11:17)
[2019-02-13] MEDS: PHENYTOIN 100 MG/4 ML UDCUP PO SCH ×2 (11:17→22:52)
[2019-02-13] MEDS: MOISTURIZING CREAM (EUCERIN) 106 GM JAR TOP SCH ×5 (11:20→22:55)
[2019-02-13] MEDS: ZINC OXIDE PASTE 113 GM TUBE TOP SCH ×2 (11:20→22:55)
[2019-02-13] MEDS: DOXAZOSIN 1 MG TABLET PO SCH (15:18)
[2019-02-13] MEDS: FAT EMULSION 20% 250 ML IV SCH (15:20)
[2019-02-13] MEDS: MULTIVITAMIN INJ 10 ML, TRACE ELEMENTS (5) 1 ML in AMINO ACIDS/DEXT/LYTES 4.25-5% 2,000 ML IV SCH (17:52)
[2019-02-13] MEDS ORDERED: INSULIN GLARGINE 100 UNIT/ML SUBCUT SCH (21:00)
[2019-02-14] MEDS: POLYETHYLENE GLYCOL POWDER 17 GM PACK PO SCH ×3 (02:32→16:51)
[2019-02-14] MEDS: metroNIDAZOLE INJ 250 MG in IV BAG 1 EACH IV SCH ×3 (02:32→14:45)
[2019-02-14 05:54] LABS: Basophils % 0.3 % (0.0-0.8); Hematocrit 28.8 VOL% (42.0-52.0); Immature Granulocytes % 1.2 %; Immature Granulocytes Absolute 0.17 #; Lymphocytes # 0.7 10*3/uL (1.4-4.0); Lymphocytes % 4.9 % (21.2-54.2); Mean Corpuscular HGB Conc 31.3 GM/DL (32-36); Mean Corpuscular Volume 88.1 FL (87-102); Mean Platelet Volume 11.5 FL (9.6-12.0); Monocytes % 4.1 % (1.7-12.7); Neutrophils % 89.5 % (38.7-73.9); Platelet Count 244 T/CUMM (130-400); Red Blood Count 3.27 MC/CUMM (3.8-5.5); Red Cell Distribution Width 13.9 % (9.3-17.3); White Blood Count 14.7 T/CUMM (4-12)
[2019-02-14 06:20] LABS: Calcium 8.1 MG/DL (8.5-10.1); Osmolality,Calculated 287.4 MOS/KG (273-304)
[2019-02-14] MEDS: METOCLOPRAMIDE 10 MG/2 ML VIAL IV SCH ×3 (06:21→15:57)
[2019-02-14 06:56] LABS: Lymphocytes 6 % (20-55); Segmented Neutrophils 92 % (50-85)
[2019-02-14 06:57] LABS: Platelet Estimate Adequate; Total Cells Counted 100
[2019-02-14] MEDS: BUDESONIDE 0.25 MG/2 ML NEB RESP TX SCH ×2 (07:36→19:15)
[2019-02-14] MEDS: ALBUTEROL/IPRATROPIUM 3 ML NEB RESP TX SCH ×3 (07:36→19:15)
[2019-02-14] MEDS: POTASSIUM CHLORIDE 20 MEQ TABLET PO SCH (08:40)
[2019-02-14] MEDS: ISOSORBIDE DINITRATE 20 MG TABLET PO SCH (08:40)
[2019-02-14] MEDS: FUROSEMIDE 40 MG/4 ML VIAL IV SCH ×2 (08:40→16:47)
[2019-02-14] MEDS: MOISTURIZING CREAM (EUCERIN) 106 GM JAR TOP SCH ×3 (08:40→16:50)
[2019-02-14] MEDS: CLORAZEPATE 3.75 MG TABLET PO SCH (08:40)
[2019-02-14] MEDS: ZINC OXIDE PASTE 113 GM TUBE TOP SCH (08:40)
[2019-02-14] MEDS: PHENYTOIN 100 MG/4 ML UDCUP PO SCH (08:40)
[2019-02-14] MEDS: LANSOPRAZOLE ODT 30 MG TABLET PO SCH (08:40)
[2019-02-14] MEDS: CITALOPRAM 20 MG TABLET PO SCH (08:40)
[2019-02-14] MEDS: NEBIVOLOL 10 MG TABLET PO SCH (08:40)
[2019-02-14] MEDS: LIDOCAINE 5% PATCH TRANSDERM SCH (08:40)
[2019-02-14] MEDS: ASPIRIN EC 81 MG TABLET PO SCH (08:40)
[2019-02-14] MEDS: cefTRIAXone 1,000 MG in SYRINGE 1 EACH IV SCH (08:43)
[2019-02-14] MEDS: DILTIAZEM 90 MG TABLET PO SCH (09:51)
[2019-02-14] MEDS: DOXAZOSIN 1 MG TABLET PO SCH (12:09)
[2019-02-14] MEDS: methylPREDNISolone SOD SUC 40 MG/1 ML VIAL IV SCH (12:12)
[2019-02-14] MEDS: cloNIDine 0.1 MG TABLET PO SCH (13:47)
[2019-02-14] MEDS: DEXTROSE 5% LACTATED RINGERS 1,000 ML IV SCH (14:47)
[2019-02-14] MEDS: FAT EMULSION 20% 250 ML IV SCH (14:49)
[2019-02-14 19:43] VITALS: BP 141/72
[2019-02-14] MEDS ORDERED: INSULIN GLARGINE 100 UNIT/ML SUBCUT SCH (21:00)
== END 2019-02-14 19:35 | DRG 872 ==
LOC: EDBD → EDUNIT# → N.ED 17:24 → N.EDINP 17:24 → SUPCPDRO 21:00 → N.5E 21:37
PROVIDERS: ADMIT Internal Medicine; ATTEND Internal Medicine

== ENCOUNTER 2019-02-15 08:46 | Inpatient (IN) ==
[2019-02-15] MEDS ORDERED: ONDANSETRON 4 MG/2 ML VIAL IV ONE (08:57)
[2019-02-15] MEDS ORDERED: ASPIRIN 325 MG TABLET PO STA (08:57)
[2019-02-15] MEDS ORDERED: ALBUTEROL/IPRATROPIUM 3 ML NEB RESP TX STA (08:57)
[2019-02-15] MEDS ORDERED: FUROSEMIDE 40 MG/4 ML VIAL IV STA (08:58)
[2019-02-15] MEDS ORDERED: NITROGLYCERIN 2% OINT 1 INCH/GM PACK TOP STA (08:58)
[2019-02-15] MEDS ORDERED: methylPREDNISolone SOD SUC 125 MG/2 ML VIAL IV STA (09:00)
[2019-02-15] MEDS ORDERED: ASPIRIN 300 MG SUPP RECTAL ONE (09:02)
[2019-02-15] MEDS ORDERED: ASPIRIN 300 MG SUPP RECTAL STA (09:02)
[2019-02-15 09:06] LABS: Basophils # 0.1 10*3/uL (0.0-0.2); Basophils % 0.4 % (0.0-0.8); Eosinophils # 0.1 10*3/uL (0.0-0.87); Eosinophils % 0.4 % (0.00-10.9); Hematocrit 32.3 VOL% (42.0-52.0); Hemoglobin 9.9 GM/DL (14.0-18.0); Immature Granulocytes % 0.7 %; Immature Granulocytes Absolute 0.12 #; Lymphocytes # 1.7 10*3/uL (1.4-4.0); Lymphocytes % 10.4 % (21.2-54.2); Mean Corpuscular HGB Conc 30.7 GM/DL (32-36); Mean Platelet Volume 11.8 FL (9.6-12.0); Monocytes % 5.9 % (1.7-12.7); Neutrophils % 82.2 % (38.7-73.9); Platelet Count 319 T/CUMM (130-400); Red Blood Count 3.63 MC/CUMM (3.8-5.5); Red Cell Distribution Width 14.3 % (9.3-17.3); White Blood Count 16.6 T/CUMM (4-12)
[2019-02-15 09:16] LABS: INR 0.9; PT Patient Result 10.3 SECS
[2019-02-15 09:16] LABS: ABG Base Excess 0.5 MMOL/L (-2.5-2.5); ABG HCO3 24.9 MMOL/L (20-26); ABG Oxygen Saturation 98.7 % (95-100); ABG PH 7.351 (7.35-7.45); ABG TCO2 24.2 MMOL/L (23-27)
[2019-02-15] MEDS ORDERED: ALBUTEROL 2.5 MG/3 ML NEB RESP TX STA (09:19)
[2019-02-15] MEDS ORDERED: MORPHINE 4 MG/1 ML VIAL IV ONE (09:26)
[2019-02-15] MEDS: NITROGLYCERIN DRIP 50 MG/250 ML BOTTLE IV PRN (09:35)
[2019-02-15 09:49] LABS: Alanine Aminotransferase 38 U/L (16-61); Alkaline Phosphatase 85 U/L (45-117); Aspartate Amino Transferase 14 U/L (0-37); Bilirubin,Total < 0.39 MG/DL (0.2-1.0); Calcium 8.5 MG/DL (8.5-10.1); Total Protein 7.9 G/DL (6.4-8.3)
[2019-02-15 09:50] LABS: Albumin 3.3 G/DL (3.4-5.0); Blood Urea Nitrogen 52 MG/DL (7-18); Glucose 275 MG/DL (74-106)
[2019-02-15 09:51] LABS: Osmolality,Calculated 287.5 MOS/KG (273-304)
[2019-02-15 09:52] LABS: Troponin I < 0.015 NG/ML (0.00-0.045)
[2019-02-15 09:55] LABS: Amorphous Crystals,Urine Moderate /HPF (Few); Apearance,Urine CLEAR (Clear); Bilirubin,Urine Negative (Negative); Blood, Urine Small mg/dL (Negative); Glucose,Urine (UA) 50 mg/dL (Negative); Ketones,Urine Negative (Negative); Nitrite,Urine Negative (Negative); Protein,Urine 30 MG/DL; RBC,Urine 4 /HPF (0-4); Urine Color Yellow (Yellow); Urine Specific Gravity 1.013 (1.001-1.035); Urine Urobilinogen < 2.0 EU/DL (0.2-1.0); WBC,Urine 1 /HPF (0-6)
[2019-02-15] MEDS ORDERED: PIPERACILLIN/TAZOBACTAM 3,375 MG in SODIUM CHLORIDE 0.9% 100 ML IV STA (09:57)
[2019-02-15] MEDS ORDERED: VANCOMYCIN INJ 1,250 MG in SODIUM CHLORIDE 0.9% 250 ML IV STA (09:57)
[2019-02-15] MEDS ORDERED: ALBUTEROL/IPRATROPIUM 3 ML NEB RESP TX PRN (11:28)
[2019-02-15] MEDS: ENOXAPARIN 40 MG/0.4 ML SYRINGE SUBCUT SCH (12:02)
[2019-02-15] MEDS: FAMOTIDINE 20 MG/2 ML VIAL IV SCH ×2 (12:03→23:36)
[2019-02-15] MEDS ORDERED: FUROSEMIDE 40 MG/4 ML VIAL IV ONE (13:00)
[2019-02-15] MEDS: DOCUSATE SODIUM 100 MG CAPSULE PO SCH (22:20)
[2019-02-16 04:59] LABS: Basophils # 0.1 10*3/uL (0.0-0.2); Basophils % 0.3 % (0.0-0.8); Eosinophils % 0.3 % (0.00-10.9); Hematocrit 28.8 VOL% (42.0-52.0); Hemoglobin 9.2 GM/DL (14.0-18.0); Immature Granulocytes % 0.5 %; Immature Granulocytes Absolute 0.08 #; Lymphocytes # 1.6 10*3/uL (1.4-4.0); Lymphocytes % 10.7 % (21.2-54.2); Mean Corpuscular HGB Conc 31.9 GM/DL (32-36); Mean Corpuscular Volume 88.9 FL (87-102); Mean Platelet Volume 12.1 FL (9.6-12.0); Monocytes % 6.5 % (1.7-12.7); Neutrophils % 81.7 % (38.7-73.9); Platelet Count 311 T/CUMM (130-400); Red Blood Count 3.24 MC/CUMM (3.8-5.5); Red Cell Distribution Width 13.9 % (9.3-17.3); White Blood Count 14.7 T/CUMM (4-12)
[2019-02-16 05:29] LABS: Bilirubin,Total 0.6 MG/DL (0.2-1.0); Calcium 8.4 MG/DL (8.5-10.1); Osmolality,Calculated 293.7 MOS/KG (273-304); Total Protein 7.1 G/DL (6.4-8.3)
[2019-02-16] MEDS: PANTOPRAZOLE 40 MG TABLET PO SCH (10:33)
[2019-02-16] MEDS: DOCUSATE SODIUM 100 MG CAPSULE PO SCH ×2 (10:33→21:30)
[2019-02-16] MEDS: FAMOTIDINE 20 MG/2 ML VIAL IV SCH ×2 (11:23→23:38)
[2019-02-16] MEDS: ENOXAPARIN 40 MG/0.4 ML SYRINGE SUBCUT SCH (11:23)
[2019-02-16] MEDS: amLODIPine 5 MG TABLET PO SCH ×3 (13:13→21:30)
[2019-02-16] MEDS: NEBIVOLOL 5 MG TABLET PO SCH ×2 (13:13→13:19)
[2019-02-16] MEDS: INSULIN LISPRO 100 UNIT/ML SUBCUT SCH ×2 (17:42→21:30)
[2019-02-17] MEDS: NITROGLYCERIN DRIP 50 MG/250 ML BOTTLE IV PRN (03:36)
[2019-02-17 05:28] LABS: Basophils # 0.1 10*3/uL (0.0-0.2); Basophils % 0.3 % (0.0-0.8); Eosinophils % 0.2 % (0.00-10.9); Hematocrit 27.1 VOL% (42.0-52.0); Hemoglobin 8.3 GM/DL (14.0-18.0); Immature Granulocytes % 0.9 %; Immature Granulocytes Absolute 0.16 #; Lymphocytes # 1.2 10*3/uL (1.4-4.0); Lymphocytes % 6.7 % (21.2-54.2); Mean Corpuscular HGB Conc 30.6 GM/DL (32-36); Mean Corpuscular Volume 90.3 FL (87-102); Mean Platelet Volume 11.2 FL (9.6-12.0); Monocytes % 5.2 % (1.7-12.7); Neutrophils % 86.7 % (38.7-73.9); Platelet Count 304 T/CUMM (130-400); Red Cell Distribution Width 13.7 % (9.3-17.3); White Blood Count 18.2 T/CUMM (4-12)
[2019-02-17 07:10] LABS: Albumin 2.5 G/DL (3.4-5.0); Bilirubin,Total 0.8 MG/DL (0.2-1.0); Calcium 8.4 MG/DL (8.5-10.1); Osmolality,Calculated 289.4 MOS/KG (273-304); Thyroid Stimulating Hormone 1.44 uIU/ml (0.358-3.74); Total Protein 6.4 G/DL (6.4-8.3)
[2019-02-17] MEDS: INSULIN LISPRO 100 UNIT/ML SUBCUT SCH ×4 (07:51→22:17)
[2019-02-17] MEDS: PANTOPRAZOLE 40 MG TABLET PO SCH (08:25)
[2019-02-17] MEDS: NEBIVOLOL 5 MG TABLET PO SCH (08:26)
[2019-02-17] MEDS: amLODIPine 5 MG TABLET PO SCH ×2 (08:26→21:32)
[2019-02-17] MEDS ORDERED: NEBIVOLOL 5 MG TABLET PO ONE (09:36)
[2019-02-17] MEDS: DOCUSATE SODIUM 100 MG CAPSULE PO SCH ×2 (09:51→21:36)
[2019-02-17] MEDS: ENOXAPARIN 40 MG/0.4 ML SYRINGE SUBCUT SCH (09:52)
[2019-02-17] MEDS: ISOSORBIDE DINITRATE 20 MG TABLET PO SCH ×3 (09:52→21:32)
[2019-02-17] MEDS: FAMOTIDINE 20 MG/2 ML VIAL IV SCH ×2 (09:53→23:58)
[2019-02-17] MEDS ORDERED: FUROSEMIDE 40 MG/4 ML VIAL IV ONE (19:30)
[2019-02-17] MEDS: NEBIVOLOL 10 MG TABLET PO SCH (21:31)
[2019-02-17] MEDS: LIDOCAINE 5% PATCH TRANSDERM SCH (22:15)
[2019-02-18] MEDS ORDERED: MAGNESIUM HYDROXIDE SUSP 30 ML UDCUP PO PRN (00:35)
[2019-02-18] MEDS ORDERED: BISACODYL 10 MG SUPP RECTAL PRN (00:35)
[2019-02-18] MEDS: ALBUTEROL/IPRATROPIUM 3 ML NEB RESP TX SCH ×4 (01:05→19:43)
[2019-02-18] MEDS: BUDESONIDE 0.25 MG/2 ML NEB RESP TX SCH ×3 (01:05→19:43)
[2019-02-18] MEDS: POTASSIUM CHLORIDE 20 MEQ TABLET PO SCH ×2 (01:44→11:58)
[2019-02-18 05:25] LABS: Basophils # 0.1 10*3/uL (0.0-0.2); Basophils % 0.4 % (0.0-0.8); Eosinophils # 0.1 10*3/uL (0.0-0.87); Eosinophils % 0.5 % (0.00-10.9); Hematocrit 26.6 VOL% (42.0-52.0); Hemoglobin 8.2 GM/DL (14.0-18.0); Immature Granulocytes % 0.7 %; Immature Granulocytes Absolute 0.12 #; Lymphocytes # 1.5 10*3/uL (1.4-4.0); Lymphocytes % 8.8 % (21.2-54.2); Mean Corpuscular HGB Conc 30.8 GM/DL (32-36); Mean Corpuscular Volume 90.5 FL (87-102); Mean Platelet Volume 11.4 FL (9.6-12.0); Neutrophils % 84.6 % (38.7-73.9); Platelet Count 276 T/CUMM (130-400); Red Blood Count 2.94 MC/CUMM (3.8-5.5); White Blood Count 16.7 T/CUMM (4-12)
[2019-02-18 05:56] LABS: Osmolality,Calculated 288.4 MOS/KG (273-304)
[2019-02-18] MEDS: GLIMEPIRIDE 4 MG TABLET PO SCH (06:17)
[2019-02-18] MEDS ORDERED: PHENYTOIN ER 100 MG CAPSULE PO SCH (08:00)
[2019-02-18] MEDS ORDERED: NON-FORMULARY MEDICATION (Docusate Sodium 100 MG) PO SCH (08:00)
[2019-02-18] MEDS ORDERED: SODIUM CHLORIDE 0.9% 1,000 ML IV PRN (08:16)
[2019-02-18] MEDS: INSULIN LISPRO 100 UNIT/ML SUBCUT SCH ×4 (08:19→22:30)
[2019-02-18] MEDS: PANTOPRAZOLE 40 MG TABLET PO SCH (08:33)
[2019-02-18] MEDS: CLORAZEPATE 3.75 MG TABLET PO SCH ×2 (08:33→17:41)
[2019-02-18] MEDS: DILTIAZEM 90 MG TABLET PO SCH (08:33)
[2019-02-18] MEDS: DOCUSATE SODIUM 100 MG CAPSULE PO SCH ×2 (08:34→22:16)
[2019-02-18] MEDS: THEOPHYLLINE ER (24 HR) 400 MG CAPSULE PO SCH (08:34)
[2019-02-18] MEDS: ASPIRIN EC 81 MG TABLET PO SCH (08:34)
[2019-02-18] MEDS: CLOPIDOGREL 75 MG TABLET PO SCH (08:34)
[2019-02-18] MEDS: NEBIVOLOL 10 MG TABLET PO SCH ×2 (08:34→22:16)
[2019-02-18] MEDS: METOCLOPRAMIDE 5 MG TABLET PO SCH ×3 (08:34→17:41)
[2019-02-18] MEDS: ISOSORBIDE DINITRATE 20 MG TABLET PO SCH ×3 (08:34→22:17)
[2019-02-18] MEDS: PHENYTOIN 100 MG/4 ML UDCUP PO SCH ×2 (08:35→17:41)
[2019-02-18] MEDS: FUROSEMIDE 40 MG/4 ML VIAL IV SCH ×2 (08:35→18:52)
[2019-02-18] MEDS ORDERED: LIDOCAINE 5% PATCH TRANSDERM SCH (09:00)
[2019-02-18] MEDS: ENOXAPARIN 40 MG/0.4 ML SYRINGE SUBCUT SCH (10:48)
[2019-02-18] MEDS: FAMOTIDINE 20 MG/2 ML VIAL IV SCH ×2 (10:51→22:40)
[2019-02-18] MEDS ORDERED: FUROSEMIDE 40 MG/4 ML VIAL IV PRN (10:57)
[2019-02-18] MEDS: DOXAZOSIN 1 MG TABLET PO SCH (11:58)
[2019-02-18] MEDS: cloNIDine 0.1 MG TABLET PO SCH (14:38)
[2019-02-18] MEDS: INSULIN GLARGINE 100 UNIT/ML SUBCUT SCH (17:41)
[2019-02-18] MEDS: LIDOCAINE 5% PATCH TRANSDERM SCH (22:17)
[2019-02-19] MEDS: POTASSIUM CHLORIDE 20 MEQ TABLET PO SCH ×2 (00:50→12:30)
[2019-02-19] MEDS: ALBUTEROL/IPRATROPIUM 3 ML NEB RESP TX SCH ×4 (00:52→19:55)
[2019-02-19 04:47] LABS: Basophils # 0.1 10*3/uL (0.0-0.2); Basophils % 0.4 % (0.0-0.8); Eosinophils # 0.1 10*3/uL (0.0-0.87); Eosinophils % 1.2 % (0.00-10.9); Hematocrit 27.2 VOL% (42.0-52.0); Hemoglobin 8.5 GM/DL (14.0-18.0); Immature Granulocytes % 0.5 %; Immature Granulocytes Absolute 0.06 #; Lymphocytes # 1.1 10*3/uL (1.4-4.0); Mean Corpuscular HGB Conc 31.3 GM/DL (32-36); Mean Corpuscular Volume 89.8 FL (87-102); Mean Platelet Volume 11.3 FL (9.6-12.0); Monocytes % 6.6 % (1.7-12.7); Neutrophils % 81.3 % (38.7-73.9); Platelet Count 258 T/CUMM (130-400); Red Blood Count 3.03 MC/CUMM (3.8-5.5); Red Cell Distribution Width 13.9 % (9.3-17.3); White Blood Count 11.1 T/CUMM (4-12)
[2019-02-19 05:22] LABS: Albumin 2.5 G/DL (3.4-5.0); Bilirubin,Total 1.4 MG/DL (0.2-1.0); Calcium 8.3 MG/DL (8.5-10.1); Osmolality,Calculated 288.4 MOS/KG (273-304); Total Protein 6.4 G/DL (6.4-8.3)
[2019-02-19] MEDS: GLIMEPIRIDE 4 MG TABLET PO SCH (06:25)
[2019-02-19] MEDS: BUDESONIDE 0.25 MG/2 ML NEB RESP TX SCH ×2 (07:29→19:55)
[2019-02-19] MEDS: NEBIVOLOL 10 MG TABLET PO SCH ×2 (09:00→20:51)
[2019-02-19] MEDS: CLORAZEPATE 3.75 MG TABLET PO SCH ×2 (09:00→16:41)
[2019-02-19] MEDS: DOCUSATE SODIUM 100 MG CAPSULE PO SCH ×2 (09:01→20:50)
[2019-02-19] MEDS: ISOSORBIDE DINITRATE 20 MG TABLET PO SCH ×3 (09:01→20:50)
[2019-02-19] MEDS: PANTOPRAZOLE 40 MG TABLET PO SCH (09:01)
[2019-02-19] MEDS: METOCLOPRAMIDE 5 MG TABLET PO SCH ×3 (09:01→16:41)
[2019-02-19] MEDS: CLOPIDOGREL 75 MG TABLET PO SCH (09:01)
[2019-02-19] MEDS: ASPIRIN EC 81 MG TABLET PO SCH (09:01)
[2019-02-19] MEDS: DILTIAZEM 90 MG TABLET PO SCH (09:01)
[2019-02-19] MEDS: THEOPHYLLINE ER (24 HR) 400 MG CAPSULE PO SCH (09:02)
[2019-02-19] MEDS: PHENYTOIN 100 MG/4 ML UDCUP PO SCH ×2 (09:02→16:41)
[2019-02-19] MEDS: FUROSEMIDE 40 MG/4 ML VIAL IV SCH ×2 (09:02→16:41)
[2019-02-19] MEDS: INSULIN LISPRO 100 UNIT/ML SUBCUT SCH ×4 (09:02→20:51)
[2019-02-19] MEDS: FAMOTIDINE 20 MG/2 ML VIAL IV SCH ×3 (10:44→21:48)
[2019-02-19] MEDS: ENOXAPARIN 40 MG/0.4 ML SYRINGE SUBCUT SCH (10:46)
[2019-02-19] MEDS: DOXAZOSIN 1 MG TABLET PO SCH (12:30)
[2019-02-19] MEDS: cloNIDine 0.1 MG TABLET PO SCH (12:31)
[2019-02-19] MEDS: INSULIN GLARGINE 100 UNIT/ML SUBCUT SCH (16:41)
[2019-02-19] MEDS: LIDOCAINE 5% PATCH TRANSDERM SCH (21:48)
[2019-02-20] MEDS: POTASSIUM CHLORIDE 20 MEQ TABLET PO SCH ×2 (00:25→13:27)
[2019-02-20] MEDS: ALBUTEROL/IPRATROPIUM 3 ML NEB RESP TX SCH ×4 (01:45→19:17)
[2019-02-20] MEDS: GLIMEPIRIDE 4 MG TABLET PO SCH (06:02)
[2019-02-20 06:23] LABS: Basophils % 0.3 % (0.0-0.8); Eosinophils # 0.1 10*3/uL (0.0-0.87); Eosinophils % 0.7 % (0.00-10.9); Hemoglobin 8.9 GM/DL (14.0-18.0); Immature Granulocytes % 0.6 %; Immature Granulocytes Absolute 0.07 #; Lymphocytes # 1.2 10*3/uL (1.4-4.0); Lymphocytes % 10.2 % (21.2-54.2); Mean Corpuscular HGB Conc 31.8 GM/DL (32-36); Mean Corpuscular Volume 88.3 FL (87-102); Mean Platelet Volume 11.7 FL (9.6-12.0); Monocytes % 6.3 % (1.7-12.7); Neutrophils % 81.9 % (38.7-73.9); Platelet Count 259 T/CUMM (130-400); Red Blood Count 3.17 MC/CUMM (3.8-5.5); Red Cell Distribution Width 13.9 % (9.3-17.3); White Blood Count 11.2 T/CUMM (4-12)
[2019-02-20 06:51] LABS: Calcium 8.5 MG/DL (8.5-10.1); Osmolality,Calculated 283.7 MOS/KG (273-304)
[2019-02-20] MEDS: BUDESONIDE 0.25 MG/2 ML NEB RESP TX SCH ×2 (07:11→19:17)
[2019-02-20] MEDS: CLORAZEPATE 3.75 MG TABLET PO SCH ×2 (08:45→16:44)
[2019-02-20] MEDS: CLOPIDOGREL 75 MG TABLET PO SCH (08:45)
[2019-02-20] MEDS: ISOSORBIDE DINITRATE 20 MG TABLET PO SCH ×3 (08:45→20:30)
[2019-02-20] MEDS: ASPIRIN EC 81 MG TABLET PO SCH (08:45)
[2019-02-20] MEDS: THEOPHYLLINE ER (24 HR) 400 MG CAPSULE PO SCH (08:45)
[2019-02-20] MEDS: NEBIVOLOL 10 MG TABLET PO SCH ×2 (08:45→20:29)
[2019-02-20] MEDS: DOCUSATE SODIUM 100 MG CAPSULE PO SCH ×2 (08:45→20:29)
[2019-02-20] MEDS: PANTOPRAZOLE 40 MG TABLET PO SCH (08:46)
[2019-02-20] MEDS: DILTIAZEM 90 MG TABLET PO SCH (08:46)
[2019-02-20] MEDS: INSULIN LISPRO 100 UNIT/ML SUBCUT SCH ×4 (08:46→20:29)
[2019-02-20] MEDS: FUROSEMIDE 40 MG/4 ML VIAL IV SCH (08:46)
[2019-02-20] MEDS: METOCLOPRAMIDE 5 MG TABLET PO SCH ×3 (08:46→16:44)
[2019-02-20] MEDS: PHENYTOIN 100 MG/4 ML UDCUP PO SCH ×2 (08:46→16:44)
[2019-02-20] MEDS: FAMOTIDINE 20 MG/2 ML VIAL IV SCH ×2 (10:24→23:28)
[2019-02-20] MEDS: ENOXAPARIN 40 MG/0.4 ML SYRINGE SUBCUT SCH (10:25)
[2019-02-20] MEDS: ACETAMINOPHEN 325 MG TABLET PO PRN ×2 (11:55→18:26)
[2019-02-20] MEDS: cloNIDine 0.1 MG TABLET PO SCH (13:27)
[2019-02-20] MEDS: DOXAZOSIN 1 MG TABLET PO SCH (13:27)
[2019-02-20] MEDS: INSULIN GLARGINE 100 UNIT/ML SUBCUT SCH (16:45)
[2019-02-20] MEDS: cefTRIAXone 1,000 MG in SYRINGE 1 EACH IV SCH (16:55)
[2019-02-20 19:02] LABS: Apearance,Urine CLEAR (Clear); Bilirubin,Urine Negative (Negative); Blood, Urine Moderate mg/dL (Negative); Glucose,Urine (UA) Negative (Negative); Ketones,Urine Negative (Negative); Mucus,Urine Occasional /LPF (Occasional); Nitrite,Urine Negative (Negative); Protein,Urine 100 MG/DL; RBC,Urine 269 /HPF (0-4); Urine Color Yellow (Yellow); Urine Specific Gravity 1.014 (1.001-1.035); Urine Urobilinogen < 2.0 EU/DL (0.2-1.0); WBC,Urine 9 /HPF (0-6)
[2019-02-20] MEDS: LIDOCAINE 5% PATCH TRANSDERM SCH (20:30)
[2019-02-21] MEDS: ALBUTEROL/IPRATROPIUM 3 ML NEB RESP TX SCH ×4 (00:49→19:15)
[2019-02-21] MEDS: ACETAMINOPHEN 325 MG TABLET PO PRN (01:12)
[2019-02-21] MEDS: POTASSIUM CHLORIDE 20 MEQ TABLET PO SCH ×2 (01:12→12:52)
[2019-02-21] MEDS: GLIMEPIRIDE 4 MG TABLET PO SCH (06:12)
[2019-02-21 06:22] LABS: Basophils # 0.1 10*3/uL (0.0-0.2); Basophils % 0.4 % (0.0-0.8); Eosinophils # 0.1 10*3/uL (0.0-0.87); Eosinophils % 0.9 % (0.00-10.9); Hematocrit 30.2 VOL% (42.0-52.0); Hemoglobin 9.6 GM/DL (14.0-18.0); Immature Granulocytes % 0.6 %; Immature Granulocytes Absolute 0.09 #; Lymphocytes # 1.2 10*3/uL (1.4-4.0); Lymphocytes % 8.2 % (21.2-54.2); Mean Corpuscular HGB Conc 31.8 GM/DL (32-36); Mean Corpuscular Volume 89.3 FL (87-102); Mean Platelet Volume 11.4 FL (9.6-12.0); Monocytes % 4.9 % (1.7-12.7); Platelet Count 246 T/CUMM (130-400); Red Blood Count 3.38 MC/CUMM (3.8-5.5); Red Cell Distribution Width 13.9 % (9.3-17.3)
[2019-02-21 06:45] LABS: Calcium 8.5 MG/DL (8.5-10.1); Osmolality,Calculated 276.1 MOS/KG (273-304)
[2019-02-21] MEDS ORDERED: KETOROLAC 15 MG/1 ML VIAL IV ONE (07:28)
[2019-02-21] MEDS: BUDESONIDE 0.25 MG/2 ML NEB RESP TX SCH ×2 (07:39→19:15)
[2019-02-21] MEDS: INSULIN LISPRO 100 UNIT/ML SUBCUT SCH ×4 (08:19→23:12)
[2019-02-21] MEDS ORDERED: FUROSEMIDE 40 MG TABLET PO SCH (09:00)
[2019-02-21] MEDS: DILTIAZEM 90 MG TABLET PO SCH (09:07)
[2019-02-21] MEDS: PHENYTOIN 100 MG/4 ML UDCUP PO SCH ×2 (09:07→16:19)
[2019-02-21] MEDS: DOCUSATE SODIUM 100 MG CAPSULE PO SCH ×2 (09:07→21:57)
[2019-02-21] MEDS: THEOPHYLLINE ER (24 HR) 400 MG CAPSULE PO SCH (09:08)
[2019-02-21] MEDS: ASPIRIN EC 81 MG TABLET PO SCH (09:08)
[2019-02-21] MEDS: CLORAZEPATE 3.75 MG TABLET PO SCH ×2 (09:08→16:19)
[2019-02-21] MEDS: METOCLOPRAMIDE 5 MG TABLET PO SCH ×3 (09:08→16:19)
[2019-02-21] MEDS: NEBIVOLOL 10 MG TABLET PO SCH ×2 (09:08→21:57)
[2019-02-21] MEDS: PANTOPRAZOLE 40 MG TABLET PO SCH (09:09)
[2019-02-21] MEDS: CLOPIDOGREL 75 MG TABLET PO SCH (09:09)
[2019-02-21] MEDS: ISOSORBIDE DINITRATE 20 MG TABLET PO SCH ×3 (09:09→21:57)
[2019-02-21] MEDS: FAMOTIDINE 20 MG/2 ML VIAL IV SCH ×2 (09:30→21:56)
[2019-02-21] MEDS: ENOXAPARIN 40 MG/0.4 ML SYRINGE SUBCUT SCH (09:31)
[2019-02-21] MEDS: DOXAZOSIN 1 MG TABLET PO SCH (11:48)
[2019-02-21] MEDS: cloNIDine 0.1 MG TABLET PO SCH (12:45)
[2019-02-21] MEDS: INSULIN GLARGINE 100 UNIT/ML SUBCUT SCH (15:15)
[2019-02-21] MEDS: cefTRIAXone 1,000 MG in SYRINGE 1 EACH IV SCH (16:19)
[2019-02-21] MEDS: ONDANSETRON 4 MG/2 ML VIAL IV PRN (20:05)
[2019-02-21] MEDS ORDERED: hydrALAZINE 20 MG/1 ML VIAL IV ONE (20:15)
[2019-02-21 20:24] LABS: ABG Base Excess 2.8 MMOL/L (-2.5-2.5); ABG HCO3 26.9 MMOL/L (20-26); ABG Oxygen Saturation 98.9 % (95-100); ABG PCO2 46.3 MM HG (35-48); ABG PH 7.393 (7.35-7.45); ABG TCO2 25.4 MMOL/L (23-27); Allen Test Positive; Pt O2 Delivery Device Other
[2019-02-21] MEDS ORDERED: FUROSEMIDE 40 MG/4 ML VIAL IV ONE (20:59)
[2019-02-21] MEDS: PIPERACILLIN/TAZOBACTAM 3,375 MG in SODIUM CHLORIDE 0.9% 100 ML IV SCH (21:00)
[2019-02-21] MEDS ORDERED: LEVALBUTEROL 1.25 MG/3 ML NEB RESP TX ONE (21:07)
[2019-02-21 21:17] LABS: Basophils # 0.1 10*3/uL (0.0-0.2); Basophils % 0.4 % (0.0-0.8); Eosinophils # 0.1 10*3/uL (0.0-0.87); Eosinophils % 0.8 % (0.00-10.9); Hematocrit 34.2 VOL% (42.0-52.0); Hemoglobin 10.5 GM/DL (14.0-18.0); Immature Granulocytes % 0.8 %; Immature Granulocytes Absolute 0.13 #; Lymphocytes # 1.2 10*3/uL (1.4-4.0); Lymphocytes % 7.3 % (21.2-54.2); Mean Corpuscular HGB Conc 30.7 GM/DL (32-36); Mean Corpuscular Volume 89.5 FL (87-102); Mean Platelet Volume 10.6 FL (9.6-12.0); Monocytes % 5.6 % (1.7-12.7); Neutrophils % 85.1 % (38.7-73.9); Platelet Count 280 T/CUMM (130-400); Red Blood Count 3.82 MC/CUMM (3.8-5.5); Red Cell Distribution Width 13.9 % (9.3-17.3); White Blood Count 17.1 T/CUMM (4-12)
[2019-02-21 22:15] LABS: Apearance,Urine CLEAR (Clear); Bilirubin,Urine Negative (Negative); Blood, Urine Negative (Negative); Glucose,Urine (UA) Negative (Negative); Ketones,Urine Negative (Negative); Mucus,Urine Occasional /LPF (Occasional); Nitrite,Urine Negative (Negative); Protein,Urine 100 MG/DL; RBC,Urine 4 /HPF (0-4); Squamous Epithelial Cell,Urine Occasional /HPF (0-10); Urine Color Yellow (Yellow); Urine Specific Gravity 1.014 (1.001-1.035); Urine Urobilinogen < 2.0 EU/DL (0.2-1.0); WBC,Urine 4 /HPF (0-6)
[2019-02-21] MEDS: LIDOCAINE 5% PATCH TRANSDERM SCH (23:12)
[2019-02-21] MEDS: methylPREDNISolone SOD SUC 40 MG/1 ML VIAL IV SCH (23:21)
[2019-02-22] MEDS: POTASSIUM CHLORIDE 20 MEQ TABLET PO SCH (00:52)
[2019-02-22] MEDS: ALBUTEROL/IPRATROPIUM 3 ML NEB RESP TX SCH ×4 (01:16→20:16)
[2019-02-22 03:41] LABS: ABG HCO3 26.2 MMOL/L (20-26); ABG Oxygen Saturation 96.3 % (95-100); ABG PCO2 47.6 MM HG (35-48); ABG PH 7.373 (7.35-7.45); ABG PO2 82.7 MM HG (80-95); ABG TCO2 25.6 MMOL/L (23-27); Allen Test Positive
[2019-02-22] MEDS: methylPREDNISolone SOD SUC 40 MG/1 ML VIAL IV SCH ×4 (04:10→21:46)
[2019-02-22] MEDS: PIPERACILLIN/TAZOBACTAM 3,375 MG in SODIUM CHLORIDE 0.9% 100 ML IV SCH ×3 (04:11→21:46)
[2019-02-22 04:14] LABS: Albumin 2.4 G/DL (3.4-5.0); Bilirubin,Total 0.9 MG/DL (0.2-1.0); Calcium 8.4 MG/DL (8.5-10.1); Osmolality,Calculated 282.7 MOS/KG (273-304); Total Protein 6.8 G/DL (6.4-8.3)
[2019-02-22] MEDS: GLIMEPIRIDE 4 MG TABLET PO SCH (05:29)
[2019-02-22] MEDS: dilTIAZem Drip 125 MG/125 ML PREMIX IV SCH ×2 (07:00→22:58)
[2019-02-22] MEDS: BUDESONIDE 0.25 MG/2 ML NEB RESP TX SCH ×2 (07:24→20:16)
[2019-02-22] MEDS: INSULIN LISPRO 100 UNIT/ML SUBCUT SCH ×4 (07:24→21:45)
[2019-02-22] MEDS: ASPIRIN EC 81 MG TABLET PO SCH (08:45)
[2019-02-22] MEDS: ENOXAPARIN 40 MG/0.4 ML SYRINGE SUBCUT SCH (08:45)
[2019-02-22] MEDS: LANSOPRAZOLE ODT 30 MG TABLET PO SCH (08:45)
[2019-02-22] MEDS: PHENYTOIN 100 MG/4 ML UDCUP PO SCH ×2 (08:45→17:00)
[2019-02-22] MEDS: NEBIVOLOL 10 MG TABLET PO SCH ×2 (08:45→21:44)
[2019-02-22] MEDS: ISOSORBIDE DINITRATE 20 MG TABLET PO SCH ×3 (08:45→21:45)
[2019-02-22] MEDS: DOCUSATE SODIUM 100 MG CAPSULE PO SCH ×2 (08:45→21:45)
[2019-02-22] MEDS: CLORAZEPATE 3.75 MG TABLET PO SCH ×2 (08:45→17:00)
[2019-02-22] MEDS: CLOPIDOGREL 75 MG TABLET PO SCH (08:45)
[2019-02-22] MEDS: POTASSIUM CHLORIDE 20 MEQ/15 ML UDCUP PER TUBE SCH ×2 (08:45→21:46)
[2019-02-22] MEDS: METOCLOPRAMIDE 5 MG TABLET PO SCH ×3 (08:45→17:00)
[2019-02-22] MEDS: FUROSEMIDE 40 MG/4 ML VIAL IV SCH (09:45)
[2019-02-22] MEDS: THEOPHYLLINE 5.33 MG/ML 30 ML/BOTTLE PO SCH ×2 (09:50→17:00)
[2019-02-22] MEDS: FAMOTIDINE 20 MG/2 ML VIAL IV SCH ×2 (09:50→23:08)
[2019-02-22] MEDS: DOXAZOSIN 1 MG TABLET PO SCH (12:05)
[2019-02-22] MEDS: cloNIDine 0.1 MG TABLET PO SCH (13:05)
[2019-02-22] MEDS: INSULIN GLARGINE 100 UNIT/ML SUBCUT SCH (16:30)
[2019-02-23] MEDS: LIDOCAINE 5% PATCH TRANSDERM SCH (00:41)
[2019-02-23] MEDS: THEOPHYLLINE 5.33 MG/ML 30 ML/BOTTLE PO SCH ×3 (01:14→17:50)
[2019-02-23] MEDS: ALBUTEROL/IPRATROPIUM 3 ML NEB RESP TX SCH ×4 (01:28→19:09)
[2019-02-23 04:26] LABS: Basophils % 0.2 % (0.0-0.8); Hematocrit 28.6 VOL% (42.0-52.0); Hemoglobin 9.2 GM/DL (14.0-18.0); Immature Granulocytes % 0.9 %; Immature Granulocytes Absolute 0.13 #; Lymphocytes # 0.8 10*3/uL (1.4-4.0); Lymphocytes % 5.5 % (21.2-54.2); Mean Corpuscular HGB Conc 32.2 GM/DL (32-36); Mean Corpuscular Volume 88.5 FL (87-102); Mean Platelet Volume 11.4 FL (9.6-12.0); Monocytes % 7.3 % (1.7-12.7); Neutrophils % 86.1 % (38.7-73.9); Platelet Count 251 T/CUMM (130-400); Red Blood Count 3.23 MC/CUMM (3.8-5.5); Red Cell Distribution Width 13.7 % (9.3-17.3)
[2019-02-23 04:46] LABS: Calcium 8.5 MG/DL (8.5-10.1); Osmolality,Calculated 293.4 MOS/KG (273-304)
[2019-02-23] MEDS: methylPREDNISolone SOD SUC 40 MG/1 ML VIAL IV SCH ×4 (04:48→21:46)
[2019-02-23] MEDS: PIPERACILLIN/TAZOBACTAM 3,375 MG in SODIUM CHLORIDE 0.9% 100 ML IV SCH ×3 (04:48→21:47)
[2019-02-23] MEDS: GLIMEPIRIDE 4 MG TABLET PO SCH (06:27)
[2019-02-23] MEDS: BUDESONIDE 0.25 MG/2 ML NEB RESP TX SCH ×2 (07:28→19:09)
[2019-02-23] MEDS: PHENYTOIN 100 MG/4 ML UDCUP PO SCH ×2 (11:09→17:50)
[2019-02-23] MEDS: POTASSIUM CHLORIDE 20 MEQ/15 ML UDCUP PER TUBE SCH ×2 (11:09→21:43)
[2019-02-23] MEDS: CLORAZEPATE 3.75 MG TABLET PO SCH ×2 (11:14→17:51)
[2019-02-23] MEDS: CLOPIDOGREL 75 MG TABLET PO SCH (11:14)
[2019-02-23] MEDS: METOCLOPRAMIDE 5 MG TABLET PO SCH ×3 (11:14→17:51)
[2019-02-23] MEDS: FAMOTIDINE 20 MG/2 ML VIAL IV SCH ×2 (11:15→21:56)
[2019-02-23] MEDS: NEBIVOLOL 10 MG TABLET PO SCH ×2 (11:15→21:45)
[2019-02-23] MEDS: FUROSEMIDE 40 MG/4 ML VIAL IV SCH (11:15)
[2019-02-23] MEDS: ISOSORBIDE DINITRATE 20 MG TABLET PO SCH ×3 (11:15→21:45)
[2019-02-23] MEDS: LANSOPRAZOLE ODT 30 MG TABLET PO SCH (11:15)
[2019-02-23] MEDS: INSULIN LISPRO 100 UNIT/ML SUBCUT SCH ×4 (11:16→21:46)
[2019-02-23] MEDS: ENOXAPARIN 40 MG/0.4 ML SYRINGE SUBCUT SCH (11:24)
[2019-02-23] MEDS: DOCUSATE SODIUM 100 MG CAPSULE PO SCH (11:57)
[2019-02-23] MEDS: ASPIRIN EC 81 MG TABLET PO SCH (11:57)
[2019-02-23] MEDS: ASPIRIN CHEW 81 MG TABLET PO SCH (14:36)
[2019-02-23] MEDS: DOXAZOSIN 1 MG TABLET PO SCH (14:36)
[2019-02-23] MEDS: cloNIDine 0.1 MG TABLET PO SCH (14:36)
[2019-02-23] MEDS: INSULIN GLARGINE 100 UNIT/ML SUBCUT SCH (17:50)
[2019-02-23] MEDS: DOCUSATE SODIUM 100 MG/10 ML UDCUP PO SCH (21:45)
[2019-02-23] MEDS: dilTIAZem Drip 125 MG/125 ML PREMIX IV SCH (23:35)
[2019-02-24] MEDS: THEOPHYLLINE 5.33 MG/ML 30 ML/BOTTLE PO SCH ×3 (00:09→19:12)
[2019-02-24] MEDS: LIDOCAINE 5% PATCH TRANSDERM SCH ×2 (00:09→21:24)
[2019-02-24] MEDS: ALBUTEROL/IPRATROPIUM 3 ML NEB RESP TX SCH ×4 (00:38→19:48)
[2019-02-24] MEDS: methylPREDNISolone SOD SUC 40 MG/1 ML VIAL IV SCH ×4 (04:24→21:25)
[2019-02-24] MEDS: PIPERACILLIN/TAZOBACTAM 3,375 MG in SODIUM CHLORIDE 0.9% 100 ML IV SCH ×3 (04:25→22:08)
[2019-02-24 06:00] LABS: Basophils % 0.3 % (0.0-0.8); Hematocrit 27.3 VOL% (42.0-52.0); Hemoglobin 8.6 GM/DL (14.0-18.0); Immature Granulocytes % 1.1 %; Immature Granulocytes Absolute 0.12 #; Lymphocytes # 0.9 10*3/uL (1.4-4.0); Lymphocytes % 7.7 % (21.2-54.2); Mean Corpuscular HGB Conc 31.5 GM/DL (32-36); Mean Corpuscular Volume 89.5 FL (87-102); Mean Platelet Volume 11.2 FL (9.6-12.0); Neutrophils % 83.9 % (38.7-73.9); Platelet Count 263 T/CUMM (130-400); Red Blood Count 3.05 MC/CUMM (3.8-5.5); Red Cell Distribution Width 14.1 % (9.3-17.3); White Blood Count 11.1 T/CUMM (4-12)
[2019-02-24 06:26] LABS: Calcium 8.3 MG/DL (8.5-10.1); Osmolality,Calculated 297.3 MOS/KG (273-304)
[2019-02-24] MEDS: GLIMEPIRIDE 4 MG TABLET PO SCH (06:30)
[2019-02-24] MEDS: BUDESONIDE 0.25 MG/2 ML NEB RESP TX SCH ×2 (07:27→19:48)
[2019-02-24] MEDS: INSULIN LISPRO 100 UNIT/ML SUBCUT SCH ×4 (08:36→21:24)
[2019-02-24] MEDS: FUROSEMIDE 40 MG/4 ML VIAL IV SCH (08:40)
[2019-02-24] MEDS: DOCUSATE SODIUM 100 MG/10 ML UDCUP PO SCH ×2 (08:40→21:23)
[2019-02-24] MEDS: POTASSIUM CHLORIDE 20 MEQ/15 ML UDCUP PER TUBE SCH ×2 (08:40→21:23)
[2019-02-24] MEDS: PHENYTOIN 100 MG/4 ML UDCUP PO SCH ×2 (08:40→16:29)
[2019-02-24] MEDS: NEBIVOLOL 10 MG TABLET PO SCH ×2 (08:42→21:23)
[2019-02-24] MEDS: CLOPIDOGREL 75 MG TABLET PO SCH (08:42)
[2019-02-24] MEDS: METOCLOPRAMIDE 5 MG TABLET PO SCH ×3 (08:42→16:27)
[2019-02-24] MEDS: ISOSORBIDE DINITRATE 20 MG TABLET PO SCH ×3 (08:43→21:23)
[2019-02-24] MEDS: LANSOPRAZOLE ODT 30 MG TABLET PO SCH (08:43)
[2019-02-24] MEDS: CLORAZEPATE 3.75 MG TABLET PO SCH ×2 (08:43→16:29)
[2019-02-24] MEDS: ASPIRIN CHEW 81 MG TABLET PO SCH (08:43)
[2019-02-24] MEDS: FAMOTIDINE 20 MG/2 ML VIAL IV SCH ×2 (10:42→21:38)
[2019-02-24] MEDS: ENOXAPARIN 40 MG/0.4 ML SYRINGE SUBCUT SCH (10:42)
[2019-02-24] MEDS: DOXAZOSIN 1 MG TABLET PO SCH (12:59)
[2019-02-24] MEDS: cloNIDine 0.1 MG TABLET PO SCH (12:59)
[2019-02-24] MEDS: INSULIN GLARGINE 100 UNIT/ML SUBCUT SCH (16:32)
[2019-02-24] MEDS: dilTIAZem Drip 125 MG/125 ML PREMIX IV SCH (21:25)
[2019-02-24] MEDS: ONDANSETRON 4 MG/2 ML VIAL IV PRN (21:27)
[2019-02-25] MEDS: ALBUTEROL/IPRATROPIUM 3 ML NEB RESP TX SCH ×3 (01:53→12:40)
[2019-02-25] MEDS: THEOPHYLLINE 5.33 MG/ML 30 ML/BOTTLE PO SCH ×3 (02:48→16:38)
[2019-02-25] MEDS: methylPREDNISolone SOD SUC 40 MG/1 ML VIAL IV SCH ×3 (02:49→15:43)
[2019-02-25 04:19] LABS: Basophils % 0.2 % (0.0-0.8); Hematocrit 29.7 VOL% (42.0-52.0); Immature Granulocytes % 1.2 %; Immature Granulocytes Absolute 0.15 #; Lymphocytes # 0.8 10*3/uL (1.4-4.0); Lymphocytes % 6.7 % (21.2-54.2); Mean Corpuscular HGB Conc 30.3 GM/DL (32-36); Mean Corpuscular Volume 90.3 FL (87-102); Mean Platelet Volume 10.8 FL (9.6-12.0); Monocytes % 6.4 % (1.7-12.7); Neutrophils % 85.5 % (38.7-73.9); Platelet Count 286 T/CUMM (130-400); Red Blood Count 3.29 MC/CUMM (3.8-5.5); Red Cell Distribution Width 13.9 % (9.3-17.3); White Blood Count 12.3 T/CUMM (4-12)
[2019-02-25 04:39] LABS: Albumin 2.4 G/DL (3.4-5.0); Calcium 8.8 MG/DL (8.5-10.1); Osmolality,Calculated 289.7 MOS/KG (273-304); Total Protein 6.5 G/DL (6.4-8.3)
[2019-02-25] MEDS: GLIMEPIRIDE 4 MG TABLET PO SCH (05:58)
[2019-02-25] MEDS: PIPERACILLIN/TAZOBACTAM 3,375 MG in SODIUM CHLORIDE 0.9% 100 ML IV SCH ×2 (05:58→12:35)
[2019-02-25] MEDS: BUDESONIDE 0.25 MG/2 ML NEB RESP TX SCH (06:46)
[2019-02-25 07:05] VITALS: BP 181/76
[2019-02-25] MEDS: PHENYTOIN 100 MG/4 ML UDCUP PO SCH ×2 (08:52→16:30)
[2019-02-25] MEDS: ASPIRIN CHEW 81 MG TABLET PO SCH (08:52)
[2019-02-25] MEDS: LANSOPRAZOLE ODT 30 MG TABLET PO SCH (08:52)
[2019-02-25] MEDS: ISOSORBIDE DINITRATE 20 MG TABLET PO SCH ×2 (08:52→15:43)
[2019-02-25] MEDS: NEBIVOLOL 10 MG TABLET PO SCH (08:52)
[2019-02-25] MEDS: DOCUSATE SODIUM 100 MG/10 ML UDCUP PO SCH (08:52)
[2019-02-25] MEDS: CLORAZEPATE 3.75 MG TABLET PO SCH ×2 (08:52→16:30)
[2019-02-25] MEDS: METOCLOPRAMIDE 5 MG TABLET PO SCH ×3 (08:52→16:30)
[2019-02-25] MEDS: CLOPIDOGREL 75 MG TABLET PO SCH (08:52)
[2019-02-25] MEDS: FUROSEMIDE 40 MG/4 ML VIAL IV SCH (08:53)
[2019-02-25] MEDS: POTASSIUM CHLORIDE 20 MEQ/15 ML UDCUP PER TUBE SCH (08:54)
[2019-02-25] MEDS: INSULIN LISPRO 100 UNIT/ML SUBCUT SCH ×3 (09:05→16:30)
[2019-02-25] MEDS: FAMOTIDINE 20 MG/2 ML VIAL IV SCH (09:43)
[2019-02-25] MEDS: ENOXAPARIN 40 MG/0.4 ML SYRINGE SUBCUT SCH (09:43)
[2019-02-25] MEDS: cloNIDine 0.1 MG TABLET PO SCH (12:24)
[2019-02-25] MEDS: DOXAZOSIN 1 MG TABLET PO SCH (12:24)
[2019-02-25] MEDS ORDERED: INSULIN GLARGINE 100 UNIT/ML SUBCUT SCH (16:00)
== END 2019-02-25 18:19 | DRG 189 ==
LOC: EDBD → EDUNIT# → N.ED 08:46 → N.EDINP 10:04 → SUATTDRO 10:04 → N.ICU 10:45 → N.TELEN 02-18 18:34 → N.ICU 02-21 20:41
PROVIDERS: ADMIT Internal Medicine; ATTEND Internal Medicine

== ENCOUNTER 2019-04-06 04:25 | Inpatient (IN) ==
[2019-04-06 05:14] LABS: Basophils # 0.1 10*3/uL (0.0-0.2); Basophils % 0.6 % (0.0-0.8); Eosinophils % 0.1 % (0.00-10.9); Hematocrit 29.7 VOL% (42.0-52.0); Hemoglobin 9.4 GM/DL (14.0-18.0); Immature Granulocytes % 0.7 %; Immature Granulocytes Absolute 0.13 #; Lymphocytes # 2.7 10*3/uL (1.4-4.0); Lymphocytes % 14.2 % (21.2-54.2); Mean Corpuscular HGB Conc 31.6 GM/DL (32-36); Mean Corpuscular Volume 85.8 FL (87-102); Mean Platelet Volume 9.2 FL (9.6-12.0); Monocytes % 3.8 % (1.7-12.7); Neutrophils % 80.6 % (38.7-73.9); Platelet Count 581 T/CUMM (130-400); Red Blood Count 3.46 MC/CUMM (3.8-5.5); Red Cell Distribution Width 15.1 % (9.3-17.3); White Blood Count 19.3 T/CUMM (4-12)
[2019-04-06] MEDS ORDERED: ALBUTEROL/IPRATROPIUM 3 ML NEB RESP TX STA (05:16)
[2019-04-06 05:21] LABS: ABG Base Excess 2.5 MMOL/L (-2.5-2.5); ABG HCO3 26.6 MMOL/L (20-26); ABG Oxygen Saturation 95.5 % (95-100); ABG PCO2 39.4 MM HG (35-48); ABG TCO2 24.4 MMOL/L (23-27); Allen Test Positive
[2019-04-06 05:27] LABS: PT Patient Result 10.6 SECS
[2019-04-06 05:30] LABS: Alanine Aminotransferase 38 U/L (16-61); Albumin 2.8 G/DL (3.4-5.0); Alkaline Phosphatase 90 U/L (45-117); Aspartate Amino Transferase 23 U/L (0-37); Bilirubin,Total < 0.39 MG/DL (0.2-1.0); Blood Urea Nitrogen 24 MG/DL (7-18); Glucose 225 MG/DL (74-106); Osmolality,Calculated 287.5 MOS/KG (273-304); Total Protein 7.2 G/DL (6.4-8.3)
[2019-04-06] MEDS ORDERED: SODIUM CHLORIDE 0.9% 1,000 ML IV STA (06:11)
[2019-04-06] MEDS ORDERED: ONDANSETRON 4 MG/2 ML VIAL IV STA (06:11)
[2019-04-06] MEDS ORDERED: cefTRIAXone 2,000 MG in SODIUM CHLORIDE 0.9% 100 ML IV ONE (06:12)
[2019-04-06] MEDS ORDERED: metroNIDAZOLE INJ 500 MG in PREMIX 1 EACH IV STA (06:12)
[2019-04-06] MEDS ORDERED: cefTRIAXone 2,000 MG in SYRINGE 1 EACH IV ONE (06:30)
[2019-04-06] MEDS ORDERED: ALBUTEROL 2.5 MG/3 ML NEB RESP TX SCH (06:30)
[2019-04-06] MEDS ORDERED: DEXTROSE 50% 25 GM/50 ML VIAL IV PRN (08:15)
[2019-04-06] MEDS ORDERED: GLUCAGON 1 MG VIAL IM PRN (08:15)
[2019-04-06] MEDS ORDERED: FAMOTIDINE 20 MG/2 ML VIAL IV SCH (09:00)
[2019-04-06 09:04] LABS: Hematocrit 29.3 VOL% (42.0-52.0)
[2019-04-06] MEDS: PHENYTOIN 100 MG/2 ML VIAL IV SCH ×2 (09:10→17:32)
[2019-04-06] MEDS: LEVOFLOXACIN INJ 750 MG in PREMIX 1 EACH IV SCH (09:21)
[2019-04-06 09:25] LABS: Troponin I < 0.015 NG/ML (0.00-0.045)
[2019-04-06] MEDS ORDERED: SODIUM CHLORIDE 0.9% 1,000 ML IV PRN (09:37)
[2019-04-06] MEDS ORDERED: PANTOPRAZOLE INJ 200 MG in SODIUM CHLORIDE 0.9% 250 ML IV SCH (10:00)
[2019-04-06] MEDS ORDERED: PNEUMOCOCCAL VACCINE (23 VALENT) 0.5 ML VIAL IM ONE (10:06)
[2019-04-06] MEDS: DEXTROSE 5% NACL 0.9% 1,000 ML IV SCH ×3 (11:27→21:31)
[2019-04-06] MEDS: VANCOMYCIN INJ 1,250 MG in SODIUM CHLORIDE 0.9% 250 ML IV SCH ×2 (13:31→21:30)
[2019-04-06 13:33] LABS: Apearance,Urine CLOUDY (Clear); Bilirubin,Urine Negative (Negative); Blood, Urine Negative (Negative); Glucose,Urine (UA) Negative (Negative); Ketones,Urine 5 mg/dL (Negative); Mucus,Urine Occasional /LPF (Occasional); Nitrite,Urine Negative (Negative); Protein,Urine 100 MG/DL; RBC,Urine 7 /HPF (0-4); Squamous Epithelial Cell,Urine Occasional /HPF (0-10); Urine Color Yellow (Yellow); Urine Specific Gravity 1.015 (1.001-1.035); Urine Urobilinogen < 2.0 EU/DL (0.2-1.0); WBC,Urine 398 /HPF (0-6)
[2019-04-06] MEDS: INSULIN REGULAR 100 UNIT/ML SUBCUT SCH ×3 (14:59→19:12)
[2019-04-06] MEDS: METOCLOPRAMIDE 10 MG/2 ML VIAL IV SCH ×2 (15:05→17:39)
[2019-04-07] MEDS: INSULIN REGULAR 100 UNIT/ML SUBCUT SCH ×5 (00:15→23:50)
[2019-04-07] MEDS: METOCLOPRAMIDE 10 MG/2 ML VIAL IV SCH ×5 (00:56→23:40)
[2019-04-07] MEDS: PHENYTOIN 100 MG/2 ML VIAL IV SCH ×4 (00:58→23:40)
[2019-04-07 05:27] LABS: Basophils # 0.1 10*3/uL (0.0-0.2); Basophils % 0.3 % (0.0-0.8); Eosinophils # 0.1 10*3/uL (0.0-0.87); Eosinophils % 0.5 % (0.00-10.9); Hematocrit 23.5 VOL% (42.0-52.0); Hemoglobin 7.2 GM/DL (14.0-18.0); Immature Granulocytes % 1.5 %; Immature Granulocytes Absolute 0.39 #; Lymphocytes # 3.2 10*3/uL (1.4-4.0); Lymphocytes % 12.3 % (21.2-54.2); Mean Corpuscular HGB Conc 30.6 GM/DL (32-36); Mean Platelet Volume 9.2 FL (9.6-12.0); Monocytes % 5.2 % (1.7-12.7); Neutrophils % 80.2 % (38.7-73.9); Platelet Count 412 T/CUMM (130-400); Red Blood Count 2.67 MC/CUMM (3.8-5.5); Red Cell Distribution Width 15.3 % (9.3-17.3); White Blood Count 26.3 T/CUMM (4-12)
[2019-04-07 06:19] LABS: Band Neutrophils 1 % (0-10); Lymphocytes 9 % (20-55); Segmented Neutrophils 89 % (50-85); Total Cells Counted 100
[2019-04-07 06:20] LABS: Platelet Estimate Normal; Polychromasia Few
[2019-04-07] MEDS ORDERED: SODIUM CHLORIDE 0.9% 1,000 ML IV PRN (06:41)
[2019-04-07] MEDS ORDERED: FUROSEMIDE 20 MG/2 ML VIAL IV PRN (06:41)
[2019-04-07] MEDS ORDERED: LIDOCAINE 2% 5 ML VIAL ONE (09:00)
[2019-04-07] MEDS ORDERED: ETOMIDATE 20 MG/10 ML VIAL IV ONE (09:00)
[2019-04-07] MEDS ORDERED: MIDAZOLAM 2 MG/2 ML VIAL ONE (09:36)
[2019-04-07] MEDS: LEVOFLOXACIN INJ 750 MG in PREMIX 1 EACH IV SCH (10:50)
[2019-04-07] MEDS: DEXTROSE 5% NACL 0.9% 1,000 ML IV SCH ×3 (10:56→20:43)
[2019-04-07] MEDS: VANCOMYCIN INJ 1,250 MG in SODIUM CHLORIDE 0.9% 250 ML IV SCH ×2 (12:26→21:45)
[2019-04-07 17:31] LABS: Hematocrit 30.7 VOL% (42.0-52.0); Hemoglobin 9.5 GM/DL (14.0-18.0)
[2019-04-07] MEDS: ACETAMINOPHEN 500 MG TABLET PO SCH ×2 (17:34→21:44)
[2019-04-07] MEDS: ONDANSETRON 4 MG/2 ML VIAL IV PRN (18:39)
[2019-04-07] MEDS: PANTOPRAZOLE 40 MG TABLET PO SCH (19:17)
[2019-04-07] MEDS: ALBUTEROL/IPRATROPIUM 3 ML NEB RESP TX SCH (19:17)
[2019-04-07] MEDS ORDERED: FUROSEMIDE 40 MG/4 ML VIAL IV ONE (21:35)
[2019-04-07] MEDS: NEBIVOLOL 10 MG TABLET PO SCH (21:45)
[2019-04-07] MEDS: methylPREDNISolone SOD SUC 40 MG/1 ML VIAL IV SCH (21:51)
[2019-04-08] MEDS: ALBUTEROL/IPRATROPIUM 3 ML NEB RESP TX SCH ×4 (00:24→20:00)
[2019-04-08] MEDS: DEXTROSE 5% NACL 0.9% 1,000 ML IV SCH ×2 (04:35→15:28)
[2019-04-08 05:48] LABS: Basophils # 0.1 10*3/uL (0.0-0.2); Basophils % 0.4 % (0.0-0.8); Eosinophils # 0.1 10*3/uL (0.0-0.87); Eosinophils % 0.5 % (0.00-10.9); Hematocrit 26.9 VOL% (42.0-52.0); Hemoglobin 8.5 GM/DL (14.0-18.0); Immature Granulocytes % 1.6 %; Immature Granulocytes Absolute 0.31 #; Lymphocytes # 3.6 10*3/uL (1.4-4.0); Lymphocytes % 18.9 % (21.2-54.2); Mean Corpuscular HGB Conc 31.6 GM/DL (32-36); Mean Corpuscular Volume 88.2 FL (87-102); Mean Platelet Volume 9.2 FL (9.6-12.0); Monocytes % 5.1 % (1.7-12.7); Neutrophils % 73.5 % (38.7-73.9); Platelet Count 348 T/CUMM (130-400); Red Blood Count 3.05 MC/CUMM (3.8-5.5); Red Cell Distribution Width 14.7 % (9.3-17.3); White Blood Count 19.2 T/CUMM (4-12)
[2019-04-08 06:02] LABS: Osmolality,Calculated 283.4 MOS/KG (273-304)
[2019-04-08] MEDS: METOCLOPRAMIDE 10 MG/2 ML VIAL IV SCH ×3 (06:33→18:22)
[2019-04-08] MEDS: methylPREDNISolone SOD SUC 40 MG/1 ML VIAL IV SCH ×3 (06:34→21:21)
[2019-04-08] MEDS: INSULIN REGULAR 100 UNIT/ML SUBCUT SCH ×3 (06:38→18:21)
[2019-04-08] MEDS: PANTOPRAZOLE 40 MG TABLET PO SCH ×2 (06:39→21:20)
[2019-04-08] MEDS: BUDESONIDE 0.25 MG/2 ML NEB RESP TX SCH ×2 (06:53→20:00)
[2019-04-08] MEDS: NEBIVOLOL 10 MG TABLET PO SCH ×2 (09:49→21:20)
[2019-04-08] MEDS: LEVOFLOXACIN INJ 750 MG in PREMIX 1 EACH IV SCH (09:50)
[2019-04-08] MEDS: PHENYTOIN 100 MG/2 ML VIAL IV SCH ×2 (09:53→17:36)
[2019-04-08] MEDS: FUROSEMIDE 40 MG/4 ML VIAL IV SCH (09:55)
[2019-04-08] MEDS: ACETAMINOPHEN 500 MG TABLET PO SCH ×2 (09:57→21:20)
[2019-04-08] MEDS: VANCOMYCIN INJ 1,250 MG in SODIUM CHLORIDE 0.9% 250 ML IV SCH ×2 (11:18→21:20)
[2019-04-09] MEDS: METOCLOPRAMIDE 10 MG/2 ML VIAL IV SCH ×4 (01:21→18:12)
[2019-04-09] MEDS: INSULIN REGULAR 100 UNIT/ML SUBCUT SCH ×4 (01:23→18:28)
[2019-04-09] MEDS: PHENYTOIN 100 MG/2 ML VIAL IV SCH ×3 (01:25→15:30)
[2019-04-09] MEDS: DEXTROSE 5% NACL 0.9% 1,000 ML IV SCH ×2 (01:28→19:30)
[2019-04-09] MEDS: ALBUTEROL/IPRATROPIUM 3 ML NEB RESP TX SCH ×5 (02:50→19:00)
[2019-04-09 05:52] LABS: Basophils # 0.1 10*3/uL (0.0-0.2); Basophils % 0.4 % (0.0-0.8); Eosinophils # 0.1 10*3/uL (0.0-0.87); Eosinophils % 0.5 % (0.00-10.9); Hematocrit 29.8 VOL% (42.0-52.0); Hemoglobin 9.2 GM/DL (14.0-18.0); Immature Granulocytes % 0.8 %; Immature Granulocytes Absolute 0.12 #; Lymphocytes # 3.3 10*3/uL (1.4-4.0); Lymphocytes % 23.2 % (21.2-54.2); Mean Corpuscular HGB Conc 30.9 GM/DL (32-36); Mean Corpuscular Volume 89.5 FL (87-102); Mean Platelet Volume 9.6 FL (9.6-12.0); Neutrophils % 69.1 % (38.7-73.9); Platelet Count 376 T/CUMM (130-400); Red Blood Count 3.33 MC/CUMM (3.8-5.5); Red Cell Distribution Width 14.8 % (9.3-17.3); White Blood Count 14.2 T/CUMM (4-12)
[2019-04-09 06:15] LABS: Calcium 8.1 MG/DL (8.5-10.1); Osmolality,Calculated 284.4 MOS/KG (273-304)
[2019-04-09] MEDS: methylPREDNISolone SOD SUC 40 MG/1 ML VIAL IV SCH ×3 (06:54→21:27)
[2019-04-09] MEDS: BUDESONIDE 0.25 MG/2 ML NEB RESP TX SCH ×2 (07:47→19:00)
[2019-04-09] MEDS: NEBIVOLOL 10 MG TABLET PO SCH ×2 (08:17→21:27)
[2019-04-09] MEDS: PANTOPRAZOLE 40 MG TABLET PO SCH ×2 (08:17→21:27)
[2019-04-09] MEDS: FUROSEMIDE 40 MG/4 ML VIAL IV SCH (08:18)
[2019-04-09] MEDS: LEVOFLOXACIN INJ 750 MG in PREMIX 1 EACH IV SCH (08:18)
[2019-04-09] MEDS: ACETAMINOPHEN 500 MG TABLET PO SCH ×2 (08:18→21:27)
[2019-04-09] MEDS: VANCOMYCIN INJ 1,250 MG in SODIUM CHLORIDE 0.9% 250 ML IV SCH (10:42)
[2019-04-09] MEDS: METOCLOPRAMIDE 10 MG/10 ML UDCUP PO SCH (21:27)
[2019-04-10] MEDS: INSULIN REGULAR 100 UNIT/ML SUBCUT SCH ×4 (00:06→18:32)
[2019-04-10] MEDS: ALBUTEROL/IPRATROPIUM 3 ML NEB RESP TX SCH ×4 (00:40→18:55)
[2019-04-10] MEDS: ONDANSETRON 4 MG/2 ML VIAL IV PRN ×2 (05:31→11:15)
[2019-04-10] MEDS: methylPREDNISolone SOD SUC 40 MG/1 ML VIAL IV SCH ×3 (05:57→21:11)
[2019-04-10] MEDS: BUDESONIDE 0.25 MG/2 ML NEB RESP TX SCH ×2 (07:20→18:55)
[2019-04-10 07:26] LABS: Basophils # 0.1 10*3/uL (0.0-0.2); Basophils % 0.6 % (0.0-0.8); Eosinophils # 0.1 10*3/uL (0.0-0.87); Eosinophils % 0.9 % (0.00-10.9); Hemoglobin 9.2 GM/DL (14.0-18.0); Immature Granulocytes % 0.7 %; Lymphocytes # 3.5 10*3/uL (1.4-4.0); Lymphocytes % 24.8 % (21.2-54.2); Mean Corpuscular HGB Conc 30.7 GM/DL (32-36); Mean Corpuscular Volume 88.2 FL (87-102); Mean Platelet Volume 9.8 FL (9.6-12.0); Monocytes % 7.1 % (1.7-12.7); Neutrophils % 65.9 % (38.7-73.9); Platelet Count 414 T/CUMM (130-400); White Blood Count 14.1 T/CUMM (4-12)
[2019-04-10 07:57] LABS: Calcium 8.1 MG/DL (8.5-10.1); Osmolality,Calculated 283.1 MOS/KG (273-304)
[2019-04-10] MEDS: ACETAMINOPHEN 500 MG TABLET PO SCH ×2 (08:49→21:11)
[2019-04-10] MEDS: NEBIVOLOL 10 MG TABLET PO SCH ×2 (08:49→21:11)
[2019-04-10] MEDS: PHENYTOIN 100 MG/2 ML VIAL IV SCH ×3 (08:50→16:00)
[2019-04-10] MEDS: PANTOPRAZOLE 40 MG TABLET PO SCH ×2 (08:50→21:11)
[2019-04-10] MEDS: METOCLOPRAMIDE 10 MG/10 ML UDCUP PO SCH ×4 (08:50→21:11)
[2019-04-10] MEDS: FUROSEMIDE 40 MG/4 ML VIAL IV SCH (08:56)
[2019-04-10] MEDS: LEVOFLOXACIN INJ 750 MG in PREMIX 1 EACH IV SCH (08:56)
[2019-04-10] MEDS: hydrALAZINE 20 MG/1 ML VIAL IV PRN (12:33)
[2019-04-10] MEDS: DEXTROSE 5% NACL 0.9% 1,000 ML IV SCH (12:34)
[2019-04-10] MEDS: SODIUM CHLORIDE 0.45% 1,000 ML IV SCH (21:11)
[2019-04-10] MEDS: hydrALAZINE 25 MG TABLET PO SCH (21:12)
[2019-04-11] MEDS: PHENYTOIN 100 MG/2 ML VIAL IV SCH ×3 (00:08→16:15)
[2019-04-11] MEDS: INSULIN REGULAR 100 UNIT/ML SUBCUT SCH ×4 (00:08→18:24)
[2019-04-11] MEDS: ALBUTEROL/IPRATROPIUM 3 ML NEB RESP TX SCH ×3 (01:19→13:20)
[2019-04-11 05:37] LABS: Basophils # 0.1 10*3/uL (0.0-0.2); Basophils % 0.8 % (0.0-0.8); Eosinophils # 0.1 10*3/uL (0.0-0.87); Eosinophils % 0.9 % (0.00-10.9); Hematocrit 29.3 VOL% (42.0-52.0); Immature Granulocytes % 1.1 %; Immature Granulocytes Absolute 0.15 #; Lymphocytes # 4.1 10*3/uL (1.4-4.0); Mean Corpuscular HGB Conc 30.7 GM/DL (32-36); Mean Corpuscular Volume 88.3 FL (87-102); Mean Platelet Volume 9.8 FL (9.6-12.0); Monocytes % 7.2 % (1.7-12.7); Platelet Count 406 T/CUMM (130-400); Red Blood Count 3.32 MC/CUMM (3.8-5.5); Red Cell Distribution Width 15.5 % (9.3-17.3)
[2019-04-11] MEDS: methylPREDNISolone SOD SUC 40 MG/1 ML VIAL IV SCH ×2 (05:43→14:43)
[2019-04-11 06:04] LABS: Calcium 8.2 MG/DL (8.5-10.1); Osmolality,Calculated 282.1 MOS/KG (273-304)
[2019-04-11] MEDS: BUDESONIDE 0.25 MG/2 ML NEB RESP TX SCH (07:44)
[2019-04-11] MEDS: METOCLOPRAMIDE 10 MG/10 ML UDCUP PO SCH ×3 (07:54→16:18)
[2019-04-11] MEDS: PANTOPRAZOLE 40 MG TABLET PO SCH (07:57)
[2019-04-11] MEDS: LEVOFLOXACIN INJ 750 MG in PREMIX 1 EACH IV SCH (07:59)
[2019-04-11] MEDS: ACETAMINOPHEN 500 MG TABLET PO SCH (09:21)
[2019-04-11] MEDS: hydrALAZINE 25 MG TABLET PO SCH (09:22)
[2019-04-11] MEDS: NEBIVOLOL 10 MG TABLET PO SCH (09:22)
[2019-04-11] MEDS: FUROSEMIDE 40 MG/4 ML VIAL IV SCH (09:23)
[2019-04-11] MEDS ORDERED: KETOROLAC 15 MG/1 ML VIAL IV ONE (12:20)
[2019-04-11 15:55] VITALS: BP 197/111
[2019-04-11] MEDS: hydrALAZINE 20 MG/1 ML VIAL IV PRN (16:13)
[2019-04-11] MEDS: SODIUM CHLORIDE 0.45% 1,000 ML IV SCH (18:20)
== END 2019-04-11 18:50 | DRG 380 ==
LOC: EDUNIT# → EDBD → N.ED 04:25 → N.EDINP 08:13 → N.ICU 08:58 → N.2E 04-08 16:47
PROVIDERS: ADMIT Internal Medicine; ATTEND Internal Medicine